=== PATIENT | male | born 1990 | race Caucasian/White ===

== ENCOUNTER 2018-03-20 09:20 | Inpatient (IN) | payer OTHER ==
[~2018-03-20] VITALS: Ht 182.9 cm; Wt 127.5 kg
[2018-03-20] VITALS (10 sets, daily range): BP systolic 82–183; BP diastolic 45–102; PULSE 78–130; RESP 12–50; TEMP 101.3–102.5; O2SAT 95–100
[2018-03-20] MEDS ORDERED: MIDAZOLAM HCL 5 MG/ML VIAL (1 ML) ONE (09:28)
--- NOTE | 2018-03-20 09:53 | RADRPT ---
EXAM DATE/TIME: 03/20/2018 09:33 [facility] COMPARISON: No previous studies available for comparison. INDICATIONS : Endotracheal tube placement. MEDICAL HISTORY : None. SURGICAL HISTORY : None. ENCOUNTER: Initial ACUITY: 1 day PAIN SCORE: Non-responsive. LOCATION: upper chest FINDINGS: Endotracheal tube is identified in the tip terminates at the inferior margin of the clavicles. There is streaky infiltrate in the left lower lobe. CONCLUSION: Patchy left basilar airspace disease. Endotracheal tube placement. Per Barakat MD on March 20, 2018 at 9:51 Board Certified Radiologist. This report was verified electronically.
[2018-03-20] MEDS ORDERED: MIDAZOLAM HCL 2 MG/2 ML VIAL ONE ×2 (09:59→10:17)
[2018-03-20] MEDS ORDERED: SODIUM CHLORID 0.9% 500 ML INJ 500 ML IV ONE (10:00)
[2018-03-20] MEDS ORDERED: MIDAZOLAM HCL 2 MG/2 ML VIAL IV ONE ×3 (10:01→10:46)
[2018-03-20] MEDS ORDERED: FUROSEMIDE 40 MG/4 ML VIAL ONE (10:05)
[2018-03-20] MEDS ORDERED: FUROSEMIDE 40 MG/4 ML VIAL IV PUSH ONE ×2 (10:08→15:00)
[2018-03-20] MEDS ORDERED: SODIUM CHLOR 0.9% 1000 ML INJ 1,000 ML IV SCH (10:21)
[2018-03-20] MEDS ORDERED: ADENOSINE IV SOLN 3 MG/ML 2 ML VIAL ONE ×5 (10:27→10:33)
[2018-03-20] MEDS ORDERED: MISC INFORMATION XX ONE (10:30)
[2018-03-20] MEDS ORDERED: ADENOSINE IV SOLN 3 MG/ML 2 ML VIAL IV PUSH ONE ×2 (10:30)
[2018-03-20] MEDS ORDERED: MIDAZOLAM HCL 5 MG/5 ML VIAL ONE (10:39)
--- NOTE | 2018-03-20 10:58 | CATHPROC ---
[facility] Report Study Information Study Number Admission Scheduled Start Study Start [id number] Mar 20 2018 9:20AM 03/20/2018 Mar 20 2018 9:45AM [place] Service Cardiac Catheterization Admit Source Facility Department Emergency department [facility] [employer] Physician and Clinical Staff Initial Orion Crawford Harpsichord Maker Jacquelyn Gomze,RN Harpsichord MakerEthel Beatty,KAREN Recorder Kaleigh Duarte ,RT(R) Scrub Abraham Gomez RCIS(BS) Procedures Performed Procedure Location (Site) Vessel Name Angiogram LV LV Ventricle Coronary Angiograms LCA Left Coronary Coronary Angiograms RCA Right Coronary L Heart Cath Equipment Time Electrical Appliance Repairer Description Size Mfg Part Number Used/Scraped TRANSDUCER, TRUWAVE [id number] 09:55 APARICIO MACDONALD * Used W/STOCKCOCK *[id number] [id number] *[id number] [id number] *[id number] 09:55 Smadex INDUSTRIES PACK, CCL CUSTOM * Used *[id number] 09:55 doo SUPPORT, ARTERIAL ADULT 74939 *[id number] Used [id number] 09:55 Smadex PACER PEN, SKIN DUAL W/ RULER * Used *[id number] 09:57 MEDTRONIC JR 5.0 DXTERITY CATHETER fr 5 [id number] Used BAND, RADIAL COMPRESSION TR [id number] 10:09 Beat.no MEDICAL 29CM Used LARGE 29 *[id number] SHEATH, FR6 RADIAL PRELUDE 09:55 Beat.no MEDICAL FR 6 [id number] Used EASE 11CM [id number] 09:55 Affinergy WIRE, EXCHANGE 260CM 3MMJ 260CM Used *[id number] 09:55 [employer]COMED OMNIPAQUE, 350 MG, 150ML 150ML [id number] Used [id number] 09:55 [facility] BLANKET,WARM AIR CCL * Used *[id number] History: Allergies Allergy Reaction No Known Allergies Labs Hgb (g/dl) Hct (%) 11.60-17.00 35.00-51.00 13.3 39 BUN (mg/dl) Creatinine (mg/dl) BUN:Creatinine (1:x) 7.00-18.00 0.50-1.30 10.00-20.00 16 1.9 8.4 Na (meq/l) K (meq/l) Cl (meq/l) 136.00-145.00 3.50-5.10 98.00-107.00 142 5.4 108 CPK-MB (ng/ML) 0.50-3.60 Not Drawn Medication Medication Total Dose (Bolus/Oral) Medication Total Dosage/Unit 1% XYLOCAINE 10 mL ADENOSINE 48 mcg FENTANYL 50 mcg LASIX 40 mg PROPOFOL 10 mcg/kg/min RADIAL COCKTAIL 5 mL (Bolus) VERSED 4 mg Medications (Bolus/Oral) Medication Time Given Dosage/Unit Administered By Reason PROPOFOL 03/20/2018 9:45:45 AM 10 mcg/kg/min Patient arrived on 10 mcg/kg/min PROPOFOL in Right Antecubital via Peripheral IV. Pump/Drip Flow = 0 ml/hr using D5W. 1% XYLOCAINE 03/20/2018 9:53:54 AM 10 mL Orion Pompa 10 mL 1% XYLOCAINE given in lab by Orion Pompa in Right Radial via Subcutaneous. Ordered by Orion Pompa. RADIAL COCKTAIL 03/20/2018 9:55:41 AM 5 mL (Bolus) Orion Pompa 5 mL (Bolus) RADIAL COCKTAIL given in lab by Orion Pompa via Radial. Using [Solution Name]. Ordere d by Orion Pompa. VERSED 03/20/2018 10:01:00 AM 2 mg Hesher, Ethel 2 mg VERSED given in lab by Ethel Jose RN in Left Antecubital via Peripheral IV. Ordered by Orion Salinas. FENTANYL 03/20/2018 10:02:00 AM 50 mcg Hesher, Ethel 50 mcg FENTANYL given in lab by Ethel Jose RN in Left Antecubital via Peripheral IV. Ordered by Orion Pompa. LASIX 03/20/2018 10:08:51 AM 40 mg Jacquelyn Gomez 40 mg LASIX given in lab by Jacquelyn Gomez RN via Peripheral IV. Ordered by Orion Pompa. VERSED 03/20/2018 10:12:00 AM 2 mg Hesher, Ethel 2 mg VERSED given in lab by Ethel Jose RN in Left Antecubital via Peripheral IV. Ordered by Orion Salinas. ADENOSINE 03/20/2018 10:28:52 AM 12 mcg Jacquelyn Gomez 12 mcg ADENOSINE given in lab by Jacquelyn Gomez, KAREN in Right Hand via Intra-coronary. Ordered by Orion Yarbrough. ADENOSINE 03/20/2018 10:31:50 AM 18 mcg Ethel Jose 18 mcg ADENOSINE given in lab by Ethel Jose RN in Right Hand via Intra-coronary. Ordered by Orion Salinas. ADENOSINE 03/20/2018 10:35:30 AM 18 mcg Ethel Jose 18 mcg ADENOSINE given in lab by Ethel Jose, KAREN in Right Hand via Intra-coronary. Ordered by Orion Salinas. Medication (Drip) Medication Time Given Dosage/Unit Concentration/Unit Diluent (ml) Solution IV Solutions 03/20/2018 9:45:45 AM 50 mL (IV) NaCl .9 Patient arrived on IV Solutions in Left Antecubital via Peripheral IV. Pump/Drip Flow using NaCl .9. IV Solutions 03/20/2018 9:45:46 AM 50 mL (IV) NaCl .9 Patient arrived on IV Solutions in Right Hand via Peripheral IV. Pump/Drip Flow using NaCl .9. Initial Case Assessment Cardiovascular HR Rhythm NIBP 147 stemi 151/72 Neurological State Unresponsive Respiration - General Respiration Rate SpO2 (%) (B/min) 27 94 Final Case Assessment Cardiovascular HR Rhythm NIBP 147 stemi 151/72 Neurological State Unresponsive Respiration - General Respiration Rate SpO2 (%) (B/min) 27 94 Chronological Log Time Study Chronological Log 9:43:52 Patient arrived via Bed. 9:43:53 Patient Name, D.O.B, / Armband Verified By R.N. Assessment: Initial Case, AA=247 BPM, Rhythm=stemi, JKAL=796/72 mmhg 9:44:00 Neurological: State=Unresponsive Respiration: Resp=27 B/min, SpO2=94 % Vitals capture started with the following parameters, Patient=Adult, Interval=5 min, Initial Pr pmpbyo=549 mmHg, 9:44:48 Deflation Rate=5 mmHg, Cuff placed on Left Arm 9:45:00 Consent signed by the physician and the patient and verified by the [facility] [employer] staff. 9:45:10 Patient has been NPO for Less than 6Hrs. 9:45:10 Disposable Defibrillator Pads Placed On Patient. 9:45:15 A # 20 IV was noted in the Antecubital (left). Grade = 0 9:45:15 A # 20 IV was noted in the Hand (right). Grade = 0 9:45:15 A # 20 IV was noted in the Antecubital (right). Grade = 0 Patient arrived on 10 mcg/kg/min PROPOFOL in Right Antecubital via Peripheral IV. Pump/Drip Harvey w = 0 ml/hr using :45:45 D5W. 9:45:45 Patient arrived on IV Solutions in Left Antecubital via Peripheral IV. Pump/Drip Flow using NaCl .9. 9:45:46 Patient arrived on IV Solutions in Right Hand via Peripheral IV. Pump/Drip Flow using NaCl .9. Vitals capture started with the following parameters, Patient=Adult, Interval=5 min, Initial Pr rsqdyu=862 mmHg, 9:48:04 Deflation Rate=5 mmHg, Cuff placed on Left Arm 9:48:42 HR=80 bpm, ZWEK=618/62 mmhg, SpO2=91.0 %, Resp=6 B/min 9:51:42 Reference ECG taken 9:53:47 Case Start 9:53:54 10 mL 1% XYLOCAINE given in lab by Orion Pompa in Right Radial via Subcutaneous. Ordered by Orion Pompa. 9:54:33 Pressure channel 1 zeroed. 9:54:59 Access site was Right Radial Artery. A SHEATH, FR6 RADIAL PRELUDE EASE 11CM FR 6 was advanced into the Radial (right) using the Perc utaneous 9:55:13 technique. 9:55:22 YJ=476 bpm, HHNB=599/72 mmhg, SpO2=94.0 %, Resp=30 B/min 5 mL (Bolus) RADIAL COCKTAIL given in lab by Orion Pompa via Radial. Using [Solution Name]. Ordered by Peña, :55: Orion. A JR 5.0 DXTERITY CATHETER fr 5 was advanced over a wire. OMNIPAQUE, 350 MG, 150ML 150ML was us ed for 9:56:29 injections. 9:57:33 The RCA was injected and visualized at various angles. OMNIPAQUE, 350 MG, 150ML 150ML used. After removing the current catheter a JL 3.5 INFINITI CATHETER FR 5 was advanced over a WIRE, E XCHANGE 260CM 9:58:25 3MMJ 260CM. 9:58:48 HR=56 bpm, CLIU=330/56 mmhg, SpO2=92.0 %, Resp=23 B/min 10:01:00 2 mg VERSED given in lab by Ethel Jose, KAREN in Left Antecubital via Peripheral IV. Order ed by Orion Pompa. 10:02:00 50 mcg FENTANYL given in lab by Ethel Jose RN in Left Antecubital via Peripheral IV. O rdered by Orion Pompa. 10:02:15 The LCA was injected and visualized at various angles. OMNIPAQUE, 350 MG, 150ML 150ML used . After removing the current catheter a PIGTAIL ANG. INFINITI CATHETER FR 5 was advanced over a W [place], EXCHANGE 10:04:06 260CM 3MMJ 260CM. 10:04:33 HV=037 bpm, BOAJ=133/45 mmhg, SpO2=94.0 %, Resp=47 B/min Recorded Pressure: LV, XE=560, Condition=Condition 1 10:05:19 (Left Ventricle) LV 48/47/48 Recorded Pressure: LV, WH=766, Condition=Condition 1 10:05:28 (Left Ventricle) LV 108/4/33 10:06:14 The LV was injected at 12 cc/sec for a total of 40. contrast used. 10:08:12 Catheter was removed 10:08:49 JC=454 bpm, MTYB=691/47 mmhg, SpO2=92.0 %, Resp=25 B/min 10:08:51 40 mg LASIX given in lab by Jacquelyn Gomez, KAREN via Peripheral IV. Ordered by Valentina Pompa 10:09:17 Case End Radial Compression Device Used. 15 mLs of air placed in BAND, RADIAL COMPRESSION TR LARGE 29 29 CM. Affected 10:10:58 hand ~O2 SATURATION~ % O2 saturation. 10:12:00 2 mg VERSED given in lab by Ethel Jose, KAREN in Left Antecubital via Peripheral IV. Order ed by Orion Pompa. 10:14:33 IS=851 bpm, HIMS=377/64 mmhg, SpO2=92.0 %, Resp=13 B/min 10:19:34 ET=668 bpm, EHDR=287/72 mmhg, SpO2=90.0 %, Resp=61 B/min Assessment: Final Case, VQ=481 BPM, Rhythm=stemi, VDFO=249/72 mmhg 10:21:28 Neurological: State=Unresponsive Respiration: Resp=27 B/min, SpO2=94 % 10:23:44 MS=522 bpm, SZQY=567/94 mmhg, SpO2=93.0 %, Resp=40 B/min 10:26:08 Catheter(s) removed without difficulty 10::20 Cine recording checked. 10:26:30 Bedside Report will be given. 10::43 A Left Heart Cath was performed. 10:28:47 Vitals capture stopped. 10:28:52 12 mcg ADENOSINE given in lab by Jacquelyn Gomez RN in Right Hand via Intra-coronary. Orde red by Orion Pompa. 10:31:50 18 mcg ADENOSINE given in lab by Ethel Jose RN in Right Hand via Intra-coronary. Order ed by Orion Pompa. Vitals capture started with the following parameters, Patient=Adult, Interval=5 min, Initial Pr igfcqw=815 mmHg, 10:32:31 Deflation Rate=5 mmHg, Cuff placed on Left Arm 10:33:25 TPSG=900/61 mmhg, SpO2=92.0 % 10:35:30 18 mcg ADENOSINE given in lab by Ethel Jose RN in Right Hand via Intra-coronary. Orde red by Orion Pompa. 10:39:36 WUII=694/67 mmhg 10:41:35 Patient moved to stretcher 10:41:[address] End Study - Contrast Media Used In Study Contrast Total Opened (mL) Total Used (mL) Total Wasted (mL) Omnipaque 140 140 0 End Study - Maximum Contrast Load Max Contrast Load (mL) 276.3 End Study - Radiation Exposure Fluoro Time (minutes) 4.9 End Study - Patient Disposition Complications Transferred To Interventional Outcome No Critical Care Bed No attempt made
[2018-03-20] MEDS ORDERED: BACITRACIN OINT 0.9 GM PKT TOP ONE (11:00)
[2018-03-20] MEDS ORDERED: PROPOFOL 500 MG/50 ML INJ 50 ML ONE (11:06)
[2018-03-20] MEDS ORDERED: IOHEXOL 350 MG/ML 10 ML VIAL (for RAD DIAG) IVCONTRAST ONE ×2 (11:18→11:47)
--- NOTE | 2018-03-20 11:20 | RADRPT ---
EXAM DATE/TIME: 03/20/2018 10:57 [facility] COMPARISON: No previous studies available for comparison. INDICATIONS : Syncopal episode today collapsed while running. RADIATION DOSE: 60.57 CTDIvol (mGy) MEDICAL HISTORY : Non-responsive. SURGICAL HISTORY : Non-responsive. ENCOUNTER: Initial ACUITY: 1 day PAIN SCALE: Non-responsive LOCATION: cranial TECHNIQUE: Multiple contiguous axial images were obtained of the head. Using automated exposure control and adj ustment of the mA and/or kV according to patient size, radiation dose was kept as low as reasonably a chievable to obtain optimal diagnostic quality images. DICOM format image data is available electro nically for review and comparison. FINDINGS: There is contrast seen within the intracranial arteries and veins which is somewhat limited for detec tion of acute hemorrhage. Ventricles and cisterns are of normal size and configuration. No fractures are seen. There are no hematoma is present. No mass or infarct. CONCLUSION: Normal examination. Per Barakat MD on March 20, 2018 at 11:17 Board Certified Radiologist. This report was verified electronically.
--- NOTE | 2018-03-20 11:25 | RADRPT ---
EXAM DATE/TIME: 03/20/2018 11:04 [facility] COMPARISON: CHEST SINGLE AP, March 20, 2018, 9:33. INDICATIONS : Syncopal episode, suddenly collapsed when running. IV CONTRAST: 72 cc Omnipaque 350 (iohexol) IV RADIATION DOSE: 23.38 CTDIvol (mGy) MEDICAL HISTORY : Non-responsive. SURGICAL HISTORY : Non-responsive. ENCOUNTER: Initial ACUITY: 1 day PAIN SCALE: Non-responsive LOCATION: chest TECHNIQUE: Volumetric scanning of the chest was performed using a pulmonary embolism protocol MIP images were re constructed. Using automated exposure control and adjustment of the mA and/or kV according to patien t size, radiation dose was kept as low as reasonably achievable to obtain optimal diagnostic quality images. DICOM format image data is available electronically for review and comparison. Follow-up recommendations for detected pulmonary nodules are based at a minimum on nodule size and pa tient risk factors according to Fleischner Society Guidelines. FINDINGS: PULMONARY ARTERIES: No filling defects are seen in the pulmonary arteries through the segmental level. LUNGS: Extensive, dependent areas of consolidation in both hemithoraces, left greater than right. In additio n, there are innumerable ground glass nodular densities in the aerated portions of the lung, most pro minent in the apices. PLEURAE: There is no pleural thickening or pleural effusion. MEDIASTINUM: There is good visualization of the great vessels of the middle mediastinum. No evidence of mediastin al or hilar adenopathy/mass. MUSCULOSKELETAL: Within normal limits for patient age. MISCELLANEOUS: The visualized upper abdominal organs demonstrate no acute abnormality. Diffuse hepatic fatty infiltr ation. CONCLUSION: 1. No pulmonary embolus. 2. Fairly extensive dependent areas of consolidation in both hemithoraces. 3. Innumerable ground glass nodular densities in the aerated portions of the lung most prominent in t he apices. Findings are nonspecific but could represent alveolar hemorrhage or septic emboli. Dexter Benitez MD on March 20, 2018 at 11:18 Board Certified Radiologist. This report was verified electronically.
--- NOTE | 2018-03-20 11:41 | MA ---
cc: Orion Pompa MD DATE: 03/20/2018 PROCEDURES PERFORMED: 1. Fluoroscopy with interpretation. 2. Coronary angiography. 3. Left heart catheterization. 4. Left ventriculography. 5. Ascending aortography. REASON FOR PROCEDURE: This is an emergent cardiac catheterization, ST-elevation AL protocol was initiated. No consents were able to be obtained. METHODS: The right wrist was prepped and draped in sterile fashion. The right wrist was anesthetized with 2% lidocaine. Right radial artery was cannulated and a 6-Japanese, 7-cm sheath was placed without difficulty. LEFT HEART CATHETERIZATION: Left ventricular pressures: 110/20 mmHg. LEFT VENTRICULOGRAPHY: Left ventriculography performed in right anterior oblique view using a 5-Japanese angled pigtail catheter and a 40 mL contrast injection. Left ventriculography revealed hyperdynamic left ventricular systolic function with ejection fraction of 75%. CORONARY ANGIOGRAPHY: 1. Left main coronary is angiographically normal. 2. Left anterior descending coronary artery is angiographically normal. 3. Left circumflex gives rise to ramus intermedius branch and obtuse marginal branch, both of which are angiographically normal. 4. Right coronary artery is a dominant vessel which gives rise to posterior descending coronary artery and is angiographically normal. ASCENDING AORTOGRAPHY: Ascending aortography is performed to rule out ascending dissection. A 5-Japanese angled pigtail catheter was placed in the ascending aorta. Ascending aortography revealed normal ascending aorta. No evidence of dissection or dilation. CONCLUSIONS: 1. Angiographically normal coronary arteries. 2. Hyperdynamic left ventricular systolic function. 3. Normal ascending aorta. PLAN: The patient is still quite tachycardic, appears to be sinus tachycardia, although cannot rule out atrial flutter 2:1. We will transfer the patient down emergently for a CT scan of the chest to rule out pulmonary embolism. I have discussed the case with the launch check out. We will obtain a STAT echocardiogram when he arrives in the intensive care unit. Orion Pompa MD JOSE/SB , 11:03 AM , 11:39 AM
[2018-03-20] MEDS ORDERED: RESP: ALBUTEROL 2.5 MG/IPRATROPIUM 0.5 MG NEB (PRN) INH (11:45)
[2018-03-20] MEDS ORDERED: SODIUM PHOSPHATE INJ 30 MMOL in SODIUM CHLOR 0.9% 250 ML INJ 240 ML IV PRN (11:45)
[2018-03-20] MEDS ORDERED: MAGNESIUM HYDROXIDE SUSP 30 ML CUP PO PRN (11:45)
[2018-03-20] MEDS ORDERED: NURSING INFORMATION XX SCH (11:45)
[2018-03-20] MEDS ORDERED: CHLORHEXIDINE GLUCONATE 2 % 1 PACK (2 CLOTHS) TOP PRN (11:45)
[2018-03-20] MEDS ORDERED: SODIUM CHLORIDE 0.9% FLUSH 10 ML FLUSH IV FLUSH PRN (11:45)
[2018-03-20] MEDS ORDERED: DEXMEDETOMIDINE INJ 200 MCG in SODIUM CHLORIDE 0.9% INJ 50 ML IV PRN (11:45)
[2018-03-20] MEDS ORDERED: POTASSIUM PHOSPHATE MONOBASIC 500 MG TAB PO PRN (11:45)
[2018-03-20] MEDS ORDERED: MAGNESIUM SULFATE INJ 4 GM in SODIUM CHLORIDE 0.9% INJ 92 ML IV PRN (11:45)
[2018-03-20] MEDS ORDERED: ONDANSETRON ODT 4 MG TAB PO PRN (11:45)
[2018-03-20] MEDS ORDERED: ACETAMINOPHEN 325 MG TAB PO PRN (11:45)
[2018-03-20] MEDS ORDERED: POTASSIUM PHOSPHATE INJ 30 MMOL in SODIUM CHLOR 0.9% 250 ML INJ 250 ML IV PRN (11:45)
[2018-03-20] MEDS ORDERED: LACTULOSE SYRUP 20 GM/30 ML CUP PO PRN (11:45)
[2018-03-20] MEDS ORDERED: SENNOSIDES 8.6 MG TAB PO PRN (11:45)
[2018-03-20] MEDS ORDERED: POTASSIUM CHLOR 40 MEQ PREMIX 100 ML IV PRN ×2 (11:45)
[2018-03-20] MEDS ORDERED: BISACODYL 10 MG SUPP RECTAL PRN (11:45)
[2018-03-20] MEDS ORDERED: MAGNESIUM SULFATE INJ 2 GM in SODIUM CHLORIDE 0.9% INJ 96 ML IV PRN (11:45)
[2018-03-20] MEDS ORDERED: POTASSIUM PHOSPHATE MONOBASIC 500 MG TAB PO/TUBE PRN (11:45)
[2018-03-20] MEDS ORDERED: POTASSIUM CHLORIDE 25 MEQ EFFERVESCENT TAB PO PRN (11:45)
[2018-03-20] MEDS ORDERED: POTASSIUM CHLOR 20 MEQ PREMIX 100 ML IV PRN ×2 (11:45)
[2018-03-20] MEDS ORDERED: MAGNESIUM OXIDE 400 MG TAB PO PRN (11:45)
--- NOTE | 2018-03-20 11:51 | MB ---
cc: Orion Pompa MD DATE: 03/20/2018 INDICATION: Cardiac arrest. HISTORY OF PRESENT ILLNESS: He is a 27-year-old gentleman who is otherwise healthy with cardiac arrest. The patient is in a [employer], was running with his group when he developed palpitations, lightheadedness and syncope. The details are not clear. No CPR was done. The patient was brought via EMS and en route developed confusion and possible respiratory distress. In the ER, there was wide complex tachycardia and amiodarone 300 mg IV given. The patient was intubated and sedated. History is not obtainable, but there is no known reported medical problems. In the Emergency Department, he had an electrocardiogram which showed right bundle branch block with associated ST changes and continued ventricular ectopy therefore we elected to bring him emergently to the cardiac catheterization lab. PAST MEDICAL HISTORY: Unknown. SOCIAL HISTORY: Unknown. FAMILY HISTORY: Unknown. ALLERGIES: Unknown. MEDICATIONS: Unknown. REVIEW OF SYSTEMS: Unobtainable. PHYSICAL EXAMINATION: GENERAL: The patient is intubated and sedated. Initial hypotension with systolic blood pressure in the 80s; he is tachycardic. Heart rate is 140-150 beats per minute. LUNGS: Bibasilar crackles. HEART: Tachycardic. No murmurs, rubs or gallops. ABDOMEN: Distended. EXTREMITIES: Good pulses. NEUROLOGIC: He has reactive pupils, but otherwise not moving extremities. LABORATORY DATA: Labs pending. ASSESSMENT: 1. Syncope/possible cardiac arrest. 2. Underlying arrhythmia not clear. 3. Abnormal electrocardiogram. PLAN: The patient will be taken emergently to the cardiac catheterization lab for coronary angiography to rule out obstructive coronary disease, spontaneous dissection, plaque rupture, or anomalous coronary artery. We will also plan for ascending aortogram to rule out dissection and possible left ventriculography to see if he has hyperdynamic left ventricular function suggestive of HOCM. He is currently intubated with ventricular ectopy. MD JOSE Castillo/SB , 11:29 AM , 11:50 AM [facility]
[2018-03-20] MEDS: INSULIN NovoLIN REGULAR SUPPLEMENTAL SCALE SQ SCH ×3 (12:00→21:00)
[2018-03-20] MEDS ORDERED: SODIUM CHLOR 0.9% 1000 ML INJ 1,000 ML IV ONE (12:00)
[2018-03-20] MEDS ORDERED: GLUCAGON 1 MG/ML VIAL OTHER PRN (12:00)
[2018-03-20] MEDS: SODIUM CHLOR 0.9% 1000 ML INJ 1,000 ML IV SCH ×2 (12:28→22:53)
[2018-03-20] MEDS ORDERED: IOHEXOL 350 MG/ML 100 ML BTL (for Cath Lab) OTHER ONE (12:47)
[2018-03-20] MEDS ORDERED: IOHEXOL 350 MG/ML 50 ML BTL (for Cath Lab) OTHER ONE (12:47)
--- NOTE | 2018-03-20 13:04 | HHI.HP ---
[facility] Service Critical Care Medicine Primary Care Physician Unknown Admission Diagnosis Syncopal Episode/ Cardiac Arrest Diagnosis: Chief Complaint: Syncopy Travel History International Travel<30 Days: No Contact w/Intl Traveler <30 Da: No Traveled to Known Affected Are: No History of Present Illness This is a 27-year-old male that was exercising [place] the [employer] and per reports and review of medical records, became lightheaded and had a syncopal episode. The patient was admitted to the ED, was noted to have significant respiratory distress and possibly V. tach in route to the hospital. In the ED EKG was obtained which showed a right bundle and some ST changes and a STEMI notification was activated in the ED. the patient was seen by Dr. Pompa, cardiac catheterization emergently was performed. Per telephonic report from Dr. Pompa no obstructive coronary artery disease was visualized. CT angiography was performed to rule out pulmonary embolus and ascending aortogram to rule out dissection. Critical care medicine was consulted. Echo currently being performed. Upon immediate evaluation the patient was noted to have pink frothy sputum in the ET tube, dyssynchronous with the ventilator, spontaneous eye opening was noted however patient was not following commands, patient was on a propofol infusion, sinus tach heart rate 135, normotensive with a blood pressure 134/85. Review of Systems ROS Limitations: Clinical Condition Past Family Social History Allergies: Coded Allergies: No Known Allergies (Verified Allergy, Unknown, 03/20/18) Past Medical History Unable to obtain from patient. Obtained from and patient's parents, no pertinent significant medical history. Past Surgical History Unable to obtain Reported Medications Unable to obtain 2/2 medical condition Active Ordered Medications see MAR Family History Unable to obtain Social History Patient is . Vocation [email or web address] Physical Exam Vital Signs Vital Signs Date Time Temp Pulse Resp B/P (MAP) Pulse Ox O2 Delivery O2 Flow Rate FiO2 03/20/18 11:33 97 100 03/20/18 10:30 95 100 03/20/18 09:31 100 03/20/18 09:30 99 100 03/20/18 09:30 84 12 144/51 (82) 100 Auto-Vent 03/20/18 09:27 81 12 100 Auto-Vent 03/20/18 09:22 78 12 82/54 (63) 99 Physical Exam GENERAL: This is a well-developed well-nourished male currently overbreathing the vent with spontaneous eye opening but not following commands SKIN: Warm and dry. HEAD: Atraumatic. Normocephalic. EYES: Pupils equal and round. Pupils brisk and reactive . No scleral icterus. No injection or drainage. ENT: No nasal bleeding or discharge. Mucous membranes pink and moist. NECK: Trachea midline. No JVD. CARDIOVASCULAR: Normal rate, regular rhythm. RESPIRATORY: No accessory muscle use. Clear to auscultation. Breath sounds equal bilaterally. GASTROINTESTINAL: Abdomen soft, non-tender, nondistended. No guarding. MUSCULOSKELETAL: Extremities without clubbing, cyanosis, or edema. No obvious deformities. NEUROLOGICAL:RASS -1. Spontaneous eye opening, some tracking noted. Not following commands Laboratory Laboratory Tests Test 03/20/18 11:42 Bedside Hemoglobin 13.3 Bedside Hematocrit 39.0 Bedside Sodium 142 Bedside Potassium 5.4 Bedside Chloride 108 Bedside Blood Urea Nitrogen 16 Bedside Creatinine 1.9 Bedside Glucose 163 Imaging Last Impressions Head CT 03/20/18 0000 Signed Impressions: Service Date/Time: Tuesday, March 20, 2018 10:57 - CONCLUSION: Normal examination. Per Barakat MD Chest X-Ray 03/20/18 0000 Signed Impressions: Service Date/Time: Tuesday, March 20, 2018 09:33 - CONCLUSION: Patchy left basilar airspace disease. Endotracheal tube placement. Per Barakat MD CT Angiography 03/20/18 0000 Signed Impressions: Service Date/Time: Tuesday, March 20, 2018 11:04 - CONCLUSION: 1. No pulmonary embolus. 2. Fairly extensive dependent areas of consolidation in both hemithoraces. 3. Innumerable ground glass nodular densities in the aerated portions of the lung most prominent in the apices. Findings are nonspecific but could represent alveolar hemorrhage or septic emboli. Dexter Benitez MD Septic Shock Reassessment Septic shock perfusion: reassessment completed Caprini VTE Risk Assessment Caprini VTE Risk Assessment: Mod/High Risk (score >= 2) Caprini Risk Assessment Model Point Value = 1 Point Value = 2 Point Value = 3 Point Value = 5 Age 41-60 Minor surgery BMI > 25 kg/m2 Swollen legs Varicose veins or History of unexplained or recurrent spontaneous Oral contraceptives or hormone replacement Sepsis (< 1 month) Serious lung disease, including pneumonia (< 1 month) Abnormal pulmonary function Acute myocardial infarction Congestive heart failure (< 1 month) History of inflammatory bowel disease Medical patient at bed rest Age 61-74 Arthroscopic surgery Major open surgery (> 45 min) Laparoscopic surgery (> 45 min) Malignancy Confined to bed (> 72 hours) Immobilizing plaster cast Central venous access Age >= 75 History of VTE Family history of VTE Factor V Leiden Prothrombin [id number] Lupus anticoagulant Anticardiolipin antibodies Elevated serum homocysteine Heparin-induced thrombocytopenia Other congenital or acquired thrombophilia Stroke (< 1 month) Elective arthroplasty Hip, pelvis, or leg fracture Acute spinal cord injury (< 1 month) Prophylaxis Regimen Total Risk Factor Score Risk Level Prophylaxis Regimen 0-1 Low Early ambulation 2 Moderate Order ONE of the following: *Sequential Compression Device (SCD) *Heparin 5000 units SQ BID 3-4 Higher Order ONE of the following medications: *Heparin 5000 units SQ TID *Enoxaparin/Lovenox 40 mg SQ daily (WT < 150 kg, CrCl > 30 mL/min) *Enoxaparin/Lovenox 30 mg SQ daily (WT < 150 kg, CrCl > 10-29 mL/min) *Enoxaparin/Lovenox 30 mg SQ BID (WT < 150 kg, CrCl > 30 mL/min) AND/OR *Sequential Compression Device (SCD) 5 or more Highest Order ONE of the following medications: *Heparin 5000 units SQ TID (Preferred with Epidurals) *Enoxaparin/Lovenox 40 mg SQ daily (WT < 150 kg, CrCl > 30 mL/min) *Enoxaparin/Lovenox 30 mg SQ daily (WT < 150 kg, CrCl > 10-29 mL/min) *Enoxaparin/Lovenox 30 mg SQ BID (WT < 150 kg, CrCl > 30 mL/min) AND *Sequential Compression Device (SCD) Assessment and Plan Problem List: (1) Aspiration of gastric contents ICD Code: T17.910A - Gastric contents in respiratory tract, part unspecified causing asphyxiation, initial encounter (2) Syncope ICD Code: R55 - Syncope and collapse (3) Cardiac arrest ICD Code: I46.9 - Cardiac arrest, cause unspecified Assessment and Plan This is a 27-year-old otherwise healthy male that during exercise and running at the [employer] had a syncopal and possible cardiac arrest. The patient most likely aspirated resulting in respiratory insufficiency and requirement for emergent intubation. Emergent cardiac catheterization revealed no occlusive coronary artery disease. Echo is pending regarding rule out cardiac structural abnormalities. Assessment of neurological status has not been obtained. The patient is critically ill admit to ICU Plan by systems: Neurologic: Encephalopathy Neuro checks per ICU protocol Plan weaning of propofol infusion transition to Precedex infusion to facilitate ventilator weaning Minimize sedative type medication 100 mics of fentanyl IV push to maintain ventilator synchrony Obtain urine drug screen Respiratory: Acute hypoxemic respiratory failure secondary to cardiac event and possible aspiration Maintain O2 sat greater than 92% Obtain ABG on FiO2 of 50 % Follow-up chest x-ray CT Angio chest- No pulmonary embolus. Fairly extensive dependent areas of consolidation in both hemithoraces. Innumerable ground glass nodular densities in the aerated portions of the lung most prominent in the apices. Findings are nonspecific but could represent alveolar hemorrhage or septic emboli. Duo nebs every 6 hours scheduled and every 2 hours as needed Ventilator bundle Cardiovascular: S/P cardiac arrest Cardiology following- Dr. Pompa 03/20 emergent cardiac catheterization-verbal report no occlusive coronary artery disease follow-up formal report. Bolused with 1 L normal saline, patient's heart rate was in the 150s in the cardiac label stamper adenosine 1 dose was given without resolution Telemetry sinus tach-we will consider Cardizem or metoprolol, after bolus of IV fluid will continue to monitor Obtain EKG follow-up QTc Obtain echo Renal: Maintain Reed -- Strict I/Os FEN/GI: Obtain stat BMP, magnesium and phosphorus Replete electrolytes per ICU protocol Insert OGT Maintain NPO status Bowel regimen Heme/ID: Monitor CBC No cultures indicated at this time, will obtain blood urine and sputum cultures if indicated Endocrine: Glucose monitoring per ICU protocol, low-dose regimen -- SSI Prophylaxis: GI Prophylaxis Famotidine IV DVT Prophylaxis -- SCDs Heparin 5000 subcu twice daily Lines: Peripheral IVs providing adequate access at this time. Central line if indicated Dispo: my billing statement This patient remains critically ill with one or more organ systems which are or may become a threat to life. I have spent in excess of 65 minutes discontinuously in the care and management of this patient. This time is exclusive of procedures, and includes, but is not limited to, evaluation of the patient, review of the medical record, discussions with family, consultants, nursing staff, or respiratory therapy, and documentation in the medical record. Code Status Full Discussed Condition With I discussed with medical status update. Plan to decrease sedatives utilize Precedex to facilitate ventilator weaning obtain neurological status obtain SBT trials in anticipation of possible extubation. Lucia Monaco MD March 20, 2018 13:04
[2018-03-20] MEDS ORDERED: PROPOFOL 1000 MG/100 ML INJ 100 ML IV PRN (13:15)
--- NOTE | 2018-03-20 13:18 | ECHRPT ---
Indication: CONCLUSIONS Technically difficult study. The left ventricular systolic function is normal with an estimated ejection fraction in the range of 65-70%. The left ventricle is not well visualized. Wall thickness is measured at the upper limits of normal. The right ventricle was not well visualized. The right atrium is not well visualized. The aortic root and proximal ascending aorta are not well visualized. Trace mitral valve regurgitation. No aortic valve regurgitation. No aortic valve stenosis. No tricuspid regurgitation. The pulmonary valve is not well visualized. The inferior vena cava was not well visualized. BP: / HR: Rhythm: Technical Quality:Technically difficult study FINDINGS LEFT VENTRICLE The left ventricular systolic function is normal with an estimated ejection fraction in the range of 65-70%. The left ventricle is not well visualized. Wall thickness is measured at the upper limits of normal. RIGHT VENTRICLE The right ventricle was not well visualized. LEFT ATRIUM The left atrial size is normal. RIGHT ATRIUM The right atrium is not well visualized. ATRIAL SEPTUM Normal atrial septal thickness without atrial level shunting by limited color doppler interrogation. AORTA The aortic root and proximal ascending aorta are not well visualized. MITRAL VALVE Trace mitral valve regurgitation. AORTIC VALVE No aortic valve regurgitation. No aortic valve stenosis. TRICUSPID VALVE No tricuspid regurgitation. PULMONARY VALVE The pulmonary valve is not well visualized. VESSELS The inferior vena cava was not well visualized. PERICARDIUM No pericardial effusion. Orion Pompa MD, FACC (Electronically Signed) Final Date:20 Mar 2018 13:17
[2018-03-20] MEDS: HEPARIN SODIUM - SQ 10,000 UNITS/ML VIAL SQ SCH (14:00)
[2018-03-20] MEDS: MIDAZOLAM 50 MG/50 ML INJ 50 ML IV PRN ×2 (14:00→22:53)
--- NOTE | 2018-03-20 14:26 | PD ---
HPI Chief Complaint: Respiratory Distress Time Seen by Provider: 10:41 Travel History International Travel<30 days: No Contact w/Intl Traveler<30days: No Traveled to known affect area: No History of Present Illness HPI Patient was brought in by EMS secondary to syncopal episode and altered mental status. 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 EMS arrived on the scene his GCS was 3, room air sat was between 60-70, bradycardic, hypotensive. He was intubated in the field with Versed and etomidate and transported to the ER. [facility] Social History Tobacco Use: No (unsure, patient intubated) Allergies-Medications (Allergen,Severity, Reaction): Coded Allergies: No Known Allergies (Verified Allergy, Unknown, 03/20/18) Reported Meds & Prescriptions Reported Meds & Active Scripts Active Active Prescriptions or Reported Medications Unobtainable Review of Systems ROS Limitations: Intubated Physical Exam Narrative GENERAL: Patient is intubated. SKIN: Diaphoretic. HEAD: Atraumatic. Normocephalic. EYES: Pupils equal and round. No scleral icterus. No injection or drainage. ENT: No nasal bleeding or discharge. Mucous membranes pink and moist. NECK: Trachea midline. No JVD. CARDIOVASCULAR: Regular rate,irreg rhythm. No murmur appreciated. RESPIRATORY: No accessory muscle use. Clear to auscultation. Breath sounds equal bilaterally. GASTROINTESTINAL: Abdomen soft, non-tender, obese. MUSCULOSKELETAL: No obvious deformities. No clubbing. No cyanosis. No edema. NEUROLOGICAL: Intubated PSYCHIATRIC: Intubated Data Data Last Documented VS Vital Signs Date Time Temp Pulse Resp B/P (MAP) Pulse Ox O2 Delivery O2 Flow Rate FiO2 03/20/18 10:30 95 100 03/20/18 09:30 84 12 144/51 (82) Auto-Vent Orders Orders Midazolam Inj (Versed Inj) (03/20/18 09:28) Chest, Single Ap (03/20/18 ) Cardiac Catheterization (03/20/18 ) Midazolam Inj (Versed Inj) (03/20/18 09:59) Fentanyl Inj (Fentanyl Inj) (03/20/18 09:59) Furosemide Inj (Lasix Inj) (03/20/18 10:05) Ct Pulmonary Angiogram (03/20/18 ) Midazolam Inj (Versed Inj) (03/20/18 10:17) Vital Signs (Adult) Q15MX4,Q30MX4,Q1HX4 (03/20/18 10:21) Activity Bed Rest (03/20/18 10:21) Activity Oob Ad Isatu (03/20/18 10:21) Instruction (03/20/18 10:21) Notify Dr: Other (03/20/18 10:21) Misc Information (03/20/18 10:30) Sodium Chlor 0.9% 1000 Ml Inj (Ns 1000 M (03/20/18 10:21) Bacitracin Oint Packet (Bacitracin Oint (03/20/18 11:00) Consult Director Employment (03/20/18 ) Veterinary Dentist / Telemetry SHARRI.[email or web address] (03/20/18 10:21) Adenosine Inj (Adenocard Inj) (03/20/18 10:27) Adenosine Inj (Adenocard Inj) (03/20/18 10:30) MDM Medical Decision Making Medical Screen Exam Complete: Yes Emergency Medical Condition: Yes Differential Diagnosis Aortic dissection, PE, ACS, CVA, intracranial hemorrhage Narrative Course Upon arrival placement of the ET tube was confirmed. Respiratory was at bedside. Another IV was placed and 2 L of IV fluid bolus. Was placed on a youth nutritional monitor and EKG was obtained. EKG showed diffuse ST depression. Dr. Pompa, materials planning analyst cellulose insulation helper, was immediately consulted. EKG was sent to Dr. Pompa. While awaiting Dr. Pmopa's call back, on the monitor patient started having V. tach with a pulse. He was given [address] Pompa called back and advised to call a STEMI alert. Patient was placed on the portable monitor and was transported to the [facility]. While in route his heart rate became weak and decreased to 30s and he was given 1 mg IV epi. His heart rate was in the 80s upon arrival to the lab analyst. Labs were sent from the emergency department but not resulted prior to the patient being transported to the [facility]. Diagnosis Primary Impression: Syncope Qualified Codes: R55 - Syncope and collapse Additional Impression: Respiratory distress Admitting Information Admitting Physician Requests: Admit Scripts Unable to Obtain Active Prescriptions or Reported Meds Condition: Critical Yarely Pinon MD March 20, 2018 14:25
[2018-03-20] MEDS ORDERED: MIDAZOLAM HCL 2 MG/2 ML VIAL IV PUSH ONE (15:15)
[2018-03-20] MEDS ORDERED: Vancomycin Consult Pharmacy 1 EA OTHER SCH (15:15)
[2018-03-20] MEDS ORDERED: MIDAZOLAM 100 MG/100 ML INJ 100 ML IV PRN (15:30)
[2018-03-20] MEDS: fentaNYL DRIP 250 ML IV PRN (16:06)
[2018-03-20] MEDS: PIPERACIL-TAZO 3.375 GM PREMIX 50 ML IV SCH (16:32)
[2018-03-20] MEDS: AZITHROMYCIN INJ 500 MG in SODIUM CHLOR 0.9% 250 ML INJ 250 ML IV SCH (16:33)
[2018-03-20] MEDS: RESP: ALBUTEROL 2.5 MG/IPRATROPIUM 0.5 MG NEB (SCH) INH ×2 (16:59→22:02)
[2018-03-20] MEDS ORDERED: VANCOMYCIN INJ 2,000 MG in SODIUM CHLORID 0.9% 500 ML INJ 500 ML IV ONE (17:00)
[2018-03-20] MEDS ORDERED: PHENYLEPHRINE HCL 10 MG/ML VIAL ONE ×2 (17:57→20:00)
[2018-03-20] MEDS: ARTIFICIAL TEARS OPTH SOLN 15 ML BTL EACH EYE SCH (18:00)
[2018-03-20 18:39] LABS: BICARBONATE 18.8 MEQ/L (21.0-32.0); BLOOD UREA NITROGEN 24 MG/DL (7-18); CALCIUM 7.6 MG/DL (8.5-10.1); CHLORIDE 110 MEQ/L (98-107); CREATININE 3.09 MG/DL (0.60-1.30); GLOMERULAR FILTRATION RATE 25 ML/MIN (>89); GLUCOSE,RANDOM 150 MG/DL (74-106); MAGNESIUM 2.6 MG/DL (1.5-2.5); SODIUM (NA) 143 MEQ/L (136-145)
[2018-03-20] MEDS ORDERED: TERBUTALINE INJ 1 MG/ML AMP SQ PRN (18:45)
[2018-03-20 19:13] LABS: TROPONIN I GREATER THAN 40.00 NG/ML (0.02-0.05)
--- NOTE | 2018-03-20 20:18 | PD.PROCEDR ---
Procedure Note Procedure Procedure- left radial arterial line placement Indication- invasive hemodynamic monitoring Description of procedure: The patient was placed in supine, position. The area was exposed and cleansed with ChloraPrep, times two. Large sterile drape was used to cover the patient, with the site exposed, under sterile conditions including cap, face mask, and sterile gloves. On single attempt, the introducer needle was inserted and arterial flash was obtained. The guide wire was then advanced without any restriction and the needle was removed. Using Seldinger technique the 16 cm arterial catheter was advanced over the guide wire. The guide wire was removed. Good arterial waveform obtained. Antibiotic disc was placed around arterial line at puncture site. The arterial line was secured to the skin with one interrupted silk sutures. The area was bandaged with sterile see-through central line bandage. Deirdre Martell MD March 20, 2018 20:18
--- NOTE | 2018-03-20 20:21 | PD.PROCEDR ---
Central Line Procedure REASON FOR PROCEDURE Central venous access PROCEDURE PERFORMED Central line placement: LIJ central line CONSENT Informed consent for procedure was obtained and time out performed. The risks and benefits of the procedure were discussed to include but limited to bleeding , clot formation, infection, and even . ANESTHESIA Local injection of 1% Lidocaine DESCRIPTION OF THE PROCEDURE The patient was placed in supine, mild Trendelenburg position. The area was exposed and cleansed with ChloraPrep, times two. Large sterile drape was used to cover the patient, with the site exposed, under sterile conditions including cap, face mask, sterile gown, and sterile gloves. On single attempt, the introducer needle was inserted with negative pressure in syringe and venous flash was obtained. The guide wire was then advanced without any restriction and the needle was removed. The dilator was used without any complications. Using Seldinger technique the 20 cm 7F triple lumen catheter was advanced over the guide wire to a depth of 18 centimeters. The guide wire was removed. All ports were aspirated with dark venous blood return and flushed easily with sterile saline. All ports were capped. Antibiotic disc was placed around central line at puncture site. The central line was secured to the skin with two interrupted 2.0 silk sutures. The area was bandaged with sterile see- through central line bandage. RADIOLOGICAL DATA Ultrasound guidance was used to locate LIJ. Doppler/color flow was used to confirm venous flow. COMPLICATIONS: No apparent complications ESTIMATED BLOOD LOSS: Less than 1 cc. Deirdre Martell MD March 20, 2018 20:21
[2018-03-20] MEDS ORDERED: HEPARIN-D5W 25,000 U/250 ML 250 ML IV PRN (20:45)
[2018-03-20] MEDS ORDERED: ASPIRIN 81 MG CHEW TAB CHEW SCH (20:45)
[2018-03-20 21:09] LABS: HEMATOCRIT 44.3 % (39.0-51.0); HEMOGLOBIN 14.9 GM/DL (13.0-17.0); MEAN CELL VOLUME 89.7 FL (80.0-100.0); MEAN CORPUSCULAR HEMOGLOBIN 30.2 PG (27.0-34.0); MEAN CORPUSCULAR HGB CONC 33.7 % (32.0-36.0); MEAN PLATELET VOLUME 7.9 FL (7.0-11.0); PLATELET COUNT 112 TH/MM3 (150-450); RED BLOOD COUNT 4.94 MIL/MM3 (4.50-5.90); RED CELL DISTRIBUTION WIDTH 13.9 % (11.6-17.2); WHITE BLOOD COUNT 26.9 TH/MM3 (4.0-11.0)
--- NOTE | 2018-03-20 21:28 | HHI.PR ---
Subjective Remarks Patient was evaluated again multiple times between 6:45 PM and 8.45 PM today. I was informed that patient is hypotensive with systolic blood pressure 80-90, map 50-55. Currently on Martell-Synephrine at 20 mcg/kg/min. I asked the nurse to titrate Martell-Synephrine to keep map above 65. Additional 1 L fluid bolus given. I emergently placed a left radial arterial line for invasive hemodynamic monitoring and also Flowtrack monitoring. Labs were reviewed creatinine is increased to 3 now troponin more than 40. I discussed with Dr. Pompa again. We will start the patient on aspirin 81 mg daily, IV heparin per [place] protocol without bolus. I placed a central line in the left IJ prior to starting IV heparin. I did a bedside echo which showed EF approximately 50-55%, right ventricle difficult to visualize but size appeared normal. I updated patient's several times. Dr. Pompa is planning for a repeat echo transthoracic versus WANDA tomorrow Additional critical care time discontinuously and excluding procedures is 45 minute. Patient remains very critical Objective Vital Signs Date Time Temp Pulse Resp B/P (MAP) Pulse Ox O2 Delivery O2 Flow Rate FiO2 03/20/18 18:58 95 90/56 03/20/18 16:53 97 100 03/20/18 11:33 97 100 03/20/18 10:30 95 100 03/20/18 09:31 100 03/20/18 09:30 99 100 03/20/18 09:30 84 12 144/51 (82) 100 Auto-Vent 03/20/18 09:27 81 12 100 Auto-Vent 03/20/18 09:22 78 12 82/54 (63) 99 I/O 03/19/18 03/19/18 03/19/18 03/20/18 03/20/18 03/20/18 07:00 15:00 23:00 07:00 15:00 23:00 Intake Total 1050 ml Balance 1050 ml Intake IV Total 1050 ml Result Diagram: 03/20/18205303/20/18 1738 Deirdre Martell MD March 20, 2018 21:28
[2018-03-20 21:30] LABS: ALBUMIN 3.2 GM/DL (3.4-5.0); CALCIUM 7.1 MG/DL (8.5-10.1); CREATININE 3.5 MG/DL (0.60-1.30)
[2018-03-20 21:37] LABS: INTERNATIONAL NORMALIZED RATIO 2.3 RATIO; PROTHROMBIN TIME - PATIENT 23.7 SEC (9.8-11.6)
[2018-03-20 21:44] LABS: CALCIUM-PROTEIN CORRECTED 7.7 MG/DL (8.5-10.1); TOTAL BILIRUBIN ADULT 0.9 MG/DL (0.2-1.0)
--- NOTE | 2018-03-20 21:50 | RADRPT ---
EXAM DATE/TIME: 03/20/2018 20:20 [facility] COMPARISON: CHEST SINGLE AP, March 20, 2018, 9:33. INDICATIONS : Evaluate for central line placement. MEDICAL HISTORY : None. SURGICAL HISTORY : None. ENCOUNTER: Subsequent ACUITY: 1 day PAIN SCORE: Non-responsive. LOCATION: chest FINDINGS: ET tube, NG tube, and left internal jugular central line are well placed. The tip of the central line is in the SVC region. A pneumothorax is not seen. The heart size is normal. The lungs are clear. CONCLUSION: Good placement of a left internal jugular central line. Jasbir Meza MD on March 20, 2018 at 21:46 Board Certified Radiologist. This report was verified electronically.
[2018-03-20] MEDS: FAMOTIDINE 20 MG/2 ML VIAL IV PUSH SCH (22:52)
[2018-03-20] MEDS: DOCUSATE SODIUM 50 MG/SENNA 8.6 MG TAB PO SCH (22:52)
[2018-03-20] MEDS: SODIUM CHLORIDE 0.9% FLUSH 10 ML FLUSH IV FLUSH SCH (22:52)
[2018-03-21] VITALS (19 sets, daily range): BP systolic 85–146; BP diastolic 38–64; PULSE 96–108; RESP 20–23; TEMP 98.6–100.2; O2SAT 90–98
[2018-03-21] MEDS ORDERED: SODIUM BICARBONATE 8.4% SOLN 50 MEQ/50 ML VIAL IV PUSH ONE ×2 (00:09→06:45)
[2018-03-21] MEDS: PHENYLEPHRINE 40 MG in D5W 500 ML IV PRN ×3 (00:11→21:00)
[2018-03-21] MEDS: PIPERACIL-TAZO 3.375 GM PREMIX 50 ML IV SCH ×4 (00:26→18:17)
[2018-03-21] MEDS: HEPARIN SODIUM - SQ 10,000 UNITS/ML VIAL SQ SCH (00:27)
[2018-03-21] MEDS: CHLORHEXIDINE 0.12% (ORAL KIT) 15 ML CUP MT SCH ×3 (00:27→20:00)
[2018-03-21] MEDS: fentaNYL DRIP 250 ML IV PRN ×2 (02:23→12:37)
[2018-03-21] MEDS: DEXTROSE 50% IN WATER 50 ML VIAL(D50) IV PUSH PRN ×3 (03:30→23:07)
[2018-03-21] MEDS: CHLORHEXIDINE GLUCONATE 2 % 1 PACK (2 CLOTHS) TOP SCH (04:00)
[2018-03-21] MEDS: RESP: ALBUTEROL 2.5 MG/IPRATROPIUM 0.5 MG NEB (SCH) INH ×5 (04:03→21:52)
[2018-03-21 05:00] LABS: HEMATOCRIT 42.8 % (39.0-51.0); HEMOGLOBIN 14.5 GM/DL (13.0-17.0); LYMPH % 6.6 % (9.0-44.0); MEAN CELL VOLUME 89.8 FL (80.0-100.0); MEAN CORPUSCULAR HEMOGLOBIN 30.3 PG (27.0-34.0); MEAN CORPUSCULAR HGB CONC 33.8 % (32.0-36.0); MEAN PLATELET VOLUME 8.4 FL (7.0-11.0); MONO % 2.8 % (0.0-8.0); NEUT % 90.3 % (16.0-70.0); PLATELET COUNT 50 TH/MM3 (150-450); RED BLOOD COUNT 4.77 MIL/MM3 (4.50-5.90); RED CELL DISTRIBUTION WIDTH 14.2 % (11.6-17.2)
[2018-03-21 05:01] LABS: AUTOMATED NEUTROPHIL # 19.9 TH/MM3 (1.8-7.7); BASOPHIL # 0.1 TH/MM3 (0-0.2); BASOPHIL % 0.3 % (0.0-2.0); LYMPHOCYTE # 1.5 TH/MM3 (1.0-4.8); MONOCYTE # 0.6 TH/MM3 (0-0.9)
[2018-03-21 05:03] LABS: INTERNATIONAL NORMALIZED RATIO 3.1 RATIO
--- NOTE | 2018-03-21 05:04 | RADRPT ---
EXAM DATE/TIME: 03/21/2018 03:58 [facility] COMPARISON: CHEST SINGLE AP, March 20, 2018, 20:20. INDICATIONS : Shortness of breath, possible pulmonary disease. MEDICAL HISTORY : None. SURGICAL HISTORY : None. ENCOUNTER: Subsequent ACUITY: 2 days PAIN SCORE: Non-responsive. LOCATION: Bilateral chest FINDINGS: A single view of the chest demonstrates endotracheal tube in good position. NG enters stomach. Left c entral line in superior vena cava. Bilateral mostly basilar airspace disease. No effusion or pneumoth orax. CONCLUSION: 1. Cardiomegaly. Bilateral mostly basilar airspace disease similar to March 20. Support apparatus in go od position. Da Kay MD on March 21, 2018 at 5:01 Board Certified Radiologist. This report was verified electronically.
[2018-03-21 06:11] LABS: BANDS 8 % (0-6); CORRECTED NUCLEATED RBC 1 /100 WBC (0-0); LYMPHOCYTES 6 % (9-44); MONOCYTES 1 % (0-8); NEUTROPHIL # MANUAL DIFF 20.5 TH/MM3 (1.8-7.7); NUCLEATED RED BLOOD CELL 1 (0-0); POLYS (SEG NEUTROPHILS) 85 % (16-70)
[2018-03-21] MEDS: DEXT 5%-NACL 0.9% 1000 ML INJ 1,000 ML IV SCH ×2 (06:13→17:40)
[2018-03-21] MEDS: MIDAZOLAM 50 MG/50 ML INJ 50 ML IV PRN ×3 (06:13→23:10)
[2018-03-21] MEDS ORDERED: CALCIUM GLUCONATE INJ 1 GM in DEXTROSE 5% IN WATER 100ML INJ 100 ML IV ONE ×2 (07:00)
[2018-03-21 07:16] LABS: ALBUMIN 2.9 GM/DL (3.4-5.0); BICARBONATE 17.8 MEQ/L (21.0-32.0); CALCIUM 6.7 MG/DL (8.5-10.1); CALCIUM-PROTEIN CORRECTED 7.5 MG/DL (8.5-10.1); CREATININE 4.58 MG/DL (0.60-1.30); MAGNESIUM 2.1 MG/DL (1.5-2.5); RANDOM VANCOMYCIN 35.7 COMMENT; TOTAL BILIRUBIN ADULT 1.3 MG/DL (0.2-1.0); TOTAL PROTEIN 5.5 GM/DL (6.4-8.2)
[2018-03-21] MEDS: INSULIN NovoLIN REGULAR SUPPLEMENTAL SCALE SQ SCH ×4 (08:00→21:00)
--- NOTE | 2018-03-21 08:13 | HHI.CCPN ---
Subjective Remarks/Hospital Course This is a 27-year-old male that was exercising at the [employer] and per reports and review of medical records, became lightheaded and had a syncopal episode. The patient was admitted to the ED, was noted to have significant respiratory distress and possibly V. tach in route to the hospital. In the ED EKG was obtained which showed a right bundle and some ST changes and a STEMI notification was activated in the ED. the patient was seen by Dr. Pompa, cardiac catheterization emergently was performed. Per telephonic report from Dr. Pompa no obstructive coronary artery disease was visualized. CT angiography was performed to rule out pulmonary embolus and ascending aortogram to rule out dissection. Critical care medicine was consulted. Echo currently being performed. Upon immediate evaluation the patient was noted to have pink frothy sputum in the ET tube, dyssynchronous with the ventilator, spontaneous eye opening was noted however patient was not following commands, patient was on a propofol infusion, sinus tach heart rate 135, normotensive with a blood pressure 134/85. Subjective: 03/21: Last evening, patient's second troponin level greater than 40, central line and arterial line placed patient was placed initially on heparin and Phenylephrine infusion. Dr. Pompa discussed case with Dr. Martell possible repeat of echo today as RV was not well visualized on initial echo yesterday. Weaning of sedation yesterday afternoon patient awake responding to commands, then placed on sedation for ventilator synchrony. During the night the patient became hypoglycemic and received an amp of D50, D5W was started. Noted liver enzymes elevated possibly secondary to shock liver, am labs pending. Dietary consult initiated for initiation of tube feeds today. The patient was pancultured yesterday and empiric antibiotics was initiated. He continues to have elevations in temperature WBC count slightly trending down, ID has been consulted. This a.m. the patient was noted to have moderate thrombocytopenia with platelet count diminished HIT panel, fibrinogen and d-dimer pending. Heparin infusion was discontinued. Early this a.m. the patient was noted to have a metabolic acidosis patient receiving 2 A of bicarb repeat ABG pending. Lactate level downtrending. Repeat troponin pending. Objective Vital Signs Date Time Temp Pulse Resp B/P (MAP) Pulse Ox O2 Delivery O2 Flow Rate FiO2 03/21/18 04:03 97 50 03/21/18 03:00 98 03/21/18 03:00 100.2 22 120/52 (74) 03/20/18 09:30 Auto-Vent Intake and Output 03/21/18 03/21/18 03/22/18 08:00 16:00 00:00 Output Total 1450 ml Balance -1450 ml Result Diagram: 03/21/180 03/20/182053 Other Results Microbiology Date/Time Source Procedure Growth Status 03/20/18 15:15 Urine Catheterized Urine Legionella Antigen - Final PRESUMPTIVE NEGATIVE FOR LEGIONELLA P... Complete 03/20/18 15:15 Urine Catheterized Urine Streptococcus pneumoniae Antigen (M - Final PRESUMPTIVE NEGATIVE FOR STREPTOCOCCU... Complete Laboratory Tests Test 03/20/18 12:50 03/21/18 05:57 Blood Gas Puncture Site LT RADIAL ART LINE Blood Gas Patient Temperature 98.6 98.6 Blood Gas HCO3 18 mmol/L (22-26) 17 mmol/L (22-26) Blood Gas Base Excess -7.1 mmol/L (-2-2) -9.1 mmol/L (-2-2) Blood Gas Oxygen Saturation 95 % (90-100) 96 % (90-100) Arterial Blood pH 7.31 (7.380-7.420) 7.27 (7.380-7.420) Arterial Blood Partial Pressure CO2 37 mmHg (38-42) 37 mmHg (38-42) Arterial Blood Partial Pressure O2 110 mmHg (61-120) 127 mmHg (61-120) Arterial Blood Oxygen Content 22.5 Vol % (12.0-20.0) 19.9 Vol % (12.0-20.0) Arterial Blood Carboxyhemoglobin 0.2 % (0-4) 0.3 % (0-4) Arterial Blood Methemoglobin 1.6 % (0-2) 1.6 % (0-2) Blood Gas Hemoglobin 16.7 G/DL (12.0-16.0) 14.6 G/DL (12.0-16.0) Oxygen Delivery Device VENTILATOR VENTILATOR Blood Gas Ventilator Setting PRVC/AC500/20 PRVC/AC Blood Gas Inspired Oxygen 100 % 50 % Imaging Last Impressions Chest X-Ray 03/21/18 0600 Signed Impressions: Service Date/Time: Wednesday, March 21, 2018 03:58 - CONCLUSION: 1. Cardiomegaly. Bilateral mostly basilar airspace disease similar to March 20. Support apparatus in good position. Da Kay MD Head CT 03/20/18 Signed Impressions: Service Date/Time: Tuesday, March 20, 2018 10:57 - CONCLUSION: Normal examination. Per Barakat MD CT Angiography 03/20/18 Signed Impressions: Service Date/Time: Tuesday, March 20, 2018 11:04 - CONCLUSION: 1. No pulmonary embolus. 2. Fairly extensive dependent areas of consolidation in both hemithoraces. 3. Innumerable ground glass nodular densities in the aerated portions of the lung most prominent in the apices. Findings are nonspecific but could represent alveolar hemorrhage or septic emboli. Dexter Benitez MD Last Impressions Head CT 03/20/18 Signed Impressions: Service Date/Time: Tuesday, March 20, 2018 10:57 - CONCLUSION: Normal examination. Per Barakat MD Chest X-Ray 03/20/18 Signed Impressions: Service Date/Time: Tuesday, March 20, 2018 09:33 - CONCLUSION: Patchy left basilar airspace disease. Endotracheal tube placement. Per Barakat MD CT Angiography 03/20/18 Signed Impressions: Service Date/Time: Tuesday, March 20, 2018 11:04 - CONCLUSION: 1. No pulmonary embolus. 2. Fairly extensive dependent areas of consolidation in both hemithoraces. 3. Innumerable ground glass nodular densities in the aerated portions of the lung most prominent in the apices. Findings are nonspecific but could represent alveolar hemorrhage or septic emboli. Dexter Benitez MD Objective Remarks GENERAL: This is a well-developed well-nourished male sedated and intubated SKIN: Warm and dry. HEAD: Atraumatic. Normocephalic. EYES: Pupils equal and round. Pupils brisk and reactive . No scleral icterus. No injection or drainage. Scleral edema left eye ENT: No nasal bleeding or discharge. Mucous membranes pink and moist. NECK: Trachea midline. No JVD. CARDIOVASCULAR: Normal rate, regular rhythm. RESPIRATORY: No accessory muscle use. Clear to auscultation. Breath sounds equal bilaterally. GASTROINTESTINAL: Abdomen soft, non-tender, nondistended. No guarding. Bowel sounds active MUSCULOSKELETAL: Extremities without clubbing, cyanosis, or edema. No obvious deformities. NEUROLOGICAL:RASS -2. Patient initially postarrest - awake tracking responding to commands squeezing hands bilaterally and moving extremities x 4. A/P Problem List: (1) Aspiration of gastric contents ICD Code: T17.910A - Gastric contents in respiratory tract, part unspecified causing asphyxiation, initial encounter Status: Acute (2) Syncope ICD Code: R55 - Syncope and collapse Status: Acute (3) Cardiac arrest ICD Code: I46.9 - Cardiac arrest, cause unspecified (4) TK (acute kidney injury) ICD Code: N17.9 - Acute kidney failure, unspecified Status: Acute (5) Metabolic acidemia ICD Code: E87.2 - Acidosis Status: Acute (6) Elevated lactic acid level ICD Code: R79.89 - Other specified abnormal findings of blood chemistry Status: Acute (7) Thrombocytopenia ICD Code: D69.6 - Thrombocytopenia, unspecified Status: Acute (8) Hypocalcemia ICD Code: E83.51 - Hypocalcemia Status: Acute (9) Bandemia without diagnosis of specific infection ICD Code: D72.825 - Bandemia Status: Acute (10) Leukocytosis ICD Code: D72.829 - Elevated white blood cell count, unspecified Status: Acute Assessment and Plan Plan by systems: Neurologic: Encephalopathy-resolved Neuro checks per ICU protocol Propofol and Precedex discontinued 03/20, midazolam and fentanyl infusion to maintain ventilator synchrony 03/20 urine drug screen- negative Daily sedation vacation Respiratory: Acute hypoxemic respiratory failure Multilobar pneumonia Maintain O2 sat greater than 92% ABG -7.2 7/127/17/-9.1-2 A of sodium bicarbonate IV follow-up repeat ABG in 1 hour 03/21 chest [id number] airspace disease CT Angio chest- No pulmonary embolus. Fairly extensive dependent areas of consolidation in both hemithoraces. Innumerable ground glass nodular densities in the aerated portions of the lung most prominent in the apices. Findings are nonspecific but could represent alveolar hemorrhage or septic emboli. Duo nebs every 6 hours scheduled and every 2 hours as needed Ventilator bundle Cardiovascular: S/P cardiac arrest Cardiology following- Dr. Pompa 03/20 emergent cardiac catheterization-verbal report no occlusive coronary artery disease follow-up formal report. Bolused with 1 L normal saline, patient's heart rate was in the 150s in the cardiac laborer tin can adenosine 1 dose was given without resolution Telemetry sinus tach-we will consider Cardizem or metoprolol, after bolus of IV fluid will continue to monitor Obtain EKG follow-up QTc 03/20 Echo-technically difficult study. The left ventricular systolic function is normal with an estimated ejection fraction in the range of 65-70%. Right atrium and right ventricle not well visualized, possible repeat of echo today . Defer to cardiology Currently on phenylephrine 75 mics-continue to wean for MAP greater than 65 Continue Flowtrack monitoring 03/21 Troponin > 40 Renal: TK Maintain Reed-urine output last 12 hours -1040cc -- Strict I/Os FEN/GI: Shock liver AK I Lactic acidemia Metabolic acidosis Hypocalcemia Rhabdomyolysis Monitor CMP Replete electrolytes per ICU protocol Creatinine continued elevation 3.5->4.5 , nonoliguric. potassium 3.7 nephrology consulted- Dr Diane 1 g calcium gluconate IV AST 2236->3194, ALT 640->1105 continue to monitor trend Creatinine Kinase level [id number] to trend Begin 1/2 NSS with 75 mEq sodium bicarb at 150 cc/hr OGT-initiate tube feeds Bowel regimen Heme/ID: Persistent leukocytosis Moderate thrombocytopenia Febrile illness Monitor CBC Follow-up blood ,urine, sputum culture Legionella, strep pneumococcal-negative Obtain Influenza Antigen Obtain HIT Panel, heparin infusion placed on hold. No active signs of bleeding Obtain fibrinogen and d-dimer level ID Consulted-Dr. Pierce Endocrine: Hypoglycemia Glucose monitoring per ICU protocol, low-dose regimen Received 1 amp of D50, continue to monitor -- SSI Msk: No evidence of compartment syndrome-continue to monitor in the setting of rhabdomyolysis PT evaluation and treat -functional maintenance Prophylaxis: GI Prophylaxis Famotidine IV DVT Prophylaxis -- SCDs Heparin on hold 2/2 coagulopathy /thrombocytopenia Lines: Peripheral IVs providing adequate access at this time. Central line 03/20, Lashawn 03/20 Dispo: my billing statement This patient remains critically ill with one or more organ systems which are or may become a threat to life. I have spent in excess of 49 minutes discontinuously in the care and management of this patient. This time is exclusive of procedures, and includes, but is not limited to, evaluation of the patient, review of the medical record, discussions with family, consultants, nursing staff, or respiratory therapy, and documentation in the medical record. 5/19: Evaluated and discussed with Dr. Pompa at bedside, with in attendance. WANDA planned however patient coagulopathic INR 3.1 plans to tentatively perform in the next 1-2 days, with improvement of coagulopathy. 1338 - Discussed with , urine output starting to decline possibly will require hemodialysis in the next 1-2 days. Continued aggressive hydration with normal saline /sodium bicarbonate infusion, and close monitoring. Physician Lucia Monaco Problem Qualifiers (1) Syncope: Qualified Codes: R55 - Syncope and collapse (2) Leukocytosis: Qualified Codes: D72.825 - Bandemia Lucia Monaco MD March 21, 2018 08:13
[2018-03-21] MEDS ORDERED: POTASSIUM CHLOR 40 MEQ PREMIX 100 ML IV ONE (08:15)
[2018-03-21] MEDS: ARTIFICIAL TEARS OPTH SOLN 15 ML BTL EACH EYE SCH ×3 (09:00→18:16)
[2018-03-21] MEDS: SODIUM CHLORIDE 0.9% FLUSH 10 ML FLUSH IV FLUSH SCH ×2 (09:00→21:00)
[2018-03-21] MEDS: DOCUSATE SODIUM 50 MG/SENNA 8.6 MG TAB PO SCH ×2 (09:58→21:00)
--- NOTE | 2018-03-21 09:58 | PD.CARD.PN ---
Subjective Subjective Remarks intubated sedated interacted with family and physician yesterday on pressor support Objective Medications Current Medications Medications (Trade) Dose Ordered Sig/Sarah Route Start Time Stop Time Status Last Admin (NS Flush) 2 ml UNSCH PRN IV FLUSH 03/20/18 11:45 (NS Flush) 2 ml BID IV FLUSH 03/20/18 21:00 03/20/18 22:52 (Tylenol) 650 mg Q6H PRN PO 03/20/18 11:45 03/21/18 00:26 (Pepcid Inj) 20 mg Q12HR IV PUSH 03/20/18 21:00 03/20/18 22:52 (Tears Naturale Opth Soln) 1 drop TID EACH EYE 03/20/18 13:00 (Zofran Odt) 4 mg Q6H PRN PO 03/20/18 11:45 (Duoneb Neb) 1 ampule Q6HR NEB INH 03/20/18 16:00 03/21/18 09:13 (Duoneb Neb) 1 ampule Q2HR NEB PRN INH 03/20/18 11:45 ([facility] [place] Nursing Information) 1 Q361D XX 03/20/18 11:45 (Chlorhexidine 2% Cloth) 3 pack Taper DAILY@04 TOP 03/21/18 04:00 03/17/19 03:59 03/21/18 04:00 (Chlorhexidine 2% Cloth) 3 pack UNSCH PRN TOP 03/20/18 11:45 (Ludy-Colace) 1 tab BID PO 03/20/18 21:00 03/20/18 22:52 (Milk Of Magnesia Liq) 30 ml Q12H PRN PO 03/20/18 11:45 (Senokot) 17.2 mg Q12H PRN PO 03/20/18 11:45 (Dulcolax Supp) 10 mg DAILY PRN RECTAL 03/20/18 11:45 (Lactulose Liq) 30 ml DAILY PRN PO 03/20/18 11:45 (Peridex 0.12% Liq) 15 ml BID@08,20 MT 03/20/18 20:00 03/21/18 08:31 Potassium Chloride 100 ml @ 50 mls/hr Q2H PRN IV 03/20/18 11:45 Potassium Chloride 100 ml @ 50 mls/hr Q2H PRN IV 03/20/18 11:45 (K-Lyte Cl Eff) 50 meq UNSCH PRN PO 03/20/18 11:45 Potassium Chloride 100 ml @ 25 mls/hr UNSCH PRN IV 03/20/18 11:45 Potassium Chloride 100 ml @ 50 mls/hr Q2H PRN IV 03/20/18 11:45 Magnesium Sulfate 4 gm/Sodium Chloride 100 ml @ 50 mls/hr UNSCH PRN IV 03/20/18 11:45 (Mag-Ox) 800 mg UNSCH PRN PO 03/20/18 11:45 Magnesium Sulfate 2 gm/Sodium Chloride 100 ml @ 50 mls/hr UNSCH PRN IV 03/20/18 11:45 (K-Phos) 2,000 mg Q4H PRN PO 03/20/18 11:45 Sodium Phosphate 30 mmol/Sodium Chloride 250 ml @ 42 mls/hr UNSCH PRN IV 03/20/18 11:45 (K-Phos) 2,000 mg UNSCH PRN PO/TUBE 03/20/18 11:45 Potassium Phosphate 30 mmol/ Sodium Chloride 260 ml @ 42 mls/hr UNSCH PRN IV 03/20/18 11:45 (D50w (Vial) Inj) 50 ml UNSCH PRN IV PUSH 03/20/18 12:00 03/21/18 03:30 (Glucagon Inj) 1 mg UNSCH PRN OTHER 03/20/18 12:00 (NovoLIN R SUPPLEMENTAL SCALE) 1 ACHS SLIDING SCALE SQ 03/20/18 12:00 Fentanyl Citrate 250 ml @ 5 mls/hr TITRATE PRN IV 03/20/18 15:00 03/21/18 02:23 Azithromycin 500 mg/Sodium Chloride 250 ml @ 250 mls/hr Q24H IV 03/20/18 16:00 03/20/18 16:33 Piperacillin Sod/ Tazobactam Sod 50 ml @ 100 mls/hr Q6H IV 03/20/18 18:00 03/21/18 06:13 Pharmacy Profile Note 0 ml @ 0 mls/hr UNSCH OTHER 03/20/18 15:15 Midazolam HCl 50 ml @ 2 mls/hr TITRATE PRN IV 03/20/18 15:45 03/21/18 06:13 Phenylephrine HCl 40 mg/Dextrose 500 ml @ 30 mls/hr TITRATE PRN IV 03/20/18 20:00 03/21/18 00:11 (Brethine Inj) 1 mg UNSCH PRN SQ 03/20/18 18:45 (Aspirin Chew) 81 mg DAILY CHEW 03/20/18 20:45 Future Hold 03/20/18 22:52 Heparin Sodium/ Dextrose 250 ml @ 10 mls/hr TITRATE PRN IV 03/20/18 20:45 Future Hold 03/20/18 22:56 Dextrose/Sodium Chloride 1,000 ml @ 84 mls/hr Q78T00A IV 03/21/18 05:45 03/21/18 06:13 Sodium Bicarbonate 75 meq/Sodium Chloride 1,075 ml @ 150 mls/hr Q7H10M IV 03/21/18 08:00 Potassium Chloride 100 ml @ 25 mls/hr BOLUS ONCE IV 03/21/18 08:15 03/21/18 12:14 03/21/18 08:15 Vital Signs / I&O Vital Signs Date Time Temp Pulse Resp B/P (MAP) Pulse Ox O2 Delivery O2 Flow Rate FiO2 03/21/18 08:06 50 03/21/18 07:46 97 50 03/21/18 07:38 99.0 108 22 146/59 (88) 98 03/21/18 07:36 108 03/21/18 04:03 97 50 03/21/18 04:00 60 03/21/18 03:00 98 03/21/18 03:00 100.2 103 22 120/52 (74) 98 03/21/18 01:55 98 60 03/21/18 00:11 95 143/57 03/21/18 00:00 60 03/20/18 23:00 98 03/20/18 23:00 102.5 93 24 141/62 (88) 98 03/20/18 21:55 98 70 03/20/18 20:00 70 03/20/18 19:00 102.3 96 30 90/56 (67) 98 03/20/18 19:00 100 03/20/18 19:00 96 90/56 03/20/18 18:58 95 90/56 03/20/18 16:53 97 100 03/20/18 16:00 100 5/18/18 15:00 101 03/20/18 15:00 102.0 130 45 82/45 (57) 99 03/20/18 14:00 100 03/20/18 11:33 97 100 03/20/18 11:18 100 03/20/18 11:18 130 03/20/18 11:18 101.3 130 50 183/102 (129) 95 03/20/18 10:30 95 100 I/O 03/20/18 03/20/18 03/20/18 03/21/18 03/21/18 03/21/18 07:00 15:00 23:00 07:00 15:00 23:00 Intake Total 1050 ml 2449 ml 1219.3 ml 50 ml Output Total 3700 ml 1450 ml Balance 1050 ml -1251 ml -230.7 ml 50 ml Intake IV Total 1050 ml 949 ml 1219.3 ml 50 ml Other 1500 ml Output Urine Total 3500 ml 1400 ml Gastric Drainage Total 200 ml 50 ml # Bowel Movements 0 Physical Exam NECK:No JVD or lymphadenopathy. CARDIOVASCULAR: Regular rate and rhythm without murmurs, gallops, or rubs. RESPIRATORY: Breath sounds equal bilaterally. No accessory muscle use. GASTROINTESTINAL: Abdomen soft, non-tender, nondistended. Laboratory Laboratory Tests Test 03/20/18 11:42 03/20/18 12:50 03/20/18 14:30 03/20/18 15:15 Bedside Hemoglobin 13.3 G/DL Bedside Hematocrit 39.0 % Bedside Sodium 142 MMOL/L Bedside Potassium 5.4 MMOL/L Bedside Chloride 108 MMOL/L Bedside Blood Urea Nitrogen 16 MG/DL Bedside Creatinine 1.9 MG/DL Bedside Glucose 163 MG/DL Phosphorus Level 7.6 MG/DL Troponin I 1.18 NG/ML Blood Gas Puncture Site LT RADIAL Blood Gas Patient Temperature 98.6 Blood Gas HCO3 18 mmol/L Blood Gas Base Excess -7.1 mmol/L Blood Gas Oxygen Saturation 95 % Arterial Blood pH 7.31 Arterial Blood Partial Pressure CO2 37 mmHg Arterial Blood Partial Pressure O2 110 mmHg Arterial Blood Oxygen Content 22.5 Vol % Arterial Blood Carboxyhemoglobin 0.2 % Arterial Blood Methemoglobin 1.6 % Blood Gas Hemoglobin 16.7 G/DL Oxygen Delivery Device VENTILATOR Blood Gas Ventilator Setting PRVC/AC500/20 Blood Gas Inspired Oxygen 100 % Lactic Acid Level 5.7 mmol/L Urine Opiates Screen NEG Urine Barbiturates Screen NEG Urine Amphetamines Screen NEG Urine Benzodiazepines Screen POS Urine Cocaine Screen NEG Urine Cannabinoids Screen NEG Test 03/20/18 16:01 03/20/18 17:38 03/20/18 20:54 03/21/18 04:40 Lactic Acid Level 5.7 mmol/L 4.4 mmol/L Blood Urea Nitrogen 24 MG/DL 26 MG/DL 34 MG/DL Creatinine 3.09 MG/DL 3.50 MG/DL 4.58 MG/DL Random Glucose 150 MG/DL 90 MG/DL 112 MG/DL Calcium Level 7.6 MG/DL 7.1 MG/DL 6.7 MG/DL Phosphorus Level 2.0 MG/DL 5.0 MG/DL Magnesium Level 2.6 MG/DL 2.1 MG/DL Sodium Level 143 MEQ/L 145 MEQ/L 143 MEQ/L Potassium Level 4.1 MEQ/L 3.9 MEQ/L 3.7 MEQ/L Chloride Level 110 MEQ/L 114 MEQ/L 110 MEQ/L Carbon Dioxide Level 18.8 MEQ/L 17.0 MEQ/L 17.8 MEQ/L Anion Gap 14 MEQ/L 14 MEQ/L 15 MEQ/L Estimat Glomerular Filtration Rate 25 ML/MIN 21 ML/MIN 16 ML/MIN Troponin I GREATER THAN 40.00 NG/ML GREATER THAN 40.00 NG/ML White Blood Count 26.9 TH/MM3 22.0 TH/MM3 Red Blood Count 4.94 MIL/MM3 4.77 MIL/MM3 Hemoglobin 14.9 GM/DL 14.5 GM/DL Hematocrit 44.3 % 42.8 % Mean Corpuscular Volume 89.7 FL 89.8 FL Mean Corpuscular Hemoglobin 30.2 PG 30.3 PG Mean Corpuscular Hemoglobin Concent 33.7 % 33.8 % Red Cell Distribution Width 13.9 % 14.2 % Platelet Count 112 TH/MM3 50 TH/MM3 Mean Platelet Volume 7.9 FL 8.4 FL Prothrombin Time 23.7 SEC 31.0 SEC Prothromb Time International Ratio 2.3 RATIO 3.1 RATIO Activated Partial Thromboplast Time 34.6 SEC 74.5 SEC Total Protein 6.0 GM/DL 5.5 GM/DL Albumin 3.2 GM/DL 2.9 GM/DL Alkaline Phosphatase 92 U/L 103 U/L Aspartate Amino Transf (AST/SGOT) 2236 U/L 3194 U/L Alanine Aminotransferase (ALT/SGPT) 640 U/L 1105 U/L Total Bilirubin 0.9 MG/DL 1.3 MG/DL Protein Corrected Calcium 7.7 MG/DL 7.5 MG/DL Neutrophils (%) (Auto) 90.3 % Lymphocytes (%) (Auto) 6.6 % Monocytes (%) (Auto) 2.8 % Eosinophils (%) (Auto) 0.0 % Basophils (%) (Auto) 0.3 % Neutrophils # (Auto) 19.9 TH/MM3 Lymphocytes # (Auto) 1.5 TH/MM3 Monocytes # (Auto) 0.6 TH/MM3 Eosinophils # (Auto) 0.0 TH/MM3 Basophils # (Auto) 0.1 TH/MM3 CBC Comment AUTO DIFF Differential Total Cells Counted 100 Neutrophils % (Manual) 85 % Band Neutrophils % 8 % Lymphocytes % 6 % Monocytes % 1 % Neutrophils # (Manual) 20.5 TH/MM3 Nucleated Red Blood Cells 1 /100 WBC Differential Comment FINAL DIFF MANUAL Platelet Estimate LOW Platelet Morphology Comment NORMAL Fibrinogen 119 mg/dL Total Creatine Kinase 16981 U/L Creatine Kinase MB 843.8 NG/ML Creatine Kinase MB % 1.0 % Random Vancomycin Level 35.7 COMMENT Test 03/21/18 05:57 03/21/18 08:36 Blood Gas Puncture Site ART LINE ART LINE Blood Gas Patient Temperature 98.6 98.6 Blood Gas HCO3 17 mmol/L 20 mmol/L Blood Gas Base Excess -9.1 mmol/L -5.9 mmol/L Blood Gas Oxygen Saturation 96 % 97 % Arterial Blood pH 7.27 7.30 Arterial Blood Partial Pressure CO2 37 mmHg 41 mmHg Arterial Blood Partial Pressure O2 127 mmHg 135 mmHg Arterial Blood Oxygen Content 19.9 Vol % 20.3 Vol % Arterial Blood Carboxyhemoglobin 0.3 % 0.2 % Arterial Blood Methemoglobin 1.6 % 1.6 % Blood Gas Hemoglobin 14.6 G/DL 14.8 G/DL Oxygen Delivery Device VENTILATOR VENTILATOR Blood Gas Ventilator Setting PRVC/AC 20/500/PEEP8 Blood Gas Inspired Oxygen 50 % 50 % Imaging Last 24 hours Impressions Chest X-Ray 03/21/18 0600 Signed Impressions: Service Date/Time: Wednesday, March 21, 2018 03:58 - CONCLUSION: 1. Cardiomegaly. Bilateral mostly basilar airspace disease similar to March 20. Support apparatus in good position. Da Kay MD Assessment and Plan Assessment and Plan cardiac arrest - unclear exactly what happened at the time of his event. Suspect arrhythmia induced. Will need electrophysiologic study and probable ICD. will get EP involved once he recovers clinically. Will need to rule out channelopathies, hypertrophic cardiomyopathy, ARVD, ect. rhabdomyolysis - CK 85,000. trop > 40. no obstructive CAD. Aorta no dissection. CTA - no PE. acute liver and kidney injury - suspect shock liver and kidney. possible anoxic encephalopathy all due to hypoperfusion and cardiac arrest. TTE - limited but no regional wall motion abnormalities and EF appears preserved. Ideally, would like to proceed with WANDA for better visualization, but INR 3.0 and platelets 50. noninvasive cardiac index 5. SVR 500 on phenylephrine. good urine output. FiO2 50%. continue hydration IVF given CK and TK DC heparin. not thrombotic mediated event. continue supportive care optimistic for recovery, but will take time. We have not seen his levels peak yet. Orion Pompa MD March 21, 2018 09:58
[2018-03-21] MEDS: FAMOTIDINE 20 MG/2 ML VIAL IV PUSH SCH ×2 (09:59→21:00)
[2018-03-21] MEDS: SODIUM BICARBONATE 8.4% INJ 75 MEQ in SODIUM CHLOR 0.45% 1000 ML INJ 1,000 ML IV SCH ×3 (10:53→16:20)
[2018-03-21 13:55] LABS: URINE COLOR AMBER (YELLW/STRAW)
[2018-03-21 13:56] LABS: BILIRUBIN, URINE NEGATIVE (NEG); BLOOD, URINE LARGE (NEG); GLUCOSE,URINE 70 mg/dL (NEG); KETONE, URINE NEG (NEG); NITRITE,URINE NEG (NEG); URINE LEUKOCYTE ESTERASE NEGATIVE (NEG)
[2018-03-21 13:57] LABS: BACTERIA, URINE RARE /hpf
[2018-03-21] MEDS: DOXYCYCLINE INJ 100 MG in SODIUM CHLORIDE 0.9% INJ 100 ML IV SCH (14:09)
--- NOTE | 2018-03-21 14:14 | PD.ID.CON ---
History of Present Illness Service ID Consult Requested By Dr Monaco Reason for Consult leukocytosis Primary Care Physician Unknown Diagnoses: History of Present Illness [facility] Unable to give history hx obrtained from pt's mother in law 27 yo male just admitted to [employer] [facility] started on intense exersaise programme since Fri. Prior to it pt was overweight and not athletic (per mother inlaw pt jogged for 1-2 mos prior ) He was c/o of muscle soreness and fatigue, but no other c/o Specifically no cough, SOB, GI problems or fever 2 weeks prior pt and multile family members one by one had a flu likel illness with high fevers On Friday around 9 am pt collapsed while running and was intubated in filed On presentation in ARF, shock liver , severe rhabdomyolisis and troponin > 40 His 2 D echo cristine not show RV, but LVSF was in 65-70 range On presentation fever up to 102/.5, WBC of 26 K and lactic acidosis of 4.4 Blood clx negative so far Admission CXR neg, withing 12 hrs infiltrates CTA done on admission showed b/b dependent consolidations with airbronchogramss Pt is remaining on vent, PEEP 8 FiO2 50, no ETT secretions or signs of bleeding , oliguric, on pressors (weaned down to 60 of neosyneprine), no GI bleed He was started on BSA He is appropriette and following during sedation window Review of Systems ROS Limitations: Clinical Condition, Intubated Past Family Social History Allergies: Coded Allergies: No Known Allergies (Verified Allergy, Unknown, 03/20/18) Past Medical History none URI/ flu likel illness 2 weks ago Past Surgical History none Active Ordered Medications Medications where reviewed in EMR Antibiotics Include: azithro zosyn vanco Family History DM, obesity, ETOHism No h/o cardiac sudden deaths in family Social History no tobacco rare social ETOH no travel outside [place] - ever NO travel outside [place] inyears pets: dogs no unsual insets/animal exposure Physical Exam Vital Signs Vital Signs Date Time Temp Pulse Resp B/P (MAP) Pulse Ox O2 Delivery O2 Flow Rate FiO2 03/21/18 13:04 98 50 03/21/18 12:03 50 03/21/18 11:18 98.6 96 20 126/58 (80) 98 03/21/18 11:16 96 03/21/18 08:06 50 03/21/18 07:46 97 50 03/21/18 07:38 99.0 108 22 146/59 (88) 98 03/21/18 07:36 108 03/21/18 04:03 97 50 03/21/18 04:00 60 03/21/18 03:00 98 03/21/18 03:00 100.2 103 22 120/52 (74) 98 03/21/18 01:55 98 60 03/21/18 00:11 95 143/57 03/21/18 00:00 60 03/20/18 23:00 98 03/20/18 23:00 102.5 93 24 141/62 (88) 98 03/20/18 21:55 98 70 03/20/18 20:00 70 03/20/18 19:00 102.3 96 30 90/56 (67) 98 03/20/18 19:00 100 03/20/18 19:00 96 90/56 03/20/18 18:58 95 90/56 03/20/18 16:53 97 100 03/20/18 16:00 100 03/20/18 15:00 101 03/20/18 15:00 102.0 130 45 82/45 (57) 99 03/20/18 14:00 100 Physical Exam CONSTITUTIONAL/GENERAL: This is a moderately ovverweigth young male patient, in no apparent distress. TUBES/LINES/DRAINS: SKIN: No jaundice, rashes, or lesions.B/l knee abrasions, no s/o infx . Skin temperature appropriate. Not diaphoretic. HEAD: Atraumatic. Normocephalic. EYES: Pupils equal and round and reactive. Extraocular motions intact. No scleral icterus. No injection or drainage. Fundi not examined. ENT: Hearing not tested . Nose without bleeding or purulent drainage. Throat without visible erythema, exudates, masses, or lesions. NECK: Trachea midline. Supple, nontender. No palpable thyroid enlargement or nodularity. CARDIOVASCULAR: Regular rate and rhythm without gallops, or rubs + 2/6 systolic murmur on LUSB No JVD. Peripheral pulses symmetric. RESPIRATORY/CHEST: Symmetric, unlabored respirations. Clear to auscultation. Breath sounds equal bilaterally. No wheezes, rales, or rhonchi. GASTROINTESTINAL: Abdomen soft, non-tender, milfdly distended. No hepato- splenomegaly, or palpable masses. No guarding. Bowel sounds hypoactiv GENITOURINARY: Without palpable bladder distension. Reed catheter in place with small amount of dark pilar urine MUSCULOSKELETAL: Extremities without clubbing, cyanosis, or edema. No joint tenderness or effusion noted. No calf tenderness. No mottling or clubbing. LYMPHATICS: No palpable cervical or supraclavicular adenopathy. NEUROLOGICAL: sedated; during sedation window moved all 4 extrememties t command PSYCHIATRIC: unable to assess Laboratory Laboratory Tests Test 03/20/18 14:30 03/20/18 15:15 03/20/18 16:01 03/20/18 17:38 Lactic Acid Level 5.7 5.7 Urine Opiates Screen NEG Urine Barbiturates Screen NEG Urine Amphetamines Screen NEG Urine Benzodiazepines Screen POS Urine Cocaine Screen NEG Urine Cannabinoids Screen NEG Blood Urea Nitrogen 24 Creatinine 3.09 Random Glucose 150 Calcium Level 7.6 Phosphorus Level 2.0 Magnesium Level 2.6 Sodium Level 143 Potassium Level 4.1 Chloride Level 110 Carbon Dioxide Level 18.8 Anion Gap 14 Estimat Glomerular Filtration Rate 25 Troponin I GREATER THAN 40.00 Test 03/20/18 20:54 03/21/18 04:40 03/21/18 05:57 03/21/18 08:36 White Blood Count 26.9 22.0 Red Blood Count 4.94 4.77 Hemoglobin 14.9 14.5 Hematocrit 44.3 42.8 Mean Corpuscular Volume 89.7 89.8 Mean Corpuscular Hemoglobin 30.2 30.3 Mean Corpuscular Hemoglobin Concent 33.7 33.8 Red Cell Distribution Width 13.9 14.2 Platelet Count 112 50 Mean Platelet Volume 7.9 8.4 Prothrombin Time 23.7 31.0 Prothromb Time International Ratio 2.3 3.1 Activated Partial Thromboplast Time 34.6 74.5 Blood Urea Nitrogen 26 34 Creatinine 3.50 4.58 Random Glucose 90 112 Total Protein 6.0 5.5 Albumin 3.2 2.9 Calcium Level 7.1 6.7 Alkaline Phosphatase 92 103 Aspartate Amino Transf (AST/SGOT) 2236 3194 Alanine Aminotransferase (ALT/SGPT) 640 1105 Total Bilirubin 0.9 1.3 Sodium Level 145 143 Potassium Level 3.9 3.7 Chloride Level 114 110 Carbon Dioxide Level 17.0 17.8 Anion Gap 14 15 Estimat Glomerular Filtration Rate 21 16 Protein Corrected Calcium 7.7 7.5 Neutrophils (%) (Auto) 90.3 Lymphocytes (%) (Auto) 6.6 Monocytes (%) (Auto) 2.8 Eosinophils (%) (Auto) 0.0 Basophils (%) (Auto) 0.3 Neutrophils # (Auto) 19.9 Lymphocytes # (Auto) 1.5 Monocytes # (Auto) 0.6 Eosinophils # (Auto) 0.0 Basophils # (Auto) 0.1 CBC Comment AUTO DIFF Differential Total Cells Counted 100 Neutrophils % (Manual) 85 Band Neutrophils % 8 Lymphocytes % 6 Monocytes % 1 Neutrophils # (Manual) 20.5 Nucleated Red Blood Cells 1 Differential Comment FINAL DIFF MANUAL Platelet Estimate LOW Platelet Morphology Comment NORMAL Blood Smear Pathologist Review Erythrocyte Sedimentation Rate 1 Fibrinogen 119 Phosphorus Level 5.0 Magnesium Level 2.1 Lactic Acid Level 4.4 Total Creatine Kinase 86607 Creatine Kinase MB 843.8 Creatine Kinase MB % 1.0 Troponin I GREATER THAN 40.00 Random Vancomycin Level 35.7 Blood Gas Puncture Site ART LINE ART LINE Blood Gas Patient Temperature 98.6 98.6 Blood Gas HCO3 17 20 Blood Gas Base Excess -9.1 -5.9 Blood Gas Oxygen Saturation 96 97 Arterial Blood pH 7.27 7.30 Arterial Blood Partial Pressure CO2 37 41 Arterial Blood Partial Pressure O2 127 135 Arterial Blood Oxygen Content 19.9 20.3 Arterial Blood Carboxyhemoglobin 0.3 0.2 Arterial Blood Methemoglobin 1.6 1.6 Blood Gas Hemoglobin 14.6 14.8 Oxygen Delivery Device VENTILATOR VENTILATOR Blood Gas Ventilator Setting PRVC/AC 20/500/PEEP8 Blood Gas Inspired Oxygen 50 50 Test 03/21/18 09:40 03/21/18 12:00 D-Dimer Quantitative (PE/DVT) GREATER THAN 35.20 Date/Time Source Procedure Growth Status 03/20/18 16:01 Blood Peripheral Aerobic Blood Culture - Preliminary NO GROWTH IN 1 DAY Resulted 03/20/18 16:01 Blood Peripheral Anaerobic Blood Culture - Preliminary NO GROWTH IN 1 DAY Resulted 03/21/18 08:50 Nasal Washing Influenza Types A,B Antigen (JIHAN) - Final NEGATIVE FOR FLU A AND B ANTIGEN.... Complete 03/20/18 15:15 Urine Catheterized Urine Legionella Antigen - Final PRESUMPTIVE NEGATIVE FOR LEGIONELLA P... Complete 03/20/18 15:15 Urine Catheterized Urine Streptococcus pneumoniae Antigen (M - Final PRESUMPTIVE NEGATIVE FOR STREPTOCOCCU... Complete Result Diagram: 03/21/18 0440 03/21/18 0440 Imaging Last Impressions Chest X-Ray 03/21/18 0600 Signed Impressions: Service Date/Time: Wednesday, March 21, 2018 03:58 - CONCLUSION: 1. Cardiomegaly. Bilateral mostly basilar airspace disease similar to March 20. Support apparatus in good position. Da Kay MD Head CT 03/20/18 0000 Signed Impressions: Service Date/Time: Tuesday, March 20, 2018 10:57 - CONCLUSION: Normal examination. Per Barakat MD CT Angiography 03/20/18 0000 Signed Impressions: Service Date/Time: Tuesday, March 20, 2018 11:04 - CONCLUSION: 1. No pulmonary embolus. 2. Fairly extensive dependent areas of consolidation in both hemithoraces. 3. Innumerable ground glass nodular densities in the aerated portions of the lung most prominent in the apices. Findings are nonspecific but could represent alveolar hemorrhage or septic emboli. Dexter Benitez MD Assessment and Plan Assessment and Plan Systemic illness Multi- organ failure: ARF, acute VDRF, shocjk liver, hypotenstion Rhabdomyolisis Sepsis (WBC 26 K, fever 102, lactic acidosis) Pulmonary infiltrates favouring atypocal PNA vs ARDS DIC Prognosis is guarded to poor depending on next 24-48 hrs progress Pt is critically ill and unstable cont azithro zosyn, vanco, add doxycyline fu clx fu lactic acid WANDA CT A/P Discussed Condition With dw RN mother in law Alba Gonsalez (radiology), Chelle Huang(nephrology) Naty Pierce MD March 21, 2018 14:14
--- NOTE | 2018-03-21 14:20 | EKG ---
Date Performed: 03/20/2018 Time Performed: 09:23:46 PTAGE: 27 years EKG: Sinus rhythm RIGHT BUNDLE BRANCH BLOCK LEFT VENTRICULAR HYPERTROPHY AND ST-T CHANGE INTERPRETATION BASED ON A DEF KRIS AGE OF 42 YEARS NO PREVIOUS TRACING DOCTOR: Enrrique Jewell Interpretating Date/Time 03/21/2018 14:18:19
[2018-03-21] MEDS ORDERED: DIATRIZOATE MEGLUM/DIATRIZOATE SOD 9 ML CUP PO ONE (15:00)
--- NOTE | 2018-03-21 15:27 | MB ---
cc: Parish Diane MD DATE: 03/21/2018 REASON FOR CONSULTATION: Acute renal failure management. HISTORY OF PRESENT ILLNESS: This is a 27-year-old male who was training and exercising at the [employer], had no significant previous medical history. The patient apparently had an episode of lightheadedness and syncope while training. The patient was brought to the emergency room and was found to have respiratory distress. There was a questionable possible V-tach en route to the hospital. Here, the patient was intubated. He had a right bundle branch block with ST changes and had a cardiac catheterization, which showed no significant coronary disease. The patient also had a CT angiogram of the chest to rule out any pulmonary embolism and this was negative, as well as an ascending aortogram to rule out dissection and this was also negative. The patient was brought to the ICU and has been maintained with pressor support. Of note, he had findings of a significantly elevated CPK level of 84,000 consistent with rhabdomyolysis. The patient at this time is in the ICU, is intubated and is on pressors, which are weaning off, and he is on aggressive IV fluids for treatment of rhabdomyolysis. Of note, it is unknown what his previous creatinine level was. However, his creatinine on presentation was 1.9 here. This has risen to a level of 4.58 now. He had initially 4.9 liters of urine output over his initial hospitalization stay over the last 24 hours with 1.4 liters of urine output overnight; however, over the last 4-6 hours, his urine output has significantly decreased to approximately 10 mL per hour right now. The patient was seen with cardiology and it was thought that his cardiac arrest may be of possible electrophysiological pathology. His coronaries are otherwise clean. He is resting in bed at this time, is intubated and sedated, and nephrology is consulted for further evaluation. REVIEW OF SYSTEMS: Unobtainable. The patient is intubated at this time. ALLERGIES: NO KNOWN DRUG ALLERGIES. PAST MEDICAL HISTORY: Unknown. No significant medical history reported in the charts from discussion with the patient's . PAST SURGICAL HISTORY: Unknown. MEDICATION: Unknown if patient was taking any medications at home. FAMILY HISTORY: Unknown. SOCIAL HISTORY: The patient is and is at the [employer]. PHYSICAL EXAMINATION: VITAL SIGNS: At time of evaluation, temperature 98.6, pulse 96, respiratory rate 20, blood pressure 126/58, pulse oximetry 98% on 50% FIO2. GENERAL: Intubated, sedated. CARDIAC: Regular rate and rhythm. PULMONARY: Lungs decreased breath sounds at the bases, coarse rhonchi. ABDOMEN: Soft, nontender and nondistended. EXTREMITIES: No edema. Soft extremities. LABORATORY FINDINGS: White count 22, hemoglobin 14.5, hematocrit 42.8 with platelet count of 50. Sodium 143, potassium 3.7, chloride 110, bicarbonate 17.8, BUN 34, creatinine 4.58, glucose of 112. Lactic acid 4.4, calcium 6.7, corrected calcium 7.5, phosphorus 5.0, magnesium 2.1, AST 3194, ALT 1105. CK level of 84,633, CK-MB of 843. Troponin level greater than 40. Albumin level 2.9. Tox screen positive for benzodiazepines. Urinalysis is pending. HIT panel is pending. ASSESSMENT AND PLAN: 1. Acute kidney injury. The patient presents with rhabdomyolysis with a CK level of 84,000. This is likely due to exercise-induced rhabdomyolysis. It is unclear if the patient has been taking any pre-workout supplements or other medications. His tox screen was only positive for benzodiazepines. At this time, agree with aggressive IV fluids. He is currently on half normal saline with 75 mEq of sodium bicarbonate at 200 mL per hour. I agree with aggressive fluid resuscitation. The patient has findings of shock liver, as well, and this is all likely secondary to rhabdomyolysis with additional cardiac arrest upon presentation here. The patient also had contrast exposure with the cardiac catheterization and a CT angiogram. This was done on the . Probably will see some contrast effects in the next 24-48 hours. Urinalysis is pending otherwise at this time. We will go ahead and order a renal ultrasound to assess any findings of chronic kidney disease. At this point, agree with aggressive fluid resuscitation. Of concern, he has had some decrease in urine output. His creatinine has increased to a level of 4.58. Continue to closely monitor at this time. His electrolytes are otherwise stable with the potassium 3.7. Should there be little improvement in the renal function or minimal urine output over the next 24-48 hours, may consider for dialysis initiation; however, continue with aggressive fluid resuscitation at this time. 2. Cardiac arrest. The patient had a negative cardiac catheterization with apparent 65-75% ejection fraction. The patient is seen with cardiology. It is unclear if there is an electrophysiological etiology for his cardiac arrest. I am unclear if this is secondary to rhabdomyolysis as well. Continue to closely monitor him with cardiology. 3. Respiratory failure. The patient is intubated at this time. Of note, a CT angiogram of the chest revealed findings of possible alveolar hemorrhage versus septic emboli. Continue to closely monitor. 4. Acidosis. The patient with bicarbonate level of 17. The patient is on IV fluids with bicarbonate. Continue with half normal saline with 75 mEq of sodium bicarbonate at 200 mL per hour. MD MANPREET HallP/TRESSA , 01:39 PM , 03:25 PM MTDD
[2018-03-21] MEDS: AZITHROMYCIN INJ 500 MG in SODIUM CHLOR 0.9% 250 ML INJ 250 ML IV SCH (16:39)
[2018-03-21] MEDS ORDERED: NOREPINEPHRINE-DEXTROSE DRIP 250 ML IV ONE (18:11)
[2018-03-21] MEDS ORDERED: TERBUTALINE INJ 1 MG/ML AMP SQ PRN (18:15)
[2018-03-21] MEDS: NOREPINEPHRINE-DEXTROSE DRIP 250 ML IV PRN (18:17)
--- NOTE | 2018-03-21 19:20 | HHI.PR ---
Addendum to Inpatient Note Additional Information pt is deteriorating BP 80s/40s, pressors are up again no UOP Lactic acid went up STAT CT ordered and is P Naty Pierce MD March 21, 2018 19:20
[2018-03-21] MEDS: LACTATED RINGER'S 1000 ML INJ 1,000 ML IV SCH ×3 (19:30→22:00)
--- NOTE | 2018-03-21 19:50 | RADRPT ---
EXAM DATE/TIME: 03/21/2018 19:33 [facility] COMPARISON: No previous studies available for comparison. INDICATIONS : Distention. MEDICAL HISTORY : None. SURGICAL HISTORY : None. ENCOUNTER: Subsequent ACUITY: 2 days PAIN SCORE: Non-responsive. LOCATION: Abdomen. FINDINGS: Supine view of the abdomen was performed. The abdominal bowel gas pattern is normal. No abnormal ma sses, calcifications, or organomegaly is seen. The osseous structures are unremarkable. CONCLUSION: Unremarkable abdomen. Piero Garzon MD on March 21, 2018 at 19:48 Board Certified Radiologist. This report was verified electronically.
[2018-03-21 20:34] LABS: AUTOMATED NEUTROPHIL # 21.1 TH/MM3 (1.8-7.7); BASOPHIL % 0.2 % (0.0-2.0); EOSINOPHIL % 0.1 % (0.0-4.0); HEMATOCRIT 37.5 % (39.0-51.0); HEMOGLOBIN 12.6 GM/DL (13.0-17.0); LYMPH % 1.9 % (9.0-44.0); LYMPHOCYTE # 0.4 TH/MM3 (1.0-4.8); MEAN CELL VOLUME 90.5 FL (80.0-100.0); MEAN CORPUSCULAR HEMOGLOBIN 30.5 PG (27.0-34.0); MEAN CORPUSCULAR HGB CONC 33.7 % (32.0-36.0); MEAN PLATELET VOLUME 9.3 FL (7.0-11.0); MONO % 1.4 % (0.0-8.0); MONOCYTE # 0.3 TH/MM3 (0-0.9); NEUT % 96.4 % (16.0-70.0); PLATELET COUNT 28 TH/MM3 (150-450); RED BLOOD COUNT 4.15 MIL/MM3 (4.50-5.90); RED CELL DISTRIBUTION WIDTH 14.3 % (11.6-17.2); WHITE BLOOD COUNT 21.8 TH/MM3 (4.0-11.0)
[2018-03-21 20:44] LABS: INTERNATIONAL NORMALIZED RATIO 3.3 RATIO; PROTHROMBIN TIME - PATIENT 33.7 SEC (9.8-11.6)
[2018-03-21 21:06] LABS: BANDS 16 % (0-6); BASOPHILS 1 % (0-2); CORRECTED NUCLEATED RBC 1 /100 WBC (0-0); LYMPHOCYTES 2 % (9-44); MONOCYTES 2 % (0-8); NEUTROPHIL # MANUAL DIFF 20.7 TH/MM3 (1.8-7.7); NUCLEATED RED BLOOD CELL 1 (0-0); POLYS (SEG NEUTROPHILS) 79 % (16-70)
[2018-03-21 21:07] LABS: OVALOCYTES 1+ (NORMAL)
[2018-03-21 21:12] LABS: ALBUMIN 2.6 GM/DL (3.4-5.0); BICARBONATE 17.8 MEQ/L (21.0-32.0); CALCIUM 6.1 MG/DL (8.5-10.1); CREATININE 6.37 MG/DL (0.60-1.30)
[2018-03-21 21:22] LABS: TOTAL BILIRUBIN ADULT 2.5 MG/DL (0.2-1.0); TOTAL PROTEIN 5.2 GM/DL (6.4-8.2)
--- NOTE | 2018-03-21 21:37 | HHI.PR ---
Addendum to Inpatient Note Addendum Reason: Additional Documentation Additional Information Pt cont to deterioatae AST in 8K Lactic acid is 8,1 per my conversation with [id number] pt has no abx allergies anaphylaxis is mention in past medf history He remains critical and too unstable for CT , sats 88% on 100% FiO2 Abx were adjusted : azactam, flagyl, will cont vanco per levels will add micofaungin Bowel ischemia is primary concern Naty Pierce MD March 21, 2018 21:37
--- NOTE | 2018-03-21 21:43 | HHI.PR ---
Addendum to Inpatient Note Additional Information dw family again: pt gets rash to PCN, not anaphylaxis Naty Pierce MD March 21, 2018 21:43
--- NOTE | 2018-03-21 21:58 | RADRPT ---
EXAM DATE/TIME: 03/21/2018 20:41 [facility] COMPARISON: No previous studies available for comparison. INDICATIONS : Increased BUN/Creatinine. MEDICAL HISTORY : Syncope. Cardiac issues. Acute kidney injury. Thrombocytopenia. SURGICAL HISTORY : Cardiac catheterization. ENCOUNTER: Initial ACUITY: 1 day PAIN SCORE: Nonresponsive. LOCATION: Bilateral flank MEASUREMENTS: RIGHT KIDNEY: 10.2 x 5.9 x 4.8 cm LEFT KIDNEY: 11.6 x 6.1 x 6.2 cm FINDINGS: RIGHT KIDNEY: Renal cortex is normal in thickness and borderline increased echotexture. No hydronephrosis, stone, or mass. LEFT KIDNEY: Renal cortex is normal in thickness and borderline increased echotexture. No hydronephrosis, stone, or mass. BLADDER: Decompressed by Reed catheter. CONCLUSION: 1. Kidneys are borderline echogenic which can be seen with medical renal disease. 2. No hydronephrosis. Piero Garzon MD on March 21, 2018 at 21:55 Board Certified Radiologist. This report was verified electronically.
[2018-03-21] MEDS ORDERED: MICAFUNGIN INJ 150 MG in SODIUM CHLORIDE 0.9% INJ 100 ML IV SCH (22:00)
[2018-03-21] MEDS: metroNIDAZOLE 500 MG INJ 100 ML IV SCH (23:03)
[2018-03-21] MEDS: AZTREONAM INJ 500 MG in SODIUM CHLORIDE 0.9% INJ 100 ML IV SCH (23:16)
[2018-03-21] MEDS ORDERED: SODIUM CHLOR 0.9% 1000 ML INJ 1,000 ML IV ONE ×3 (23:30)
[2018-03-21] MEDS ORDERED: SODIUM BICARBONATE 8.4% INJ 50 MEQ/50 ML SYR IV PUSH ONE ×2 (23:30)
[2018-03-21] MEDS: MICAFUNGIN INJ 150 MG in SODIUM CHLORIDE 0.9% INJ 100 ML IV SCH (23:49)
[2018-03-22] VITALS (20 sets, daily range): BP systolic 96–139; BP diastolic 26–54; PULSE 92–116; RESP 25–38; TEMP 96.7–99.1; O2SAT 88–100
[2018-03-22] MEDS: LACTATED RINGER'S 1000 ML INJ 1,000 ML IV SCH (00:41)
[2018-03-22] MEDS ORDERED: EPINEPHrine HCL (1:10,000) 1 MG/10 ML SYRINGE ONE (00:59)
[2018-03-22] MEDS ORDERED: ATROPINE SULFATE 1 MG/10 ML SYRINGE ONE (00:59)
[2018-03-22] MEDS ORDERED: SODIUM BICARBONATE 8.4% SOLN 50 MEQ/50 ML VIAL IV PUSH ONE ×2 (01:30→03:30)
[2018-03-22] MEDS: CHLORHEXIDINE GLUCONATE 2 % 1 PACK (2 CLOTHS) TOP SCH (02:00)
[2018-03-22] MEDS: DOXYCYCLINE INJ 100 MG in SODIUM CHLORIDE 0.9% INJ 100 ML IV SCH ×2 (02:00→13:22)
[2018-03-22] MEDS ORDERED: SODIUM BICARBONATE 8.4% INJ 100 ML ONE (02:24)
[2018-03-22] MEDS: NOREPINEPHRINE-DEXTROSE DRIP 250 ML IV PRN ×7 (02:25→21:44)
--- NOTE | 2018-03-22 02:33 | RADRPT ---
EXAM DATE/TIME: 03/22/2018 01:10 [facility] COMPARISON: No previous studies available for comparison. INDICATIONS : Multiple organ failure; possible ischemic bowel. ORAL CONTRAST: Prescribed oral contrast ingested. RADIATION DOSE: 22.10 CTDIvol (mGy) MEDICAL HISTORY : Non-responsive. SURGICAL HISTORY : Non-responsive. ENCOUNTER: Initial ACUITY: 1 day PAIN SCALE: Non-responsive LOCATION: abdomen TECHNIQUE: Volumetric scanning of the abdomen and pelvis was performed. Using automated exposure control and ad justment of the mA and/or kV according to patient size, radiation dose was kept as low as reasonably achievable to obtain optimal diagnostic quality images. DICOM format image data is available electro nically for review and comparison. FINDINGS: Hepatic consolidation at the lung bases. NG enters stomach. Diffuse fatty liver. There is fat stranding around the pancreas may represent pancreatitis. There is also some anasarca. There is neural thickening diffusely in the colon most characteristic of a colitis. Right femoral samina ous catheter present with tip in the right common iliac vein. Reed catheter in bladder. No acute bon y abnormalities. No acute findings in the spleen, adrenals and kidneys. Residual contrast in kidneys characteristic of renal dysfunction. CONCLUSION: 1. Diffuse mild mural thickening of the colon most characteristic of a mild colitis. 2. Diffuse fatty infiltration of the liver. 3. Residual contrast in kidneys from contrast injection performed yesterday characteristic of diminis hed renal function. 4. Mild anasarca. Dense consolidation at the lung bases with trace pleural fluid. 5. NG in stomach. Reed catheter in bladder. Right femoral line present. 1. Da Kay MD on March 22, 2018 at 1:54 Board Certified Radiologist. This report was verified electronically.
[2018-03-22] MEDS ORDERED: CALCIUM CHLORIDE 10% SOLN 1 GRAM/10 ML SYR IV ONE ×2 (03:30→13:00)
[2018-03-22] MEDS ORDERED: CALCIUM CHLORIDE 10% SOLN 1 GRAM/10 ML SYR ONE ×2 (03:35→12:14)
[2018-03-22] MEDS: VASOPRESSIN INJ 40 UNITS in DEXTROSE 5% IN WATER 100ML INJ 98 ML IV SCH ×4 (03:45→18:08)
[2018-03-22] MEDS: RESP: ALBUTEROL 2.5 MG/IPRATROPIUM 0.5 MG NEB (SCH) INH ×4 (03:45→21:18)
[2018-03-22] MEDS: PHENYLEPHRINE 40 MG in D5W 500 ML IV PRN ×8 (03:50→23:19)
[2018-03-22] MEDS: AZTREONAM INJ 500 MG in SODIUM CHLORIDE 0.9% INJ 100 ML IV SCH ×4 (05:00→21:44)
[2018-03-22 05:32] LABS: INTERNATIONAL NORMALIZED RATIO 3.8 RATIO; PROTHROMBIN TIME - PATIENT 37.8 SEC (9.8-11.6)
[2018-03-22] MEDS: fentaNYL DRIP 250 ML IV PRN (05:34)
[2018-03-22] MEDS: DEXT 5%-NACL 0.9% 1000 ML INJ 1,000 ML IV SCH ×2 (05:35→16:33)
--- NOTE | 2018-03-22 05:51 | PD.PROCEDR ---
Procedure Note Procedure Dialysis catheter placement A time-out was completed verifying correct patient, procedure, site, positioning , and special equipment if applicable. The patient was placed in a dependent position appropriate for central line placement based on the vein to be cannulated. The patients right groin was prepped and draped in sterile fashion. 1% Lidocaine was used to anesthetize the surrounding skin area. A triple lumen 9-Afghan Cordis catheter was introduced into the the common femoral vein using the Seldinger technique and under ultrasound guidance. The catheter was threaded smoothly over the guide wire and appropriate blood return was obtained. Each lumen of the catheter was evacuated of air and flushed with sterile saline. The catheter was then sutured in place to the skin and a sterile dressing applied. Perfusion to the extremity distal to the point of catheter insertion was checked and found to be adequate. Estimated Blood Loss: 1ml The patient tolerated the procedure well and there were no complications. Jamin Lassiter MD March 22, 2018 5:51 am
[2018-03-22] MEDS: SODIUM BICARBONATE 8.4% INJ 75 MEQ in SODIUM CHLOR 0.45% 1000 ML INJ 1,000 ML IV SCH ×3 (05:59→21:46)
[2018-03-22] MEDS: MIDAZOLAM 50 MG/50 ML INJ 50 ML IV PRN ×2 (06:00→16:58)
[2018-03-22] MEDS: metroNIDAZOLE 500 MG INJ 100 ML IV SCH ×3 (06:00→21:44)
--- NOTE | 2018-03-22 06:01 | RADRPT ---
EXAM DATE/TIME: 03/22/2018 05:24 [facility] COMPARISON: CHEST SINGLE AP, March 21, 2018, 3:58. INDICATIONS : Respiratory failure. MEDICAL HISTORY : None. SURGICAL HISTORY : None. ENCOUNTER: Subsequent ACUITY: 2 days PAIN SCORE: Non-responsive. LOCATION: Bilateral chest FINDINGS: A single view of the chest demonstrates endotracheal tube in good position. NG enters stomach. Left c entral line in superior vena cava. Bilateral airspace disease slightly increased since March 21. Probab le small effusions. CONCLUSION: 1. Slight increase in bilateral airspace disease over the last day. Support apparatus unchanged. Da Kay MD on March 22, 2018 at 5:59 Board Certified Radiologist. This report was verified electronically.
[2018-03-22 07:05] LABS: AUTOMATED NEUTROPHIL # 25.7 TH/MM3 (1.8-7.7); BASOPHIL # 0.1 TH/MM3 (0-0.2); BASOPHIL % 0.2 % (0.0-2.0); HEMATOCRIT 39.4 % (39.0-51.0); HEMOGLOBIN 12.5 GM/DL (13.0-17.0); LYMPH % 3.7 % (9.0-44.0); MEAN CELL VOLUME 95.3 FL (80.0-100.0); MEAN CORPUSCULAR HEMOGLOBIN 30.3 PG (27.0-34.0); MEAN CORPUSCULAR HGB CONC 31.8 % (32.0-36.0); MEAN PLATELET VOLUME 8.7 FL (7.0-11.0); MONO % 1.5 % (0.0-8.0); MONOCYTE # 0.4 TH/MM3 (0-0.9); NEUT % 94.6 % (16.0-70.0); PLATELET COUNT 74 TH/MM3 (150-450); RED BLOOD COUNT 4.14 MIL/MM3 (4.50-5.90); RED CELL DISTRIBUTION WIDTH 14.9 % (11.6-17.2); WHITE BLOOD COUNT 27.1 TH/MM3 (4.0-11.0)
[2018-03-22 07:23] LABS: ALBUMIN 2.3 GM/DL (3.4-5.0); ALKALINE PHOSPHATASE 112 U/L (45-117); BICARBONATE 12.1 MEQ/L (21.0-32.0); BLOOD UREA NITROGEN 40 MG/DL (7-18); CALCIUM 6.1 MG/DL (8.5-10.1); CHLORIDE 103 MEQ/L (98-107); CREATININE 6.52 MG/DL (0.60-1.30); GLOMERULAR FILTRATION RATE 10 ML/MIN (>89); GLUCOSE,RANDOM 76 MG/DL (74-106); MAGNESIUM 1.8 MG/DL (1.5-2.5); RANDOM VANCOMYCIN 18.1 COMMENT; SODIUM (NA) 145 MEQ/L (136-145); TOTAL BILIRUBIN ADULT 2.6 MG/DL (0.2-1.0)
[2018-03-22 07:27] LABS: CALCIUM-PROTEIN CORRECTED 7.1 MG/DL (8.5-10.1)
[2018-03-22 07:28] LABS: TROPONIN I GREATER THAN 40.00 NG/ML (0.02-0.05)
[2018-03-22 07:34] LABS: AST (GOT) GREATER THAN 10000 U/L (15-37)
[2018-03-22] MEDS ORDERED: ALBUMIN 5% INJ 500 ML IV ONE (07:50)
[2018-03-22] MEDS ORDERED: SODIUM BICARBONATE 8.4% SOLN 50 MEQ/50 ML VIAL IV ONE ×2 (08:00→12:45)
[2018-03-22] MEDS: INSULIN NovoLIN REGULAR SUPPLEMENTAL SCALE SQ SCH ×4 (08:00→21:00)
[2018-03-22] MEDS ORDERED: SODIUM CHLOR 0.9% 250 ML INJ 250 ML IV ONE (08:00)
[2018-03-22] MEDS: CHLORHEXIDINE 0.12% (ORAL KIT) 15 ML CUP MT SCH ×2 (08:09→20:00)
[2018-03-22 08:12] LABS: ALT (GPT) GREATER THAN 10000 U/L (12-78)
[2018-03-22] MEDS ORDERED: DEXTROSE 10% INJ 1,000 ML IV SCH (08:15)
--- NOTE | 2018-03-22 08:15 | HHI.CCPN ---
Subjective Remarks/Hospital Course This is a 27-year-old male that was exercising at the [employer] and per reports and review of medical records, became lightheaded and had a syncopal episode. The patient was admitted to the ED, was noted to have significant respiratory distress and possibly V. tach in route to the hospital. In the ED EKG was obtained which showed a right bundle and some ST changes and a STEMI notification was activated in the ED. the patient was seen by Dr. Pompa, cardiac catheterization emergently was performed. Per telephonic report from Dr. Pompa no obstructive coronary artery disease was visualized. CT angiography was performed to rule out pulmonary embolus and ascending aortogram to rule out dissection. Critical care medicine was consulted. Echo currently being performed. Upon immediate evaluation the patient was noted to have pink frothy sputum in the ET tube, dyssynchronous with the ventilator, spontaneous eye opening was noted however patient was not following commands, patient was on a propofol infusion, sinus tach heart rate 135, normotensive with a blood pressure 134/85. Subjective: 03/21: Last evening, patient's second troponin level greater than 40, central line and arterial line placed patient was placed initially on heparin and Phenylephrine infusion. Dr. Pompa discussed case with Dr. Martell possible repeat of echo today as RV was not well visualized on initial echo yesterday. Weaning of sedation yesterday afternoon patient awake responding to commands, then placed on sedation for ventilator synchrony. During the night the patient became hypoglycemic and received an amp of D50, D5W was started. Noted liver enzymes elevated possibly secondary to shock liver, am labs pending. Dietary consult initiated for initiation of tube feeds today. The patient was pancultured yesterday and empiric antibiotics was initiated. He continues to have elevations in temperature WBC count slightly trending down, ID has been consulted. This a.m. the patient was noted to have moderate thrombocytopenia with platelet count diminished HIT panel, fibrinogen and d-dimer pending. Heparin infusion was discontinued. Early this a.m. the patient was noted to have a metabolic acidosis patient receiving 2 A of bicarb repeat ABG pending. Lactate level downtrending. Repeat troponin pending. 03/22: in extremis and refractory shock this morning. pH < 6.9. lactate 19. on multiple vasopressors. fulminant liver failure. DIC. CK continues to rise. discussed case with Dr. Diane and starting emergent IHD transitioning to CVVHD. CVP 10-13, giving additional ivf in the form of albumin and blood products. arterial line no longer functioning accurately and required emergent femoral arterial line placement. all organ systems worse. I performed bedside critical care ultrasonography which demonstrated grossly preserved LV function, no pericardial effusion. RV grossly functioning, although poorly visualized. unable to visualize IVC. compared echo to formal echo done 03/21, and no significant change noted. Objective Vital Signs Date Time Temp Pulse Resp B/P (MAP) Pulse Ox O2 Delivery O2 Flow Rate FiO2 03/22/18 06:11 105 138/53 03/22/18 04:15 100 03/22/18 04:00 98.8 26 90 03/20/18 09:30 Auto-Vent Intake and Output 03/22/18 03/22/18 03/23/18 08:00 16:00 00:00 Intake Total 7409 ml Output Total 50 ml Balance 7359 ml Result Diagram: 03/22/18 0430 03/22/18 0430 Other Results Microbiology Date/Time Source Procedure Growth Status 03/21/18 08:50 Nasal Washing Influenza Types A,B Antigen (JIHAN) - Final NEGATIVE FOR FLU A AND B ANTIGEN.... Complete 03/20/18 15:15 Urine Catheterized Urine Legionella Antigen - Final PRESUMPTIVE NEGATIVE FOR LEGIONELLA P... Complete 03/20/18 15:15 Urine Catheterized Urine Streptococcus pneumoniae Antigen (M - Final PRESUMPTIVE NEGATIVE FOR STREPTOCOCCU... Complete Laboratory Tests Test 03/21/18 08:36 03/21/18 15:52 03/21/18 22:40 03/22/18 06:05 Blood Gas Puncture Site ART LINE ART LINE ART LINE ART LINE Blood Gas Patient Temperature 98.6 98.6 98.6 98.6 Blood Gas HCO3 20 mmol/L (22-26) 17 mmol/L (22-26) 12 mmol/L (22-26) 10 mmol/L (22-26) Blood Gas Base Excess -5.9 mmol/L (-2-2) -8.3 mmol/L (-2-2) -13.9 mmol/L (-2-2) -19.6 mmol/L (-2-2) Blood Gas Oxygen Saturation 97 % (90-100) 95 % (90-100) 97 % (90-100) 87 % ( 90-100) Arterial Blood pH 7.30 (7.380-7.420) 7.26 (7.380-7.420) 7.22 (7.380-7.420) 6.95 (7.380-7.420) Arterial Blood Partial Pressure CO2 41 mmHg (38-42) 40 mmHg (38-42) 32 mmHg (38-42) 49 mmHg (38-42) Arterial Blood Partial Pressure O2 135 mmHg (61-120) 104 mmHg (61-120) 237 mmHg (61-120) 75 mmHg (61-120) Arterial Blood Oxygen Content 20.3 Vol % (12.0-20.0) 19.1 Vol % (12.0-20.0) 16.6 Vol % (12.0-20.0) 15.0 Vol % (12.0-20.0) Arterial Blood Carboxyhemoglobin 0.2 % (0-4) 0.2 % (0-4) 0.2 % (0-4) 0.0 % (0-4) Arterial Blood Methemoglobin 1.6 % (0-2) 1.6 % (0-2) 1.7 % (0-2) 1.7 % (0-2) Blood Gas Hemoglobin 14.8 G/DL (12.0-16.0) 14.3 G/DL (12.0-16.0) 11.8 G/DL (12.0-16.0) 12.3 G/DL (12.0-16.0) Oxygen Delivery Device VENTILATOR VENTILATOR VENTILATOR VENTILATOR Blood Gas Ventilator Setting 20/500/PEEP8 PRVC/AC/500/ PRVC/AC/22/500 PRVC/ AC Blood Gas Inspired Oxygen 50 % 50 % 100 % 100 % Imaging Last Impressions Chest X-Ray 03/21/18 0600 Signed Impressions: Service Date/Time: Wednesday, March 21, 2018 03:58 - CONCLUSION: 1. Cardiomegaly. Bilateral mostly basilar airspace disease similar to March 20. Support apparatus in good position. Da Kay MD Head CT 03/20/18 0000 Signed Impressions: Service Date/Time: Tuesday, March 20, 2018 10:57 - CONCLUSION: Normal examination. Per Barakat MD CT Angiography 03/20/18 0000 Signed Impressions: Service Date/Time: Tuesday, March 20, 2018 11:04 - CONCLUSION: 1. No pulmonary embolus. 2. Fairly extensive dependent areas of consolidation in both hemithoraces. 3. Innumerable ground glass nodular densities in the aerated portions of the lung most prominent in the apices. Findings are nonspecific but could represent alveolar hemorrhage or septic emboli. Dexter Benitez MD Last Impressions Head CT 03/20/18 Signed Impressions: Service Date/Time: Tuesday, March 20, 2018 10:57 - CONCLUSION: Normal examination. Per Barakat MD Chest X-Ray 03/20/18 Signed Impressions: Service Date/Time: Tuesday, March 20, 2018 09:33 - CONCLUSION: Patchy left basilar airspace disease. Endotracheal tube placement. Per Barakat MD CT Angiography 03/20/18 Signed Impressions: Service Date/Time: Tuesday, March 20, 2018 11:04 - CONCLUSION: 1. No pulmonary embolus. 2. Fairly extensive dependent areas of consolidation in both hemithoraces. 3. Innumerable ground glass nodular densities in the aerated portions of the lung most prominent in the apices. Findings are nonspecific but could represent alveolar hemorrhage or septic emboli. Dexter Benitez MD Objective Remarks GENERAL: Young male, lying in bed, intubated, critically ill, unresponsive HEENT: Normocephalic. Atraumatic. Pupils equal, round, reactive, conjugate. Mucous membranes are moist NECK: Trachea is midline. There is no JVD. Left sided central venous catheter in place, site clean dry and intact. CHEST: Equal chest rise. PRVC. PEEP of 8. FiO2 100%. Peak pressures 26. SPO2 89% CARDIOVASCULAR: Tachycardic rate, regular rhythm. Appears sinus by telemetry. On telemetry, noted ST depressions which are unchanged from prior EKGs. ABDOMEN: Obese, soft, nontender, nondistended. No guarding. MUSCULOSKELETAL: Pulses 2+. No peripheral edema. Bilateral lower extremities have grossly soft compartments in the thighs and calves bilaterally. NEUROLOGICAL: RASS -2. Sedated. Intubated. A/P Problem List: (1) Aspiration of gastric contents ICD Code: T17.910A - Gastric contents in respiratory tract, part unspecified causing asphyxiation, initial encounter Status: Acute (2) Syncope ICD Code: R55 - Syncope and collapse Status: Acute (3) Cardiac arrest ICD Code: I46.9 - Cardiac arrest, cause unspecified (4) TK (acute kidney injury) ICD Code: N17.9 - Acute kidney failure, unspecified Status: Acute (5) Metabolic acidemia ICD Code: E87.2 - Acidosis Status: Acute (6) Elevated lactic acid level ICD Code: R79.89 - Other specified abnormal findings of blood chemistry Status: Acute (7) Thrombocytopenia ICD Code: D69.6 - Thrombocytopenia, unspecified Status: Acute (8) Hypocalcemia ICD Code: E83.51 - Hypocalcemia Status: Acute (9) Bandemia without diagnosis of specific infection ICD Code: D72.825 - Bandemia Status: Acute (10) Leukocytosis ICD Code: D72.829 - Elevated white blood cell count, unspecified Status: Acute Assessment and Plan Assessment: 27yM with acute severe rhabdomyolysis and associated multiorgan system failure. in extremis. emergent IHD. unlikely to survive given degree of organ damage present, including fulminant liver failure, kidney failure, refractory shock, acidosis. very critically ill. supportive care. I have discussed the care at length with all consultants as well as the family. Plan by systems: Neurologic: Acute metabolic encephalopathy Neuro checks per ICU protocol midazolam and fentanyl infusion to maintain ventilator synchrony 03/20 urine drug screen- negative Daily sedation vacation send tylenol level (and re-send from admission) Respiratory: Acute hypoxic and hypercarbic respiratory failure Multilobar pneumonia Maintain O2 sat greater than 92% CT Angio chest- No pulmonary embolus. Fairly extensive dependent areas of consolidation in both hemithoraces. Innumerable ground glass nodular densities in the aerated portions of the lung most prominent in the apices. Findings are nonspecific but could represent alveolar hemorrhage or septic emboli. Duo nebs every 6 hours scheduled and every 2 hours as needed Ventilator bundle no SBT today change TV to 600, RR to 30, PEEP to 6. frequent abg. Cardiovascular: S/P cardiac arrest Mixed Shock: components of distributive shock, cardiogenic shock NSTEMI: likely type II secondary to demand and s/p cardiac arrest. Cardiology following- Dr. Pompa 03/20 emergent cardiac catheterization- no occlusive coronary artery disease 03/20 Echo-technically difficult study. The left ventricular systolic function is normal with an estimated ejection fraction in the range of 65-70%. Right atrium and right ventricle not well visualized. on phenylephrine, vasopressin, norepinephrine. goal map > 65 mmHg. may require epinephrine, though CI is 5.5 by pulse contour analysis. Continue Flowtrack monitoring Troponin remains > 40 Renal: TK requiring emergent renal replacement therapy Anuria Severe Acute Rhabdomyolysis Maintain Reed emergent IHD followed by CRRT frequent labs -- Strict I/Os FEN/GI: Shock liver Acute fulminant liver failure Lactic acidosis: severe Metabolic acidosis Hypocalcemia: severe Rhabdomyolysis Hyperkalemia Monitor CMP nephrology consulted- Dr Diane AST/ALT > 10,000 CK > 150,000 continue bicarb drip emergent CRRT. hold tube feeds given shock. consult GI to assist with fulminant liver failure. Heme/ID: Persistent leukocytosis thrombocytopenia DIC Coagulopathy secondary to acute liver failure Hypofibrinogenemia Febrile illness Monitor CBC Follow-up blood ,urine, sputum culture Legionella, strep pneumococcal-negative Obtain Influenza Antigen Obtain HIT Panel 4t score low probability for HIT more likely to be consumptive process. trend coags, fibrinogen ID Consulted-Dr. Pierce Endocrine: Hypoglycemia accuchecks q2h start d10w @ 42cc/hr. Msk: No evidence of compartment syndrome-continue to monitor in the setting of rhabdomyolysis PT evaluation and treat -functional maintenance Prophylaxis: GI Prophylaxis Famotidine IV DVT Prophylaxis -- SCDs Heparin on hold 2/2 coagulopathy Lines: Central line 03/20 left radial [place] 03/20 right femoral vascath 03/20 left femoral art line 03/21 Dispo: remain in ICU. very critically ill. my billing statement This patient remains critically ill with one or more organ systems which are or may become a threat to life. I have spent in excess of 107 minutes discontinuously in the care and management of this patient. This time is exclusive of procedures, and includes, but is not limited to, evaluation of the patient, review of the medical record, discussions with family, consultants, nursing staff, or respiratory therapy, and documentation in the medical record. Problem Qualifiers (1) Syncope: Qualified Codes: R55 - Syncope and collapse (2) Leukocytosis: Qualified Codes: D72.825 - Bandemia Johnnie Spivey MD March 22, 2018 08:15
[2018-03-22 08:24] LABS: PHOSPHORUS 9.7 MG/DL (2.5-4.9)
[2018-03-22 08:41] LABS: CREATININE, RANDOM URINE 70.1 MG/DL
--- NOTE | 2018-03-22 08:53 | PD.CARD.PN ---
Subjective Subjective Remarks Currently requiring more pressor support today. Has been started on hemodialysis, and planning for CRRT. (Ernie Sykes) Objective Medications Current Medications Medications (Trade) Dose Ordered Sig/Sarah Route Start Time Stop Time Status Last Admin (NS Flush) 2 ml UNSCH PRN IV FLUSH 03/20/18 11:45 (NS Flush) 2 ml BID IV FLUSH 03/20/18 21:00 03/21/18 21:00 (Tylenol) 650 mg Q6H PRN PO 03/20/18 11:45 03/21/18 00:26 (Tears Naturale Opth Soln) 1 drop TID EACH EYE 03/20/18 13:00 03/21/18 18:16 (Zofran Odt) 4 mg Q6H PRN PO 03/20/18 11:45 (Duoneb Neb) 1 ampule Q6HR NEB INH 03/20/18 16:00 03/21/18 21:52 (Duoneb Neb) 1 ampule Q2HR NEB PRN INH 03/20/18 11:45 ([facility] Nursing Information) 1 Q361D XX 03/20/18 11:45 (Chlorhexidine 2% Cloth) 3 pack Taper DAILY@04 TOP 03/21/18 04:00 03/17/19 03:59 03/22/18 02:00 (Chlorhexidine 2% Cloth) 3 pack UNSCH PRN TOP 03/20/18 11:45 (Ludy-Colace) 1 tab BID PO 03/20/18 21:00 03/21/18 09:58 (Milk Of Magnesia Liq) 30 ml Q12H PRN PO 03/20/18 11:45 (Senokot) 17.2 mg Q12H PRN PO 03/20/18 11:45 (Dulcolax Supp) 10 mg DAILY PRN RECTAL 03/20/18 11:45 (Lactulose Liq) 30 ml DAILY PRN PO 03/20/18 11:45 (Peridex 0.12% Liq) 15 ml BID@08,20 MT 03/20/18 20:00 03/22/18 08:09 (D50w (Vial) Inj) 50 ml UNSCH PRN IV PUSH 03/20/18 12:00 03/21/18 23:07 (Glucagon Inj) 1 mg UNSCH PRN OTHER 03/20/18 12:00 (NovoLIN R SUPPLEMENTAL SCALE) 1 ACHS SLIDING SCALE SQ 03/20/18 12:00 Fentanyl Citrate 250 ml @ 5 mls/hr TITRATE PRN IV 03/20/18 15:00 03/22/18 05:34 Azithromycin 500 mg/Sodium Chloride 250 ml @ 250 mls/hr Q24H IV 03/20/18 16:00 03/21/18 16:39 Pharmacy Profile Note 0 ml @ 0 mls/hr UNSCH OTHER 03/20/18 15:15 Midazolam HCl 50 ml @ 2 mls/hr TITRATE PRN IV 03/20/18 15:45 03/22/18 06:00 Phenylephrine HCl 40 mg/Dextrose 500 ml @ 30 mls/hr TITRATE PRN IV 03/20/18 20:00 03/22/18 06:11 (Aspirin Chew) 81 mg DAILY CHEW 03/20/18 20:45 Future Hold 03/20/18 22:52 Heparin Sodium/ Dextrose 250 ml @ 10 mls/hr TITRATE PRN IV 03/20/18 20:45 Future Hold 03/20/18 22:56 Dextrose/Sodium Chloride 1,000 ml @ 84 mls/hr [id number] IV 03/21/18 05:45 03/21/18 06:13 Sodium Bicarbonate 75 meq/Sodium Chloride 1,075 ml @ 150 mls/hr Q7H10M IV 03/21/18 08:00 03/22/18 05:59 Doxycycline Hyclate 100 mg/ Sodium Chloride 100 ml @ 100 mls/hr Q12H IV 03/21/18 14:00 03/22/18 02:00 (Pepcid Inj) 10 mg Q12HR IV PUSH 03/21/18 21:00 03/21/18 21:00 Norepinephrine Bitartrate 250 ml @ 7.5 mls/hr TITRATE PRN IV 03/21/18 18:15 03/22/18 05:59 (Brethine Inj) 1 mg UNSCH PRN SQ 03/21/18 18:15 Aztreonam 500 mg/ Sodium Chloride 100 ml @ 200 mls/hr Q6H IV 03/21/18 23:00 03/22/18 05:00 Metronidazole 100 ml @ 100 mls/hr Q8H IV 03/21/18 22:00 03/22/18 06:00 Micafungin Sodium 150 mg/Sodium Chloride 100 ml @ 100 mls/hr Q24H IV 03/22/18 00:00 03/21/18 23:49 Vasopressin 40 units/Dextrose 100 ml @ 1.5 mls/hr Q24H IV 03/22/18 03:34 03/22/18 03:45 Epinephrine HCl 2 mg/Dextrose 252 ml @ 22.68 mls/ hr TITRATE PRN IV 03/22/18 03:45 Acetylcysteine 21842 mg/Dextrose 275 ml @ 200 mls/hr STAT ONCE IV 03/22/18 09:00 03/22/18 10:22 Acetylcysteine 5000 mg/Dextrose 525 ml @ 125 mls/hr ONCE ONCE IV 03/22/18 10:30 03/22/18 14:41 Acetylcysteine 02579 mg/Dextrose 1,050 ml @ 62.5 mls/hr ONCE ONCE IV 03/22/18 14:30 03/23/18 07:17 Sodium Chloride 250 ml @ 15 mls/hr ONCE ONCE IV 03/22/18 08:00 03/23/18 00:39 Dextrose 1,000 ml @ 42 mls/hr [id number] IV 03/22/18 08:15 Vital Signs / I&O Vital Signs Date Time Temp Pulse Resp B/P (MAP) Pulse Ox O2 Delivery O2 Flow Rate FiO2 03/22/18 08:26 100 03/22/18 08:24 108 03/22/18 08:21 99.0 113 25 112/47 (68) 98 03/22/18 07:30 93 100 03/22/18 06:11 105 138/53 03/22/18 05:59 107 137/52 03/22/18 04:15 100 03/22/18 04:00 105 03/22/18 04:00 98.8 107 26 139/54 (82) 90 03/22/18 03:50 76 88/41 03/22/18 03:45 88 100 03/22/18 03:45 80 65/28 03/22/18 02:25 112 107/38 03/22/18 01:00 100 100 03/22/18 00:00 99.1 116 38 106/47 (66) 92 03/22/18 00:00 116 03/21/18 23:30 96 70 18 23:00 80 18 22:00 100 03/21/18 21:30 90 03/21/18 21:15 90 100 03/21/18 21:00 70 18 21:00 121 117/46 03/21/18 20:00 50 03/21/18 20:00 99.9 108 23 105/64 (78) 95 102/45 (64) 03/21/18 20:00 108 03/21/18 17:36 99.6 108 20 88/42 98 03/21/18 17:19 107 20 90/41 97 18 17:18 99.0 18 16:35 99.0 104 20 89/39 95 18 16:35 97 50 18 16:28 99.0 106 20 87/38 98 18 16:03 50 18 15:07 106 03/21/18 15:06 99.0 104 20 85/42 (56) 98 03/21/18 13:04 98 50 03/21/18 12:03 50 03/21/18 11:18 98.6 96 20 126/58 (80) 98 03/21/18 11:16 96 I/O 03/21/18 03/21/18 03/21/18 03/22/18 03/22/18 03/22/18 07:00 15:00 23:00 07:00 15:00 23:00 Intake Total 1219.3 ml 1572 ml 4285 ml 9250 ml 359 ml Output Total 1450 ml 190 ml 50 ml Balance -230.7 ml 1572 ml 4095 ml 9200 ml 359 ml Intake Oral 0 ml IV Total 1219.3 ml 1572 ml 4021 ml 7900 ml Packed Cells 800 ml FFP 349 ml Platelets 200 ml Cryoprecipitate 234 ml Blood Product IV Normal Saline Flush 30 ml 350 ml 10 ml Output Urine Total 1400 ml 190 ml 0 ml Gastric Drainage Total 50 ml 0 ml 50 ml # Bowel Movements 0 0 0 Physical Exam GENERAL: Intubated, sedated, mechanically ventilated. NECK: No carotid bruits. No JVD. CARDIOVASCULAR: Regular rate and rhythm. No murmur appreciated. RESPIRATORY: Coarse breath sounds especially in the bases. MUSCULOSKELETAL: Extremities warm.. No edema. Laboratory Laboratory Tests Test 03/21/18 09:40 03/21/18 12:00 03/21/18 15:23 03/21/18 15:52 D-Dimer Quantitative (PE/DVT) GREATER THAN 35.20 MG/L FEU Urine Color GIOVANNY Urine Turbidity HAZY Urine pH 6.0 Urine Specific [place] 1.019 Urine Protein 100 mg/dL Urine Glucose (UA) 70 mg/dL Urine Ketones NEG mg/dL Urine Occult Blood LARGE Urine Nitrite NEG Urine Bilirubin NEGATIVE Urine Urobilinogen LESS THAN 2.0 MG/DL Urine Leukocyte Esterase NEGATIVE Urine RBC 5 /hpf Urine WBC 8 /hpf Urine Bacteria RARE /hpf Microscopic Urinalysis Comment CATH-CULTURE IND Urine Eosinophils NONE SEEN /HPF Urine Random Creatinine 70.1 MG/DL Urine Random Sodium 87 MEQ/L Lactic Acid Level 5.0 mmol/L Procalcitonin 3.10 ng/mL Blood Gas Puncture Site ART LINE Blood Gas Patient Temperature 98.6 Blood Gas HCO3 17 mmol/L Blood Gas Base Excess -8.3 mmol/L Blood Gas Oxygen Saturation 95 % Arterial Blood pH 7.26 Arterial Blood Partial Pressure CO2 40 mmHg Arterial Blood Partial Pressure O2 104 mmHg Arterial Blood Oxygen Content 19.1 Vol % Arterial Blood Carboxyhemoglobin 0.2 % Arterial Blood Methemoglobin 1.6 % Blood Gas Hemoglobin 14.3 G/DL Oxygen Delivery Device VENTILATOR Blood Gas Ventilator Setting PRVC/AC/500/ Blood Gas Inspired Oxygen 50 % Test 03/21/18 20:10 03/21/18 22:40 03/22/18 04:30 03/22/18 06:05 White Blood Count 21.8 TH/MM3 27.1 TH/MM3 Red Blood Count 4.15 MIL/MM3 4.14 MIL/MM3 Hemoglobin 12.6 GM/DL 12.5 GM/DL Hematocrit 37.5 % 39.4 % Mean Corpuscular Volume 90.5 FL 95.3 FL Mean Corpuscular Hemoglobin 30.5 PG 30.3 PG Mean Corpuscular Hemoglobin Concent 33.7 % 31.8 % Red Cell Distribution Width 14.3 % 14.9 % Platelet Count 28 TH/MM3 74 TH/MM3 Mean Platelet Volume 9.3 FL 8.7 FL Neutrophils (%) (Auto) 96.4 % 94.6 % Lymphocytes (%) (Auto) 1.9 % 3.7 % Monocytes (%) (Auto) 1.4 % 1.5 % Eosinophils (%) (Auto) 0.1 % 0.0 % Basophils (%) (Auto) 0.2 % 0.2 % Neutrophils # (Auto) 21.1 TH/MM3 25.7 TH/MM3 Lymphocytes # (Auto) 0.4 TH/MM3 1.0 TH/MM3 Monocytes # (Auto) 0.3 TH/MM3 0.4 TH/MM3 Eosinophils # (Auto) 0.0 TH/MM3 0.0 TH/MM3 Basophils # (Auto) 0.0 TH/MM3 0.1 TH/MM3 CBC Comment AUTO DIFF AUTO DIFF Differential Total Cells Counted 100 Neutrophils % (Manual) 79 % Band Neutrophils % 16 % Lymphocytes % 2 % Monocytes % 2 % Basophils % 1 % Neutrophils # (Manual) 20.7 TH/MM3 Nucleated Red Blood Cells 1 /100 WBC Differential Comment FINAL DIFF MANUAL Platelet Estimate LOW Platelet Morphology Comment NORMAL Ovalocytes 1+ Prothrombin Time 33.7 SEC 37.8 SEC Prothromb Time International Ratio 3.3 RATIO 3.8 RATIO Nasal Screen MRSA (PCR) MRSA NOT DETECTED Blood Urea Nitrogen 44 MG/DL 40 MG/DL Creatinine 6.37 MG/DL 6.52 MG/DL Random Glucose 67 MG/DL 76 MG/DL Total Protein 5.2 GM/DL 5.0 GM/DL Albumin 2.6 GM/DL 2.3 GM/DL Calcium Level 6.1 MG/DL 6.1 MG/DL Alkaline Phosphatase 99 U/L 112 U/L Aspartate Amino Transf (AST/SGOT) 8028 U/L GREATER THAN 89581 U/L Alanine Aminotransferase (ALT/SGPT) 4813 U/L GREATER THAN 39189 U/L Total Bilirubin 2.5 MG/DL 2.6 MG/DL Sodium Level 142 MEQ/L 145 MEQ/L Potassium Level 5.7 MEQ/L 6.0 MEQ/L Chloride Level 107 MEQ/L 103 MEQ/L Carbon Dioxide Level 17.8 MEQ/L 12.1 MEQ/L Anion Gap 17 MEQ/L 30 MEQ/L Estimat Glomerular Filtration Rate 11 ML/MIN 10 ML/MIN Lactic Acid Level 8.1 mmol/L 19.7 mmol/L Protein Corrected Calcium 7.0 MG/DL 7.1 MG/DL Total Creatine Kinase 381810 U/L Creatine Kinase MB 738.3 NG/ML Creatine Kinase MB % 0.5 % Blood Gas Puncture Site ART LINE ART LINE Blood Gas Patient Temperature 98.6 98.6 Blood Gas HCO3 12 mmol/L 10 mmol/L Blood Gas Base Excess -13.9 mmol/L -19.6 mmol/L Blood Gas Oxygen Saturation 97 % 87 % Arterial Blood pH 7.22 6.95 Arterial Blood Partial Pressure CO2 32 mmHg 49 mmHg Arterial Blood Partial Pressure O2 237 mmHg 75 mmHg Arterial Blood Oxygen Content 16.6 Vol % 15.0 Vol % Arterial Blood Carboxyhemoglobin 0.2 % 0.0 % Arterial Blood Methemoglobin 1.7 % 1.7 % Blood Gas Hemoglobin 11.8 G/DL 12.3 G/DL Oxygen Delivery Device VENTILATOR VENTILATOR Blood Gas Ventilator Setting PRVC/AC/22/500 PRVC/AC Blood Gas Inspired Oxygen 100 % 100 % Activated Partial Thromboplast Time 44.2 SEC Fibrinogen 114 mg/dL Phosphorus Level 9.7 MG/DL Magnesium Level 1.8 MG/DL Troponin I GREATER THAN 40.00 NG/ML Random Vancomycin Level 18.1 COMMENT Test 03/22/18 07:50 Imaging Last 24 hours Impressions Chest X-Ray 03/22/18 0600 Signed Impressions: Service Date/Time: Thursday, March 22, 2018 05:24 - CONCLUSION: 1. Slight increase in bilateral airspace disease over the last day. Support apparatus unchanged. Da Kay MD Abdomen/Pelvis CT 03/21/18 1639 Signed Impressions: Service Date/Time: Thursday, March 22, 2018 01:10 - CONCLUSION: 1. Diffuse mild mural thickening of the colon most characteristic of a mild colitis. 2. Diffuse fatty infiltration of the liver. 3. Residual contrast in kidneys from contrast injection performed yesterday characteristic of diminished renal function. 4. Mild anasarca. Dense consolidation at the lung bases with trace pleural fluid. 5. NG in stomach. Reed catheter in bladder. Right femoral line present. 1. Da Kay MD (Ernie Sykes) Assessment and Plan Assessment and Plan cardiac arrest - unclear exactly what happened at the time of his event. Suspect arrhythmia induced. Will need electrophysiologic study and probable ICD. will get EP involved once he recovers clinically. Will need to rule out channelopathies, hypertrophic cardiomyopathy, ARVD, [place] [address]. trop > 40. no obstructive CAD. Aorta no dissection. CTA - no PE. acute liver and kidney injury - suspect shock liver and kidney. possible anoxic encephalopathy all due to hypoperfusion and cardiac arrest. TTE - limited but no regional wall motion abnormalities and EF appears preserved. Ideally, would like to proceed with WANDA for better visualization, but INR 3.0 and platelets 70 (receiving FFP). continue supportive care Discussed Condition With RN, Dr. Pompa (Ernie Sykes) Assessment and Plan multiorgan failure cardiac arrest now on CVVHD hypotensive on pressor support. SVR low. CI 5-6. cont epi gtt prognosis guarded discussed with family at length continue supportive care FU limited 2d echo for EF (Orion Pompa MD) Ernie Sykes March 22, 2018 08:53 Orion Pompa MD March 22, 2018 13:13
[2018-03-22] MEDS: DOCUSATE SODIUM 50 MG/SENNA 8.6 MG TAB PO SCH ×2 (09:00→21:45)
[2018-03-22] MEDS: SODIUM CHLORIDE 0.9% FLUSH 10 ML FLUSH IV FLUSH SCH ×2 (09:00→21:45)
[2018-03-22] MEDS: FAMOTIDINE 20 MG/2 ML VIAL IV PUSH SCH ×2 (09:00→21:45)
[2018-03-22] MEDS ORDERED: ACETYLCYSTEINE INJ 15,000 MG in DEXTROSE 5% IN WATER INJ 200 ML IV ONE ×2 (09:00)
[2018-03-22] MEDS: ARTIFICIAL TEARS OPTH SOLN 15 ML BTL EACH EYE SCH ×4 (09:00→18:04)
--- NOTE | 2018-03-22 09:10 | HHI.NPPN ---
Subjective Additional Remarks Patient intubated, sedated. Seen on HD, remains on pressors. Objective Data Data 03/22/18 03/23/18 19:00 07:00 Intake Total 359 ml Balance 359 ml FFP 349 ml Blood Product IV Normal Saline Flush 10 ml Vital Signs Date Time Temp Pulse Resp B/P (MAP) Pulse Ox O2 Delivery O2 Flow Rate FiO2 03/22/18 08:26 100 03/22/18 08:24 108 03/22/18 08:21 99.0 113 25 112/47 (68) 98 03/22/18 07:30 93 100 03/22/18 06:11 105 138/53 03/22/18 05:59 107 137/52 03/22/18 04:15 100 03/22/18 04:00 105 03/22/18 04:00 98.8 107 26 139/54 (82) 90 03/22/18 03:50 76 88/41 03/22/18 03:45 88 100 03/22/18 03:45 80 65/28 03/22/18 02:25 112 107/38 03/22/18 01:00 100 100 03/22/18 00:00 99.1 116 38 106/47 (66) 92 03/22/18 00:00 116 03/21/18 23:30 96 70 03/21/18 23:00 80 03/21/18 22:00 100 03/21/18 21:30 90 03/21/18 21:15 90 100 03/21/18 21:00 70 03/21/18 21:00 121 117/46 03/21/18 20:00 50 03/21/18 20:00 99.9 108 23 105/64 (78) 95 102/45 (64) 03/21/18 20:00 108 03/21/18 17:36 99.6 108 20 88/42 98 03/21/18 17:19 107 20 90/41 97 03/21/18 17:18 99.0 03/21/18 16:35 99.0 104 20 89/39 95 03/21/18 16:35 97 50 03/21/18 16:28 99.0 106 20 87/38 98 03/21/18 16:03 50 03/21/18 15:07 106 03/21/18 15:06 99.0 104 20 85/42 (56) 98 03/21/18 13:04 98 50 03/21/18 12:03 50 03/21/18 11:18 98.6 96 20 126/58 (80) 98 03/21/18 11:16 96 -: 03/22/18 0430 03/22/18 0430 Microbiology 03/21/18 Urine Culture, Received Pending Physical Exam General Appearance: No Acute Distress Neck Neck Exam: Neck Supple Pulmonary Resp Exam: Diminished Breath Sounds Cardiology CV Exam: Regular Gastrointestinal/Abdomen GI Exam: Soft Musculoskeletal MS Exam: Joints Intact Integumentary Skin Exam: Dry, Intact Extremeties Extremities Exam: Trace Edema Neurologic Neuro Exam: Sedated Assessment/Plan Problem List: (1) TK (acute kidney injury) ICD Codes: N17.9 - Acute kidney failure, unspecified Status: Acute Plan: 27 yo with no significant past medical history - [employer] TK secondary to rhabdomyolysis. Post cardiac arrest, code, contrast exposure with cardiac arrest and CT angiogram 03/20 Poor prognosis at this time, apparent ATN, shock liver, coagulopathy, and lactic acid 19.7 CT abdomen last night negative for any ischemic bowel. Continues on multiple pressor support. Initially treated with aggressive IVFs K+ 6, Anuric now with ATN: HD started earlier this morning, seen on HD and tolerating 1K bath no fluid removal. Will change house attendant to CRRT today with 3K bath, net UF 50cc/hour. Adjust K as needed with CRRT, UF as tolerated. Dialysis may help with myoglobin clearance; however ongoing aggressive underlying rhabdomyolysis. CK levels are still trending higher post admission yesterday. Will continue supportive care with CRRT, monitor for any improvement. (2) Metabolic acidemia ICD Codes: E87.2 - Acidosis Status: Acute Plan: Acidosis secondary to TK, shock. Initially treated with aggressive IVFs with HCO3. Anuric now, on dialysis - continue to monitor. Lactic acid level 19 now, CT abdomen negative for ischemic bowel. (3) Cardiac arrest ICD Codes: I46.9 - Cardiac arrest, cause unspecified Plan: The patient had a negative cardiac catheterization with apparent 65-75% ejection fraction. The patient was seen with cardiology. It is unclear if there is an electrophysiological etiology for his cardiac arrest. Continue to closely monitor him with cardiology. (4) Respiratory distress ICD Codes: R06.03 - Acute respiratory distress Status: Acute Plan: Respiratory failure. The patient is intubated at this time. Of note, a CT angiogram of the chest revealed findings of possible alveolar hemorrhage versus septic emboli. Continue to closely monitor. ID following. UF as tolerated with CRRT, will start at 50cc/hour net UF (5) Thrombocytopenia ICD Codes: D69.6 - Thrombocytopenia, unspecified Status: Acute Plan: Secondary to shock, shock liver. No anticoagulation with HD or CRRT later today. Continue to monitor. Parish Diane MD March 22, 2018 09:10
[2018-03-22] MEDS ORDERED: KCL/AQUEOUS SOLN Dialysate additive PRN (09:45)
[2018-03-22 10:20] LABS: BANDS 15 % (0-6); CORRECTED NUCLEATED RBC 4 /100 WBC (0-0); LYMPHOCYTES 4 % (9-44); MONOCYTES 1 % (0-8); MYELOCYTES 1 % (0-0); NEUTROPHIL # MANUAL DIFF 25.7 TH/MM3 (1.8-7.7); NUCLEATED RED BLOOD CELL 4 (0-0); POLYS (SEG NEUTROPHILS) 79 % (16-70); TOXIC VACUOLATION PRESENT (NONE SEEN)
[2018-03-22 10:21] LABS: BURR CELLS 1+ (NORMAL)
[2018-03-22] MEDS ORDERED: ACETYLCYSTEINE INJ 5,000 MG in DEXTROSE 5% IN WATE 500 ML INJ 500 ML IV ONE ×2 (10:30)
[2018-03-22] MEDS ORDERED: CALCIUM CHLORIDE IV ONE (11:00)
[2018-03-22] MEDS ORDERED: SODIUM CHLOR 0.9% IV ONE (11:00)
[2018-03-22] MEDS ORDERED: SODIUM CHLOR 0.9% 1000 ML INJ 1,000 ML OTHER PRN ×2 (11:56)
[2018-03-22] MEDS ORDERED: ALBUMIN 25% INJ 100 ML IV PRN (12:00)
[2018-03-22] MEDS ORDERED: cloNIDine HCL 0.1 MG TAB PO PRN (12:00)
[2018-03-22] MEDS ORDERED: diphenhydrAMINE HCL 25 MG CAP PO PRN (12:00)
[2018-03-22] MEDS ORDERED: GELATIN 12 MM/7 MM FOAM TOP PRN (12:00)
[2018-03-22] MEDS ORDERED: ACETAMINOPHEN 325 MG TAB PO PRN (12:00)
[2018-03-22] MEDS ORDERED: HEPARIN SODIUM - IV 10,000 UNITS/10 ML VIAL PRN (12:00)
[2018-03-22] MEDS ORDERED: ONDANSETRON ODT 4 MG TAB PO PRN (12:00)
[2018-03-22] MEDS ORDERED: GENTAMICIN SULFATE 20 MG/2 ML VIAL OTHER PRN (12:00)
[2018-03-22] MEDS ORDERED: MANNITOL 12.5 GM/50 ML VIAL IV PRN (12:00)
[2018-03-22] MEDS ORDERED: NITROGLYCERIN 0.4 MG SL 25 TABS/BTL SL PRN (12:00)
[2018-03-22] MEDS ORDERED: HEPARIN SODIUM - IV 10,000 UNITS/10 ML VIAL IV FLUSH PRN (12:00)
[2018-03-22] MEDS ORDERED: SODIUM CHLORIDE 0.9% FLUSH 10 ML FLUSH IV FLUSH PRN (12:00)
[2018-03-22] MEDS ORDERED: SODIUM BICARBONATE 8.4% INJ 50 MEQ/50 ML SYR ONE (12:14)
--- NOTE | 2018-03-22 12:22 | PD.CONS ---
HPI History of Present Illness This is a 27 year old with hx of obesity who was exercising at the [employer] and per reports became lightheaded and had a syncopal episode who developed STEMI and cardiac catheterization emergently was performed. no obstructive coronary artery disease was visualized. CT angiography was performed, no PE but raised possibility for alveolar hemorrhage or septic emboli. CT of A/P diffused mild mural thickening of the colon suggesting mild colitis. fatty liver, mild anasarca, pleural fluid, NG in stomach. CT of head negative. Pt subsequently developed AKF, and liver failure. Currently receiving HD. GI consulted for fulminant liver failure. Labs showed lactic acidemia, metabolic acidosis, rhabdomyolysis. Pt by the door, denies significant past medical hx for pt, he drinks on occasions. (Ceci Herrera) PFSH Past Medical History None Past Surgical History None (Ceci Herrera) Coded Allergies: Penicillins (Verified Allergy, Severe, Anaphylaxis, 03/21/18) No Known Allergies (Verified Allergy, Unknown, 03/20/18) Medications Current Medications Medications (Trade) Dose Ordered Sig/Sarah Route Start Time Stop Time Status Last Admin (NS Flush) 2 ml UNSCH PRN IV FLUSH 03/20/18 11:45 (NS Flush) 2 ml BID IV FLUSH 03/20/18 21:00 03/22/18 09:00 (Tears Naturale Opth Soln) 1 drop TID EACH EYE 03/20/18 13:00 03/22/18 09:00 (Zofran Odt) 4 mg Q6H PRN PO 03/20/18 11:45 (Duoneb Neb) 1 ampule Q6HR NEB INH 03/20/18 16:00 03/22/18 09:51 (Duoneb Neb) 1 ampule Q2HR NEB PRN INH 03/20/18 11:45 ([facility] 1 Q361D XX 03/20/18 11:45 (Chlorhexidine 2% Cloth) 3 pack Taper DAILY@04 TOP 03/21/18 04:00 03/17/19 03:59 03/22/18 02:00 (Chlorhexidine 2% Cloth) 3 pack UNSCH PRN TOP 03/20/18 11:45 (Ludy-Colace) 1 tab BID PO 03/20/18 21:00 03/22/18 09:00 (Milk Of Magnesia Liq) 30 ml Q12H PRN PO 03/20/18 11:45 (Senokot) 17.2 mg Q12H PRN PO 03/20/18 11:45 (Dulcolax Supp) 10 mg DAILY PRN RECTAL 03/20/18 11:45 (Lactulose Liq) 30 ml DAILY PRN PO 03/20/18 11:45 (Peridex 0.12% Liq) 15 ml BID@08,20 MT 03/20/18 20:00 03/22/18 08:09 (D50w (Vial) Inj) 50 ml UNSCH PRN IV PUSH 03/20/18 12:00 03/21/18 23:07 (Glucagon Inj) 1 mg UNSCH PRN OTHER 03/20/18 12:00 (NovoLIN R SUPPLEMENTAL SCALE) 1 ACHS SLIDING SCALE SQ 03/20/18 12:00 Fentanyl Citrate 250 ml @ 5 mls/hr TITRATE PRN IV 03/20/18 15:00 03/22/18 05:34 Pharmacy Profile Note 0 ml @ 0 mls/hr UNSCH OTHER 03/20/18 15:15 Midazolam HCl 50 ml @ 2 mls/hr TITRATE PRN IV 03/20/18 15:45 03/22/18 06:00 Phenylephrine HCl 40 mg/Dextrose 500 ml @ 30 mls/hr TITRATE PRN IV 03/20/18 20:00 03/22/18 11:01 (Aspirin Chew) 81 mg DAILY CHEW 03/20/18 20:45 Future Hold 03/20/18 22:52 Heparin Sodium/ Dextrose 250 ml @ 10 mls/hr TITRATE PRN IV 03/20/18 20:45 Future Hold 03/20/18 22:56 Dextrose/Sodium Chloride 1,000 ml @ 84 mls/hr [id number] IV 03/21/18 05:45 03/21/18 06:13 Sodium Bicarbonate 75 meq/Sodium Chloride 1,075 ml @ 150 mls/hr Q7H10M IV 03/21/18 08:00 03/22/18 05:59 Doxycycline Hyclate 100 mg/ Sodium Chloride 100 ml @ 100 mls/hr Q12H IV 03/21/18 14:00 03/22/18 02:00 (Pepcid Inj) 10 mg Q12HR IV PUSH 03/21/18 21:00 03/22/18 09:00 Norepinephrine Bitartrate 250 ml @ 7.5 mls/hr TITRATE PRN IV 03/21/18 18:15 03/22/18 09:18 (Brethine Inj) 1 mg UNSCH PRN SQ 03/21/18 18:15 Aztreonam 500 mg/ Sodium Chloride 100 ml @ 200 mls/hr Q6H IV 03/21/18 23:00 03/22/18 11:13 Metronidazole 100 ml @ 100 mls/hr Q8H IV 03/21/18 22:00 03/22/18 06:00 Micafungin Sodium 150 mg/Sodium Chloride 100 ml @ 100 mls/hr Q24H IV 03/22/18 00:00 03/21/18 23:49 Vasopressin 40 units/Dextrose 100 ml @ 1.5 mls/hr Q24H IV 03/22/18 03:34 03/22/18 03:45 Epinephrine HCl 2 mg/Dextrose 252 ml @ 22.68 mls/ hr TITRATE PRN IV 03/22/18 03:45 Acetylcysteine 5000 mg/Dextrose 525 ml @ 125 mls/hr ONCE ONCE IV 03/22/18 10:30 03/22/18 14:41 03/22/18 10:03 Acetylcysteine 31124 mg/Dextrose 1,050 ml @ 62.5 mls/hr ONCE ONCE IV 03/22/18 14:30 03/23/18 07:17 Sodium Chloride 250 ml @ 15 mls/hr ONCE ONCE IV 03/22/18 08:00 03/23/18 00:39 03/22/18 08:59 Dextrose 1,000 ml @ 42 mls/hr [id number] IV 03/22/18 08:15 03/22/18 08:15 Sodium Chloride 1,000 ml @ 0 mls/hr UNSCH PRN OTHER 03/22/18 09:45 (KCl 40 Meq Premix Inj) Add 1 mEq/ Liter of Dialysate WITH DIALYSIS PRN .XX 03/22/18 09:45 Calcium Chloride 4 gm/Sodium Chloride 290 ml @ 17.5 mls/hr ONCE ONCE IV 03/22/18 11:00 03/23/18 03:34 03/22/18 11:14 Sodium Chloride 1,000 ml @ 0 mls/hr Q0M PRN OTHER 03/22/18 11:56 UNV (Heparin Inj) 8,000 units UNSCH PRN IV FLUSH 03/22/18 12:00 UNV Sodium Chloride 1,000 ml @ 200 mls/hr Q5H PRN IV 03/22/18 11:56 UNV Sodium Chloride 1,000 ml @ 0 mls/hr Q0M PRN OTHER 03/22/18 11:56 UNV (Mannitol Inj) 12.5 gm UNSCH PRN IV 03/22/18 12:00 UNV Albumin Human 100 ml @ 60 mls/hr UNSCH PRN IV 03/22/18 12:00 UNV (NS Flush) 5 ml UNSCH PRN IV FLUSH 03/22/18 12:00 UNV (Heparin Inj) UNSCH PRN .XX 03/22/18 12:00 UNV (Gentamicin Inj) 20 mg UNSCH PRN OTHER 03/22/18 12:00 UNV (Zofran Inj) 4 mg UNSCH PRN IV PUSH 03/22/18 12:00 UNV (Tylenol) 650 mg UNSCH PRN PO 03/22/18 12:00 UNV (Benadryl) 25 mg UNSCH PRN PO 03/22/18 12:00 UNV (Nitrostat Sl) 0.4 mg UNSCH PRN SL 03/22/18 12:00 UNV (Catapres) 0.1 mg UNSCH PRN PO 03/22/18 12:00 UNV (Gelfoam 12 Mm/7 Mm Top) 1 foam UNSCH PRN TOP 03/22/18 12:00 UNV Family History Non contributory Social History No alcohol No illicit drug use (Ceci Herrera) Review of Systems Unable to obtain, pt is intubated, some epistaxis noted by nurse (Ceci Herrera) GI Exam Vitals I&O Vital Signs Date Time Temp Pulse Resp B/P (MAP) Pulse Ox O2 Delivery O2 Flow Rate FiO2 03/22/18 11:05 98.0 103 28 107/43 (64) 90 03/22/18 11:04 103 03/22/18 10:08 98.9 03/22/18 09:52 95 90 5/20/18 09:37 98.9 03/22/18 09:26 98.9 106 30 114/48 95 20/18 09:13 98.9 106 30 100/35 95 18 08:26 100 03/22/18 08:24 108 2018 08:21 99.0 113 25 112/47 (68) 98 18 07:30 93 100 03/22/18 06:11 105 138/53 18 05:59 107 137/52 18 04:15 100 18 04:00 105 03/22/18 04:00 98.8 107 26 139/54 (82) 90 03/22/18 03:50 76 88/41 03/22/18 03:45 88 100 03/22/18 03:45 80 65/28 03/22/18 02:25 112 107/38 03/22/18 01:00 100 100 03/22/18 00:00 99.1 116 38 106/47 (66) 92 03/22/18 00:00 116 18 23:30 96 70 03/21/18 23:00 80 19/18 22:00 100 18 21:30 90 18 21:15 90 100 18 21:00 70 18 21:00 121 117/46 03/21/18 20:00 50 18 20:00 99.9 108 23 105/64 (78) 95 102/45 (64) 03/21/18 20:00 108 18 17:36 99.6 108 20 88/42 98 19/18 17:19 107 20 90/41 97 19/18 17:18 99.0 03/21/18 16:35 99.0 104 20 89/39 95 03/21/18 16:35 97 50 03/21/18 16:28 99.0 106 20 87/38 98 03/21/18 16:03 50 18 15:07 106 18 15:06 99.0 104 20 85/42 (56) 98 18 13:04 98 50 18 12:03 50 I/O 03/21/18 03/21/18 03/21/18 03/22/18 03/22/18 03/22/18 07:00 15:00 23:00 07:00 15:00 23:00 Intake Total 1219.3 ml 1572 ml 4285 ml 9250 ml 2626 ml Output Total 1450 ml 190 ml 50 ml 5 ml Balance -230.7 ml 1572 ml 4095 ml 9200 ml 2621 ml Intake Oral 0 ml IV Total 1219.3 ml 1572 ml 4021 ml 7900 ml 1550 ml Packed Cells 800 ml FFP 1026 ml Platelets 200 ml Cryoprecipitate 234 ml Blood Product IV Normal Saline Flush 30 ml 350 ml 50 ml Output Urine Total 1400 ml 190 ml 0 ml Gastric Drainage Total 50 ml 0 ml 50 ml Hemodialysis 5 ml # Bowel Movements 0 0 0 Imaging Last Impressions Chest X-Ray 03/22/18 0600 Signed Impressions: Service Date/Time: Thursday, March 22, 2018 05:24 - CONCLUSION: 1. Slight increase in bilateral airspace disease over the last day. Support apparatus unchanged. Da Kay MD Abdomen/Pelvis CT 03/21/18 1639 Signed Impressions: Service Date/Time: Thursday, March 22, 2018 01:10 - CONCLUSION: 1. Diffuse mild mural thickening of the colon most characteristic of a mild colitis. 2. Diffuse fatty infiltration of the liver. 3. Residual contrast in kidneys from contrast injection performed yesterday characteristic of diminished renal function. 4. Mild anasarca. Dense consolidation at the lung bases with trace pleural fluid. 5. NG in stomach. Reed catheter in bladder. Right femoral line present. 1. Da Kay MD Renal Ultrasound 03/21/18 0000 Signed Impressions: Service Date/Time: Wednesday, March 21, 2018 20:41 - CONCLUSION: 1. Kidneys are borderline echogenic which can be seen with medical renal disease. 2. No hydronephrosis. Piero Garzon MD Abdomen X-Ray 03/21/18 0000 Signed Impressions: Service Date/Time: Wednesday, March 21, 2018 19:33 - CONCLUSION: Unremarkable abdomen. Piero Garzon MD Head CT 03/20/18 0000 Signed Impressions: Service Date/Time: Tuesday, March 20, 2018 10:57 - CONCLUSION: Normal examination. Per Barakat MD CT Angiography 03/20/18 0000 Signed Impressions: Service Date/Time: Tuesday, March 20, 2018 11:04 - CONCLUSION: 1. No pulmonary embolus. 2. Fairly extensive dependent areas of consolidation in both hemithoraces. 3. Innumerable ground glass nodular densities in the aerated portions of the lung most prominent in the apices. Findings are nonspecific but could represent alveolar hemorrhage or septic emboli. Dexter Benitez MD Laboratory Test 03/21/18 15:23 03/21/18 15:52 03/21/18 20:10 03/21/18 22:40 Lactic Acid Level 5.0 mmol/L 8.1 mmol/L Procalcitonin 3.10 ng/mL Blood Gas Puncture Site ART LINE ART LINE Blood Gas Patient Temperature 98.6 98.6 Blood Gas HCO3 17 mmol/L 12 mmol/L Blood Gas Base Excess -8.3 mmol/L -13.9 mmol/L Blood Gas Oxygen Saturation 95 % 97 % Arterial Blood pH 7.26 7.22 Arterial Blood Partial Pressure CO2 40 mmHg 32 mmHg Arterial Blood Partial Pressure O2 104 mmHg 237 mmHg Arterial Blood Oxygen Content 19.1 Vol % 16.6 Vol % Arterial Blood Carboxyhemoglobin 0.2 % 0.2 % Arterial Blood Methemoglobin 1.6 % 1.7 % Blood Gas Hemoglobin 14.3 G/DL 11.8 G/DL Oxygen Delivery Device VENTILATOR VENTILATOR Blood Gas Ventilator Setting [facility]/AC/500/ [facility]/AC/22/500 Blood Gas Inspired Oxygen 50 % 100 % White Blood Count 21.8 TH/MM3 Red Blood Count 4.15 MIL/MM3 Hemoglobin 12.6 GM/DL Hematocrit 37.5 % Mean Corpuscular Volume 90.5 FL Mean Corpuscular Hemoglobin 30.5 PG Mean Corpuscular Hemoglobin Concent 33.7 % Red Cell Distribution Width 14.3 % Platelet Count 28 TH/MM3 Mean Platelet Volume 9.3 FL Neutrophils (%) (Auto) 96.4 % Lymphocytes (%) (Auto) 1.9 % Monocytes (%) (Auto) 1.4 % Eosinophils (%) (Auto) 0.1 % Basophils (%) (Auto) 0.2 % Neutrophils # (Auto) 21.1 TH/MM3 Lymphocytes # (Auto) 0.4 TH/MM3 Monocytes # (Auto) 0.3 TH/MM3 Eosinophils # (Auto) 0.0 TH/MM3 Basophils # (Auto) 0.0 TH/MM3 CBC Comment AUTO DIFF Differential Total Cells Counted 100 Neutrophils % (Manual) 79 % Band Neutrophils % 16 % Lymphocytes % 2 % Monocytes % 2 % Basophils % 1 % Neutrophils # (Manual) 20.7 TH/MM3 Nucleated Red Blood Cells 1 /100 WBC Differential Comment FINAL DIFF MANUAL Platelet Estimate LOW Platelet Morphology Comment NORMAL Ovalocytes 1+ Prothrombin Time 33.7 SEC Prothromb Time International Ratio 3.3 RATIO Nasal Screen MRSA (PCR) MRSA NOT DETECTED Blood Urea Nitrogen 44 MG/DL Creatinine 6.37 MG/DL Random Glucose 67 MG/DL Total Protein 5.2 GM/DL Albumin 2.6 GM/DL Calcium Level 6.1 MG/DL Alkaline Phosphatase 99 U/L Aspartate Amino Transf (AST/SGOT) 8028 U/L Alanine Aminotransferase (ALT/SGPT) 4813 U/L Total Bilirubin 2.5 MG/DL Sodium Level 142 MEQ/L Potassium Level 5.7 MEQ/L Chloride Level 107 MEQ/L Carbon Dioxide Level 17.8 MEQ/L Anion Gap 17 MEQ/L Estimat Glomerular Filtration Rate 11 ML/MIN Protein Corrected Calcium 7.0 MG/DL Total Creatine Kinase 164228 U/L Creatine Kinase MB 738.3 NG/ML Creatine Kinase MB % 0.5 % Test 03/22/18 04:30 03/22/18 06:05 03/22/18 07:50 White Blood Count 27.1 TH/MM3 Red Blood Count 4.14 MIL/MM3 Hemoglobin 12.5 GM/DL Hematocrit 39.4 % Mean Corpuscular Volume 95.3 FL Mean Corpuscular Hemoglobin 30.3 PG Mean Corpuscular Hemoglobin Concent 31.8 % Red Cell Distribution Width 14.9 % Platelet Count 74 TH/MM3 Mean Platelet Volume 8.7 FL Neutrophils (%) (Auto) 94.6 % Lymphocytes (%) (Auto) 3.7 % Monocytes (%) (Auto) 1.5 % Eosinophils (%) (Auto) 0.0 % Basophils (%) (Auto) 0.2 % Neutrophils # (Auto) 25.7 TH/MM3 Lymphocytes # (Auto) 1.0 TH/MM3 Monocytes # (Auto) 0.4 TH/MM3 Eosinophils # (Auto) 0.0 TH/MM3 Basophils # (Auto) 0.1 TH/MM3 CBC Comment AUTO DIFF Differential Total Cells Counted 100 Neutrophils % (Manual) 79 % Band Neutrophils % 15 % Lymphocytes % 4 % Monocytes % 1 % Neutrophils # (Manual) 25.7 TH/MM3 Myelocytes 1 % Nucleated Red Blood Cells 4 /100 WBC Differential Comment FINAL DIFF MANUAL Toxic Vacuolation PRESENT Platelet Estimate LOW Platelet Morphology Comment NORMAL Yuval Cells 1+ Prothrombin Time 37.8 SEC Prothromb Time International Ratio 3.8 RATIO Activated Partial Thromboplast Time 44.2 SEC Fibrinogen 114 mg/dL Blood Urea Nitrogen 40 MG/DL Creatinine 6.52 MG/DL Random Glucose 76 MG/DL Total Protein 5.0 GM/DL Albumin 2.3 GM/DL Calcium Level 6.1 MG/DL Phosphorus Level 9.7 MG/DL Magnesium Level 1.8 MG/DL Alkaline Phosphatase 112 U/L Aspartate Amino Transf (AST/SGOT) GREATER THAN 41563 U/L Alanine Aminotransferase (ALT/SGPT) GREATER THAN 92275 U/L Total Bilirubin 2.6 MG/DL Sodium Level 145 MEQ/L Potassium Level 6.0 MEQ/L Chloride Level 103 MEQ/L Carbon Dioxide Level 12.1 MEQ/L Anion Gap 30 MEQ/L Estimat Glomerular Filtration Rate 10 ML/MIN Lactic Acid Level 19.7 mmol/L Protein Corrected Calcium 7.1 MG/DL Total Creatine Kinase 708881 U/L Creatine Kinase MB 578.6 NG/ML Creatine Kinase MB % 0.5 % Troponin I GREATER THAN 40.00 NG/ML Random Vancomycin Level 18.1 COMMENT Blood Gas Puncture Site ART LINE Blood Gas Patient Temperature 98.6 Blood Gas HCO3 10 mmol/L Blood Gas Base Excess -19.6 mmol/L Blood Gas Oxygen Saturation 87 % Arterial Blood pH 6.95 Arterial Blood Partial Pressure CO2 49 mmHg Arterial Blood Partial Pressure O2 75 mmHg Arterial Blood Oxygen Content 15.0 Vol % Arterial Blood Carboxyhemoglobin 0.0 % Arterial Blood Methemoglobin 1.7 % Blood Gas Hemoglobin 12.3 G/DL Oxygen Delivery Device VENTILATOR Blood Gas Ventilator Setting PRVC/AC Blood Gas Inspired Oxygen 100 % Salicylates Level LESS THAN 1.7 MG/DL Acetaminophen Level 5.0 MCG/ML Date/Time Source Procedure Growth Status 03/20/18 16:01 Blood Peripheral Aerobic Blood Culture - Preliminary NO GROWTH IN 2 DAYS Resulted 03/20/18 16:01 Blood Peripheral Anaerobic Blood Culture - Preliminary NO GROWTH IN 2 DAYS Resulted 03/21/18 08:50 Nasal Washing Influenza Types A,B Antigen (JIHAN) - Final NEGATIVE FOR FLU A AND B ANTIGEN.... Complete 03/21/18 12:00 Urine Catheterized Urine Urine Culture Pending Received Physical Examination HEENT: normocephalic; atraumatic; no jaundice. CHEST: Chest is clear to auscultation and percussion. CARDIAC: Regular rate and rhythm with no murmur gallop or rubs. ABDOMEN: Soft, nondistended, obese, nontender; bowel sounds are present in all four quadrants. EXTREMITIES: No clubbing, cyanosis, or edema. SKIN: Normal; no rash; no jaundice. [employer]: Sedated on a vent (Ceci Herrera) Assessment and Plan Plan - Fulminant liver failure- likely shocked liver, no previous hx of this, pt not daily or heavy drinker, he is s/p cardiac arrest. CT of A/P diffused mild mural thickening of the colon suggesting mild colitis. fatty liver, mild anasarca, pleural fluid, NG in stomach. CT of head negative. Labs showed lactic acidemia, metabolic acidosis, rhabdomyolysis. pt with low plt, coagulopathy, leucocytosis, T bili 2.6, AST >70680, ALT >56726, high CK Negative toxicology except Benzo - AKF- Nephrology on the case HHD - Rhabdomyolysis- Nephrology on the case HHD - Leucocytosis- ID on the case - Cardiac arrest- Unknown etiology , likely due to erythremia, cardiac catheterization emergently was performed. no obstructive coronary artery disease was visualized. CT angiography was performed, no PE but raised possibility for alveolar hemorrhage or septic emboli. - Respiratory failure- intubated by [facility] Plan: - NPO - LFTs, cbc, PT/INR every 4 hrs - liver work up, immunology and serology - guarded prognosis - Cont. current measures - Pt seen and examined by Dr. Reese and myself and this note is written on her behalf. (Ceci Herrera) Physician Comments elevated lfts-most likely secondary to massive rhabdomyolyses, shock liver liver work-up ordered multiorgan failure colitis-suspect ischemic colitis no history of drug use or supplements other than HerbaLife -recommended dosage , no history of snake or insect bites or exposure to toxic substances supportive care overall poor prognosis monitor pt/inr, lfts , ammonia, cbc supportive care (Pam Resee MD) Ceci Herrera [facility] March 22, 2018 12:22 Pam Reese MD March 22, 2018 18:38
--- NOTE | 2018-03-22 13:06 | HHI.IDPN ---
Subjective Subjective Remarks pt is doing very poorly Critical and unstable On vent up to 90% FIO2 On 3 pressors, high dosess and BP still low On CVVHD Lactic acid 19.7 CKs peaked @ 144K AST/ALT > 10 K Antibiotics azithro - stopped azactam vanco flagyl doxy Allergies: Coded Allergies: Penicillins (Verified Allergy, Severe, Anaphylaxis, 03/21/18) No Known Allergies (Verified Allergy, Unknown, 03/20/18) Objective . Vital Signs Date Time Temp Pulse Resp B/P (MAP) Pulse Ox O2 Delivery O2 Flow Rate FiO2 03/22/18 12:08 80 03/22/18 11:05 98.0 103 28 107/43 (64) 90 03/22/18 11:04 103 03/22/18 10:08 98.9 03/22/18 09:52 95 90 03/22/18 09:37 98.9 03/22/18 09:26 98.9 106 30 114/48 95 03/22/18 09:13 98.9 106 30 100/35 95 03/22/18 08:26 100 03/22/18 08:24 108 03/22/18 08:21 99.0 113 25 112/47 (68) 98 03/22/18 07:30 93 100 03/22/18 06:11 105 138/53 03/22/18 05:59 107 137/52 03/22/18 04:15 100 03/22/18 04:00 105 03/22/18 04:00 98.8 107 26 139/54 (82) 90 03/22/18 03:50 76 88/41 03/22/18 03:45 88 100 03/22/18 03:45 80 65/28 03/22/18 02:25 112 107/38 03/22/18 01:00 100 100 03/22/18 00:00 99.1 116 38 106/47 (66) 92 03/22/18 00:00 116 03/21/18 23:30 96 70 03/21/18 23:00 80 03/21/18 22:00 100 03/21/18 21:30 90 03/21/18 21:15 90 100 03/21/18 21:00 70 03/21/18 21:00 121 117/46 03/21/18 20:00 50 03/21/18 20:00 99.9 108 23 105/64 (78) 95 102/45 (64) 03/21/18 20:00 108 03/21/18 17:36 99.6 108 20 88/42 98 03/21/18 17:19 107 20 90/41 97 03/21/18 17:18 99.0 03/21/18 16:35 99.0 104 20 89/39 95 03/21/18 16:35 97 50 03/21/18 16:28 99.0 106 20 87/38 98 03/21/18 16:03 50 03/21/18 15:07 106 03/21/18 15:06 99.0 104 20 85/42 (56) 98 03/21/18 13:04 98 50 03/22/18 03/22/18 03/23/18 15:00 23:00 07:00 Intake Total 3876 ml Output Total 5 ml Balance 3871 ml IV Total 2800 ml FFP 1026 ml Blood Product IV Normal Saline Flush 50 ml Hemodialysis 5 ml . Laboratory Tests Test 03/20/18 20:54 03/21/18 04:40 03/21/18 20:10 03/22/18 04:30 White Blood Count 26.9 TH/MM3 22.0 TH/MM3 21.8 TH/MM3 27.1 TH/MM3 Red Blood Count 4.94 MIL/MM3 4.77 MIL/MM3 4.15 MIL/MM3 4.14 MIL/MM3 Hemoglobin 14.9 GM/DL 14.5 GM/DL 12.6 GM/DL 12.5 GM/DL Hematocrit 44.3 % 42.8 % 37.5 % 39.4 % Mean Corpuscular Volume 89.7 FL 89.8 FL 90.5 FL 95.3 FL Mean Corpuscular Hemoglobin 30.2 PG 30.3 PG 30.5 PG 30.3 PG Mean Corpuscular Hemoglobin Concent 33.7 % 33.8 % 33.7 % 31.8 % Red Cell Distribution Width 13.9 % 14.2 % 14.3 % 14.9 % Platelet Count 112 TH/MM3 50 TH/MM3 28 TH/MM3 74 TH/MM3 Mean Platelet Volume 7.9 FL 8.4 FL 9.3 FL 8.7 FL Neutrophils (%) (Auto) 90.3 % 96.4 % 94.6 % Lymphocytes (%) (Auto) 6.6 % 1.9 % 3.7 % Monocytes (%) (Auto) 2.8 % 1.4 % 1.5 % Eosinophils (%) (Auto) 0.0 % 0.1 % 0.0 % Basophils (%) (Auto) 0.3 % 0.2 % 0.2 % Neutrophils # (Auto) 19.9 TH/MM3 21.1 TH/MM3 25.7 TH/MM3 Lymphocytes # (Auto) 1.5 TH/MM3 0.4 TH/MM3 1.0 TH/MM3 Monocytes # (Auto) 0.6 TH/MM3 0.3 TH/MM3 0.4 TH/MM3 Eosinophils # (Auto) 0.0 TH/MM3 0.0 TH/MM3 0.0 TH/MM3 Basophils # (Auto) 0.1 TH/MM3 0.0 TH/MM3 0.1 TH/MM3 CBC Comment AUTO DIFF AUTO DIFF AUTO DIFF Differential Total Cells Counted 100 100 100 Neutrophils % (Manual) 85 % 79 % 79 % Band Neutrophils % 8 % 16 % 15 % Lymphocytes % 6 % 2 % 4 % Monocytes % 1 % 2 % 1 % Neutrophils # (Manual) 20.5 TH/MM3 20.7 TH/MM3 25.7 TH/MM3 Nucleated Red Blood Cells 1 /100 WBC 1 /100 WBC 4 /100 WBC Differential Comment FINAL DIFF MANUAL FINAL DIFF MANUAL FINAL DIFF MANUAL Platelet Estimate LOW LOW LOW Platelet Morphology Comment NORMAL NORMAL NORMAL Blood Smear Pathologist Review Erythrocyte Sedimentation Rate 1 mm/hr Basophils % 1 % Ovalocytes 1+ Myelocytes 1 % Toxic Vacuolation PRESENT [place] Cells 1+ Laboratory Tests Test 03/20/18 14:30 03/20/18 16:01 03/20/18 17:38 03/20/18 20:54 Lactic Acid Level 5.7 mmol/L 5.7 mmol/L Blood Urea Nitrogen 24 MG/DL 26 MG/DL Creatinine 3.09 MG/DL 3.50 MG/DL Random Glucose 150 MG/DL 90 MG/DL Calcium Level 7.6 MG/DL 7.1 MG/DL Phosphorus Level 2.0 MG/DL Magnesium Level 2.6 MG/DL Sodium Level 143 MEQ/L 145 MEQ/L Potassium Level 4.1 MEQ/L 3.9 MEQ/L Chloride Level 110 MEQ/L 114 MEQ/L Carbon Dioxide Level 18.8 MEQ/L 17.0 MEQ/L Anion Gap 14 MEQ/L 14 MEQ/L Estimat Glomerular Filtration Rate 25 ML/MIN 21 ML/MIN Troponin I GREATER THAN 40.00 NG/ML Total Protein 6.0 GM/DL Albumin 3.2 GM/DL Alkaline Phosphatase 92 U/L Aspartate Amino Transf (AST/SGOT) 2236 U/L Alanine Aminotransferase (ALT/SGPT) 640 U/L Total Bilirubin 0.9 MG/DL Protein Corrected Calcium 7.7 MG/DL Test 03/21/18 04:40 03/21/18 15:23 03/21/18 20:10 03/22/18 04:30 Blood Urea Nitrogen 34 MG/DL 44 MG/DL 40 MG/DL Creatinine 4.58 MG/DL 6.37 MG/DL 6.52 MG/DL Random Glucose 112 MG/DL 67 MG/DL 76 MG/DL Total Protein 5.5 GM/DL 5.2 GM/DL 5.0 GM/DL Albumin 2.9 GM/DL 2.6 GM/DL 2.3 GM/DL Calcium Level 6.7 MG/DL 6.1 MG/DL 6.1 MG/DL Phosphorus Level 5.0 MG/DL 9.7 MG/DL Magnesium Level 2.1 MG/DL 1.8 MG/DL Alkaline Phosphatase 103 U/L 99 U/L 112 U/L Aspartate Amino Transf (AST/SGOT) 3194 U/L 8028 U/L GREATER THAN 70592 U/L Alanine Aminotransferase (ALT/SGPT) 1105 U/L 4813 U/L GREATER THAN 61288 U/L Total Bilirubin 1.3 MG/DL 2.5 MG/DL 2.6 MG/DL Sodium Level 143 MEQ/L 142 MEQ/L 145 MEQ/L Potassium Level 3.7 MEQ/L 5.7 MEQ/L 6.0 MEQ/L Chloride Level 110 MEQ/L 107 MEQ/L 103 MEQ/L Carbon Dioxide Level 17.8 MEQ/L 17.8 MEQ/L 12.1 MEQ/L Anion Gap 15 MEQ/L 17 MEQ/L 30 MEQ/L Estimat Glomerular Filtration Rate 16 ML/MIN 11 ML/MIN 10 ML/MIN Lactic Acid Level 4.4 mmol/L 5.0 mmol/L 8.1 mmol/L 19.7 mmol/L Protein Corrected Calcium 7.5 MG/DL 7.0 MG/DL 7.1 MG/DL Total Creatine Kinase 21968 U/L 935377 U/L 892393 U/L Creatine Kinase MB 843.8 NG/ML 738.3 NG/ML 578.6 NG/ML Creatine Kinase MB % 1.0 % 0.5 % 0.5 % Troponin I GREATER THAN 40.00 NG/ML GREATER THAN 40.00 NG/ML C-Reactive Protein LESS THAN 0.29 MG/DL Procalcitonin 3.10 ng/mL Microbiology Date/Time Source Procedure Growth Status 03/20/18 16:01 Blood Peripheral Aerobic Blood Culture - Preliminary NO GROWTH IN 2 DAYS Resulted 03/20/18 16:01 Blood Peripheral Anaerobic Blood Culture - Preliminary NO GROWTH IN 2 DAYS Resulted 03/20/18 15:50 Blood Peripheral Aerobic Blood Culture - Preliminary NO GROWTH IN 2 DAYS Resulted 03/20/18 15:50 Blood Peripheral Anaerobic Blood Culture - Preliminary NO GROWTH IN 2 DAYS Resulted 03/21/18 08:50 Nasal Washing Influenza Types A,B Antigen (JIHAN) - Final NEGATIVE FOR FLU A AND B ANTIGEN.... Complete 03/20/18 15:00 Sputum Endotracheal Gram Stain - Final Complete 03/20/18 15:00 Sputum Endotracheal Sputum Culture - Final HEAVY GROWTH NORMAL RESPIRATORY EBONY Complete 03/21/18 12:00 Urine Catheterized Urine Urine Culture Pending Received 03/20/18 15:15 Urine Catheterized Urine Legionella Antigen - Final PRESUMPTIVE NEGATIVE FOR LEGIONELLA P... Complete 03/20/18 15:15 Urine Catheterized Urine Streptococcus pneumoniae Antigen (M - Final PRESUMPTIVE NEGATIVE FOR STREPTOCOCCU... Complete 03/20/18 15:15 Urine Catheterized Urine Urine Culture - Final NO GROWTH IN 48 HOURS. Complete Imaging Last Impressions Chest X-Ray 03/22/18 0600 Signed Impressions: Service Date/Time: Thursday, March 22, 2018 05:24 - CONCLUSION: 1. Slight increase in bilateral airspace disease over the last day. Support apparatus unchanged. Da Kay MD Abdomen/Pelvis CT 03/21/18 1639 Signed Impressions: Service Date/Time: Thursday, March 22, 2018 01:10 - CONCLUSION: 1. Diffuse mild mural thickening of the colon most characteristic of a mild colitis. 2. Diffuse fatty infiltration of the liver. 3. Residual contrast in kidneys from contrast injection performed yesterday characteristic of diminished renal function. 4. Mild anasarca. Dense consolidation at the lung bases with trace pleural fluid. 5. NG in stomach. Reed catheter in bladder. Right femoral line present. 1. Da Kay MD Renal Ultrasound 03/21/18 0000 Signed Impressions: Service Date/Time: Wednesday, March 21, 2018 20:41 - CONCLUSION: 1. Kidneys are borderline echogenic which can be seen with medical renal disease. 2. No hydronephrosis. Piero Garzon MD Abdomen X-Ray 03/21/18 Signed Impressions: Service Date/Time: Wednesday, March 21, 2018 19:33 - CONCLUSION: Unremarkable abdomen. Piero Garzon MD Head CT 03/20/18 0000 Signed Impressions: Service Date/Time: Tuesday, March 20, 2018 10:57 - CONCLUSION: Normal examination. Per Barakat MD CT Angiography 03/20/18 0000 Signed Impressions: Service Date/Time: Tuesday, March 20, 2018 11:04 - CONCLUSION: 1. No pulmonary embolus. 2. Fairly extensive dependent areas of consolidation in both hemithoraces. 3. Innumerable ground glass nodular densities in the aerated portions of the lung most prominent in the apices. Findings are nonspecific but could represent alveolar hemorrhage or septic emboli. Dexter Benitez MD Physical Exam CONSTITUTIONAL/GENERAL: This is a moderately ovverweigth young male patient, sedated, int'd on mech vent 'n TUBES/LINES/DRAINS: SKIN: No jaundice, rashes, or lesions.B/l knee abrasions, no s/o infx . Skin temperature appropriate. Not diaphoretic. HEAD: Atraumatic. Normocephalic. EYES: Pupils equal and round and reactive. Extraocular motions intact. + mild scleral icterus. + injection and conjuctival edema. Fundi not examined. ENT: Hearing not tested . Nose without bleeding or purulent drainage. Throat without visible erythema, exudates, masses, or lesions. NECK: Trachea midline. Supple, nontender. CARDIOVASCULAR: Regular rate and rhythm without gallops, or rubs + 2/6 systolic murmur on LUSB No JVD. Peripheral pulses symmetric. RESPIRATORY/CHEST: Symmetric, unlabored respirations. Clear to auscultation. Breath sounds equal bilaterally. No wheezes, rales, or rhonchi. GASTROINTESTINAL: Abdomen soft, no reaction to plaption + distended. No hepato- splenomegaly, or palpable masses. No guarding. Bowel sounds not audible GENITOURINARY: Without palpable bladder distension. Reed catheter in place with no urine MUSCULOSKELETAL: Extremities without clubbing, + b/l feet cyanosis, + firmis edema present in b/l calds . No joint tenderness or effusion noted. + mottling or clubbing. Pedal pulses not palpable, but dopplerable NEUROLOGICAL: sedated; unresponsive PSYCHIATRIC: unable to assess Assessment & Plan Remarks Systemic illness Multi- organ failure: ARF, acute VDRF, shock liver, refractory hypotenstion Rhabdomyolisis Sepsis (WBC 26 K, fever 102, lactic acidosis) Suspected ischemic colitis Pulmonary infiltrates favouring ARDS, less liekly atypical PNA DIC Pt is critically ill and unstable His prognosis is very poor cont zosyn, vanco (per levels), doxycyline dc azithro fu clx fu lactic acid Discussed Condition With family (mother- in-law, ) dw Peña Winter Bratu dw RN Crossman, Alexandra A. MD March 22, 2018 13:05
[2018-03-22] MEDS ORDERED: VANCOMYCIN INJ 1,500 MG in SODIUM CHLORID 0.9% 500 ML INJ 500 ML IV ONE (14:00)
[2018-03-22] MEDS ORDERED: ACETYLCYSTEINE INJ 10,000 MG in DEXTROSE 5% IN WATE 1000ML INJ 1,000 ML IV ONE ×2 (14:30)
[2018-03-22] MEDS ORDERED: HYDROCORTISONE SOD SUCCINATE 100 MG VIAL IV PUSH STA (14:35)
--- NOTE | 2018-03-22 15:41 | MB ---
cc: Riaz Valentin MD DATE: 03/22/2018 REFERRING PHYSICIAN: Dr. Josue Spivey, medical critical care/anesthesia. REASON FOR CONSULTATION: Acute rhabdomyolysis, multiorgan failure. HISTORY OF PRESENT ILLNESS: This 27-year-old male is admitted through the Emergency Room. Apparently, he was in [place] and after a run became lightheaded and syncopal. Patient was worked up, admitted and then transferred to ICU. I was called considering his current status and possible rhabdomyolysis that would need fasciotomy for compartment syndrome. This patient was in excellent health apparently until now. He is right now admitted since yesterday and opinion is sought on the above noted. PAST MEDICAL HISTORY: Negative, apparently. PAST SURGICAL HISTORY: Negative. MEDICATIONS: The patient does not take any. PHYSICAL EXAMINATION: GENERAL: Reveals a 27-year-old male ventilatory dependent in the ICU. HEENT: Normocephalic. Significant swelling of the head and neck area due to the systemic inflammatory response and third space fluid loss. Pupils are equal and nonreactive. Extraocular muscles cannot be tested. CHEST: Bilateral breath sounds. The patient is fully ventilatory supported. HEART: Irregular rhythm. Hemodynamically, the patient is heavily supported with vasopressors. ABDOMEN: Soft. No rebound, no guarding. No masses, no signs of even questionable abdominal compartment syndrome. EXTREMITIES: The patient has actually palpable proximal pulses and dopplerable distal pulses. No vascular acute deficit. It should be noted the patient is on high dose of vasopressors and despite that has a flow. Muscle compartments appear to be nice and soft and there is not a question that the patient might have a compartment syndrome in these. There is absolutely no compartment syndrome at this time. NEUROLOGIC: Exam of course cannot be performed. CRITICAL CARE VASCULAR EVALUATION: Neurologically the patient is currently a [place] coma scale of 3. He is on the respirator. Hemodynamic stability is maintained with a massive dose of vasopressors including Levophed and Martell-Synephrine. While CPK is elevated 125,000. The CK-MB bands were elevated as well as troponin, so the patient underwent uneventful catheterization. In patients with massive elevation of the CK, MB bands will be elevated consequently without any myocardial injury. Metabolically, the patient is currently massively acidotic with metabolic acidosis and lactic acid level of about 19.7. This has been going up over the last 24 hours. In addition, the patient has a massive liver failure with elevation of bilirubin, AST, ALT and alkaline phosphatase. CONCLUSION: After reviewing the above noted, several conclusions can be made. 1. Patient does not have compartment syndrome in either upper or lower extremities. He is on massive amounts of vasopressors and despite that still has flow to the distal extremities. Metabolic acidosis is clearly caused by continuous-release of lactic acid, systemic hypoxia and ongoing rhabdomyolysis, accompanied by liver and renal failure. The causes of such rhabdomyolysis are massive amount of exercise, which this patient apparently did not do, according to his friends, this was a simple jog. 2. Compression syndrome due to the lack of blood flow to major part of the body, either by occlusion of the vessel or crush syndrome which in this case does not exist. There is a whole slew of metabolic myopathies and mitochondrial enzymatic deficiencies which can cause in certain situation massive rhabdomyolysis other than the one associated with acetylcholinesterase deficit, which is most common one. The metabolic myopathies either include purine deficiency or lipid metabolism disorders manifested by deficits of enzymes and carnitine cycle defects or deficits in lipid beta oxidation fatty acid cycles, as well as diseases associated with glycogen storage diseases. Any of this is somewhat academic because treatment at this point is symptomatic and supportive. I am sorry I do not have anything more to add. I will continue to follow the patient with you and help as much as I can, but right now the patient does not have any indication for either a surgical fasciotomy or any type of other surgical intervention. I thank you very much for the referral. Critical care: 38 minutes. MD MARTINE Marroquin/DEEPIKA , 02:38 PM , 03:40 PM NAZ
--- NOTE | 2018-03-22 15:47 | PD.PROCEDR ---
Procedure Note Procedure Procedure: Arterial Line Placement Left femoral arterial line Diagnosis: Distributive shock Indications: Need for highly potent vasoactive substances Consent: Consent is emergent. Description of the Procedure: The left groin was prepped and draped sterilely. Using ultrasound guidance, the left femoral artery was identified. The anatomy of the left groin was normal. Under direct real-time ultrasound guidance, the left femoral artery was located and a needle was advanced into the artery. A 18 gauge, 16 cm catheter was advanced into the artery using a modified Seldinger technique. The catheter was sutured to the skin and a sterile dressing was applied. The catheter was connected to a pressure transducer and an arterial waveform was noted. There were no immediate complications noted. There was minimal EBL. I personally performed the procedure. Johnnie Spivey MD March 22, 2018 15:47
[2018-03-22 16:13] LABS: HEPARIN INDUCED PLATELET AB NEGATIVE (NEGATIVE)
[2018-03-22] MEDS ORDERED: SODIUM BICARBONATE 8.4% INJ 50 MEQ/50 ML SYR IV PUSH ONE ×2 (16:45)
[2018-03-22 18:35] LABS: IRON (FE) 223 MCG/DL (65-175); TOTAL IRON BINDING CAPACITY 176 MCG/DL (250-450)
--- NOTE | 2018-03-22 18:44 | ECHRPT ---
Indication: CHF CONCLUSIONS Technically difficult study. Normal left ventricular size. Wall thickness is measured at the upper limits of normal. The left ventricular systolic function is normal with an estimated ejection fraction in the range of 60-65%. A left sided pleural effusion is present. The right ventricle is mildly dilated. The right ventricular systoilc function is normal. The tricuspid valve is not well visualized. There is trace tricuspid valve regurgitation. There is estimated mild pulmonary hypertension present (range 40-50 mmHg). BP: / HR: Rhythm: MEASUREMENTS (Male / Female) Normal Values Technical Quality:Technically difficult study DOPPLER TR Peak Velocity 282.0 cm/s TR Peak Gradient 31.8 mmHg Right Atrial Pressure 10.0 mmHg Pulmonary Artery Systolic Pressu 41.8 mmHg Right Ventricular Systolic Press 41.8 mmHg FINDINGS LEFT VENTRICLE Normal left ventricular size. Wall thickness is measured at the upper limits of normal. The left ventricular systolic function is normal with an estimated ejection fraction in the range of 60-65%. RIGHT VENTRICLE The right ventricle is mildly dilated. The right ventricular systoilc function is normal. LEFT ATRIUM The left atrial size is normal. RIGHT ATRIUM The right atrial size is normal. TRICUSPID VALVE The tricuspid valve is not well visualized. There is trace tricuspid valve regurgitation. There is estimated mild pulmonary hypertension present (range 40-50 mmHg). PERICARDIUM A left sided pleural effusion is present. Orion Pompa MD, FACC (Electronically Signed) Final Date:22 Mar 2018 18:43
[2018-03-22 18:56] LABS: FERRITIN GREATER THAN 2000 NG/ML (26-388)
[2018-03-22] MEDS: SODIUM CHLOR 0.9% 1000 ML INJ 1,000 ML IV PRN ×2 (20:00→22:00)
[2018-03-22] MEDS ORDERED: MAGNESIUM SULFATE 1 GM PREMIX 100 ML ONE (21:08)
[2018-03-22] MEDS: MAGNESIUM SULFATE 1 GM PREMIX 100 ML IV SCH ×2 (21:30→22:30)
[2018-03-22] MEDS: EPINEPHrine (1:1000) INJ 2 MG in DEXTROSE 5% IN WATER INJ 250 ML IV PRN ×2 (21:34)
[2018-03-22] MEDS ORDERED: HYDROCORTISONE SOD SUCCINATE 100 MG VIAL IV PUSH SCH (22:00)
[2018-03-22] MEDS: SODIUM BICARBONATE 8.4% INJ 50 MEQ/50 ML SYR IV SCH (23:00)
[2018-03-23] VITALS: BP_SYST 103; BP_SYST 98; BP_DIAS 22; BP_DIAS 37; PULSE 85; PULSE 86; RESP 27; O2SAT 90
[2018-03-23] MEDS: MICAFUNGIN INJ 150 MG in SODIUM CHLORIDE 0.9% INJ 100 ML IV SCH (00:39)
[2018-03-23] MEDS: SODIUM BICARBONATE 8.4% INJ 50 MEQ/50 ML SYR IV SCH ×2 (00:41→02:30)
[2018-03-23] MEDS: NOREPINEPHRINE-DEXTROSE DRIP 250 ML IV PRN ×3 (00:42→03:27)
[2018-03-23] MEDS ORDERED: GLUCAGON 1 MG/ML VIAL OTHER PRN (01:15)
[2018-03-23] MEDS ORDERED: DEXTROSE 50% IN WATER 50 ML VIAL(D50) IV PUSH PRN (01:15)
[2018-03-23] MEDS: PHENYLEPHRINE 40 MG in D5W 500 ML IV PRN (01:27)
[2018-03-23] MEDS: DOXYCYCLINE INJ 100 MG in SODIUM CHLORIDE 0.9% INJ 100 ML IV SCH (02:29)
[2018-03-23] MEDS ORDERED: LIDOCAINE HCL 2% 100 MG/5 ML SYRINGE ONE (02:36)
[2018-03-23 02:40] LABS: MAGNESIUM 1.8 MG/DL (1.5-2.5)
[2018-03-23] MEDS ORDERED: DOBUTamine PREMIX DRIP 250 ML IV PRN (02:54)
[2018-03-23] MEDS: CHLORHEXIDINE GLUCONATE 2 % 1 PACK (2 CLOTHS) TOP SCH (03:20)
[2018-03-23] MEDS ORDERED: LIDOCAINE HCL 2% 100 MG/5 ML SYRINGE IV PUSH ONE (03:30)
[2018-03-23] MEDS: ARTIFICIAL TEARS OPTH SOLN 15 ML BTL EACH EYE SCH (03:41)
[2018-03-23] MEDS: RESP: ALBUTEROL 2.5 MG/IPRATROPIUM 0.5 MG NEB (SCH) INH (03:47)
[2018-03-23 03:50] VITALS: O2SAT 88
[2018-03-23 04:00] VITALS: BP 51/22; PULSE 56; RESP 27; O2SAT 90
[2018-03-23 04:18] LABS: HEMATOCRIT 30.8 % (39.0-51.0); HEMOGLOBIN 9.7 GM/DL (13.0-17.0); MEAN CELL VOLUME 98.2 FL (80.0-100.0); MEAN CORPUSCULAR HEMOGLOBIN 30.8 PG (27.0-34.0); MEAN CORPUSCULAR HGB CONC 31.3 % (32.0-36.0); MEAN PLATELET VOLUME 9.8 FL (7.0-11.0); PLATELET COUNT 59 TH/MM3 (150-450); RED BLOOD COUNT 3.14 MIL/MM3 (4.50-5.90); RED CELL DISTRIBUTION WIDTH 16.6 % (11.6-17.2); WHITE BLOOD COUNT 21.8 TH/MM3 (4.0-11.0)
[2018-03-23 04:29] LABS: INTERNATIONAL NORMALIZED RATIO 4.4 RATIO; PROTHROMBIN TIME - PATIENT 43.7 SEC (9.8-11.6)
[2018-03-23 04:31] VITALS: PULSE 0
[2018-03-23 04:44] VITALS: BP 51/22; PULSE 56
[2018-03-23] MEDS: EPINEPHrine (1:1000) INJ 2 MG in DEXTROSE 5% IN WATER INJ 250 ML IV PRN ×2 (04:44)
[2018-03-23 05:16] LABS: ALBUMIN 2.3 GM/DL (3.4-5.0); ALKALINE PHOSPHATASE 124 U/L (45-117); BICARBONATE 10.1 MEQ/L (21.0-32.0); BLOOD UREA NITROGEN 22 MG/DL (7-18); CALCIUM 7.3 MG/DL (8.5-10.1); CALCIUM-PROTEIN CORRECTED 8.7 MG/DL (8.5-10.1); CHLORIDE 93 MEQ/L (98-107); CREATININE 4.72 MG/DL (0.60-1.30); GLOMERULAR FILTRATION RATE 15 ML/MIN (>89); GLUCOSE,RANDOM 358 MG/DL (74-106); RANDOM VANCOMYCIN 19.4 COMMENT; SODIUM (NA) 138 MEQ/L (136-145); TOTAL BILIRUBIN ADULT 4.8 MG/DL (0.2-1.0); TOTAL PROTEIN 4.7 GM/DL (6.4-8.2)
[2018-03-23 05:21] LABS: TROPONIN I GREATER THAN 40.00 NG/ML (0.02-0.05)
[2018-03-23 05:52] LABS: ALT (GPT) 10545 U/L (12-78); AST (GOT) 17431 U/L (15-37)
--- NOTE | 2018-03-23 06:33 | HHI.DS ---
Summary Note Date of : March 23, 2018 Time Of : 04:31 Admission Date March 20, 2018 at 10:30 Admitting Diagnosis Syncopal Episode/ Cardiac Arrest Diagnosis at Time of : Brief History This is a 27-year-old male that was exercising at the [employer] and per reports and review of medical records, became lightheaded and had a syncopal episode. The patient was admitted to the ED, was noted to have significant respiratory distress and possibly V. tach in route to the hospital. In the ED EKG was obtained which showed a right bundle and some ST changes and a STEMI notification was activated in the ED. the patient was seen by Dr. Pompa, cardiac catheterization emergently was performed. Per telephonic report from Dr. Pompa no obstructive coronary artery disease was visualized. CT angiography was performed to rule out pulmonary embolus and ascending aortogram to rule out dissection. Critical care medicine was consulted. Echo currently being performed. Upon immediate evaluation the patient was noted to have pink frothy sputum in the ET tube, dyssynchronous with the ventilator, spontaneous eye opening was noted however patient was not following commands, patient was on a propofol infusion, sinus tach heart rate 135, normotensive with a blood pressure 134/85. CBC/BMP: 03/23/18 0400 03/23/18 0400 Significant Findings Laboratory Tests Test 03/20/18 11:42 03/20/18 12:50 03/20/18 14:30 03/20/18 15:15 Bedside Potassium 5.4 MMOL/L (3.6-5.0) Bedside Creatinine 1.9 MG/DL (0.6-1.3) Bedside Glucose 163 MG/DL (68-110) Phosphorus Level 7.6 MG/DL (2.5-4.9) Troponin I 1.18 NG/ML (0.02-0.05) Acetaminophen Level LESS THAN 2.0 MCG/ML Blood Gas HCO3 18 mmol/L (22-26) Blood Gas Base Excess -7.1 mmol/L (-2-2) Arterial Blood pH 7.31 (7.380-7.420) Arterial Blood Partial Pressure CO2 37 mmHg (38-42) Arterial Blood Oxygen Content 22.5 Vol % (12.0-20.0) Blood Gas Hemoglobin 16.7 G/DL (12.0-16.0) Lactic Acid Level 5.7 mmol/L (0.4-2.0) Urine Benzodiazepines Screen POS (NEG) Test 03/20/18 16:01 03/20/18 17:38 03/20/18 20:54 03/21/18 04:40 Lactic Acid Level 5.7 mmol/L (0.4-2.0) 4.4 mmol/L (0.4-2.0) Blood Urea Nitrogen 24 MG/DL (7-18) 26 MG/DL (7-18) 34 MG/DL (7-18) Creatinine 3.09 MG/DL (0.60-1.30) 3.50 MG/DL (0.60-1.30) 4.58 MG/DL (0.60-1.30) Random Glucose 150 MG/DL (74-106) 112 MG/DL (74-106) Calcium Level 7.6 MG/DL (8.5-10.1) 7.1 MG/DL (8.5-10.1) 6.7 MG/DL (8.5-10.1) Phosphorus Level 2.0 MG/DL (2.5-4.9) 5.0 MG/DL (2.5-4.9) Magnesium Level 2.6 MG/DL (1.5-2.5) Chloride Level 110 MEQ/L (98-107) 114 MEQ/L (98-107) 110 MEQ/L (98-107) Carbon Dioxide Level 18.8 MEQ/L (21.0-32.0) 17.0 MEQ/L (21.0-32.0) 17.8 MEQ/L (21.0-32.0) Estimat Glomerular Filtration Rate 25 ML/MIN (>89) 21 ML/MIN (>89) 16 ML/MIN (>89) Troponin I GREATER THAN 40.00 NG/ML GREATER THAN 40.00 NG/ML White Blood Count 26.9 TH/MM3 (4.0-11.0) 22.0 TH/MM3 (4.0-11.0) Platelet Count 112 TH/MM3 (150-450) 50 TH/MM3 (150-450) Prothrombin Time 23.7 SEC (9.8-11.6) 31.0 SEC (9.8-11.6) Activated Partial Thromboplast Time 34.6 SEC (24.3-30.1) 74.5 SEC (24.3-30.1) Total Protein 6.0 GM/DL (6.4-8.2) 5.5 GM/DL (6.4-8.2) Albumin 3.2 GM/DL (3.4-5.0) 2.9 GM/DL (3.4-5.0) Aspartate Amino Transf (AST/SGOT) 2236 U/L (15-37) 3194 U/L (15-37) Alanine Aminotransferase (ALT/SGPT) 640 U/L (12-78) 1105 U/L (12-78) Protein Corrected Calcium 7.7 MG/DL (8.5-10.1) 7.5 MG/DL (8.5-10.1) Neutrophils (%) (Auto) 90.3 % (16.0-70.0) Lymphocytes (%) (Auto) 6.6 % (9.0-44.0) Neutrophils # (Auto) 19.9 TH/MM3 (1.8-7.7) Neutrophils % (Manual) 85 % (16-70) Band Neutrophils % 8 % (0-6) Lymphocytes % 6 % (9-44) Neutrophils # (Manual) 20.5 TH/MM3 (1.8-7.7) Nucleated Red Blood Cells 1 /100 WBC (0-0) Platelet Estimate LOW (NORMAL) Fibrinogen 119 mg/dL (227-377) Total Bilirubin 1.3 MG/DL (0.2-1.0) Total Creatine Kinase 68959 U/L (39-308) Creatine Kinase MB 843.8 NG/ML (0.5-3.6) Test 03/21/18 05:57 03/21/18 08:36 03/21/18 09:40 03/21/18 12:00 Blood Gas HCO3 17 mmol/L (22-26) 20 mmol/L (22-26) Blood Gas Base Excess -9.1 mmol/L (-2-2) -5.9 mmol/L (-2-2) Arterial Blood pH 7.27 (7.380-7.420) 7.30 (7.380-7.420) Arterial Blood Partial Pressure CO2 37 mmHg (38-42) Arterial Blood Partial Pressure O2 127 mmHg (61-120) 135 mmHg (61-120) Arterial Blood Oxygen Content 20.3 Vol % (12.0-20.0) D-Dimer Quantitative (PE/DVT) GREATER THAN 35.20 MG/L FEU Urine Color GIOVANNY (YELLW/STRAW) Urine Turbidity HAZY (CLEAR) Urine Protein 100 mg/dL (NEG-TRACE) Urine Glucose (UA) 70 mg/dL (NEG) Urine Occult Blood LARGE (NEG) Urine RBC 5 /hpf (0-3) Urine WBC 8 /hpf (0-5) Urine Bacteria RARE /hpf (NONE) Test 03/21/18 15:23 03/21/18 15:52 03/21/18 20:10 03/21/18 22:40 Lactic Acid Level 5.0 mmol/L (0.4-2.0) 8.1 mmol/L (0.4-2.0) Procalcitonin 3.10 ng/mL (0.00-0.08) Blood Gas HCO3 17 mmol/L (22-26) 12 mmol/L (22-26) Blood Gas Base Excess -8.3 mmol/L (-2-2) -13.9 mmol/L (-2-2) Arterial Blood pH 7.26 (7.380-7.420) 7.22 (7.380-7.420) White Blood Count 21.8 TH/MM3 (4.0-11.0) Red Blood Count 4.15 MIL/MM3 (4.50-5.90) Hemoglobin 12.6 GM/DL (13.0-17.0) Hematocrit 37.5 % (39.0-51.0) Platelet Count 28 TH/MM3 (150-450) Neutrophils (%) (Auto) 96.4 % (16.0-70.0) Lymphocytes (%) (Auto) 1.9 % (9.0-44.0) Neutrophils # (Auto) 21.1 TH/MM3 (1.8-7.7) Lymphocytes # (Auto) 0.4 TH/MM3 (1.0-4.8) Neutrophils % (Manual) 79 % (16-70) Band Neutrophils % 16 % (0-6) Lymphocytes % 2 % (9-44) Neutrophils # (Manual) 20.7 TH/MM3 (1.8-7.7) Nucleated Red Blood Cells 1 /100 WBC (0-0) Platelet Estimate LOW (NORMAL) Ovalocytes 1+ (NORMAL) Prothrombin Time 33.7 SEC (9.8-11.6) Blood Urea Nitrogen 44 MG/DL (7-18) Creatinine 6.37 MG/DL (0.60-1.30) Random Glucose 67 MG/DL (74-106) Total Protein 5.2 GM/DL (6.4-8.2) Albumin 2.6 GM/DL (3.4-5.0) Calcium Level 6.1 MG/DL (8.5-10.1) Aspartate Amino Transf (AST/SGOT) 8028 U/L (15-37) Alanine Aminotransferase (ALT/SGPT) 4813 U/L (12-78) Total Bilirubin 2.5 MG/DL (0.2-1.0) Potassium Level 5.7 MEQ/L (3.5-5.1) Carbon Dioxide Level 17.8 MEQ/L (21.0-32.0) Anion Gap 17 MEQ/L (5-15) Estimat Glomerular Filtration Rate 11 ML/MIN (>89) Protein Corrected Calcium 7.0 MG/DL (8.5-10.1) Total Creatine Kinase 988827 U/L (39-308) Creatine Kinase MB 738.3 NG/ML (0.5-3.6) Arterial Blood Partial Pressure CO2 32 mmHg (38-42) Arterial Blood Partial Pressure O2 237 mmHg (61-120) Blood Gas Hemoglobin 11.8 G/DL (12.0-16.0) Test 03/22/18 04:30 03/22/18 06:05 03/22/18 07:50 03/22/18 14:15 White Blood Count 27.1 TH/MM3 (4.0-11.0) Red Blood Count 4.14 MIL/MM3 (4.50-5.90) Hemoglobin 12.5 GM/DL (13.0-17.0) Mean Corpuscular Hemoglobin Concent 31.8 % (32.0-36.0) Platelet Count 74 TH/MM3 (150-450) Neutrophils (%) (Auto) 94.6 % (16.0-70.0) Lymphocytes (%) (Auto) 3.7 % (9.0-44.0) Neutrophils # (Auto) 25.7 TH/MM3 (1.8-7.7) Neutrophils % (Manual) 79 % (16-70) Band Neutrophils % 15 % (0-6) Lymphocytes % 4 % (9-44) Neutrophils # (Manual) 25.7 TH/MM3 (1.8-7.7) Myelocytes 1 % (0-0) Nucleated Red Blood Cells 4 /100 WBC (0-0) Toxic Vacuolation PRESENT (NONE SEEN) Platelet Estimate LOW (NORMAL) [place] Cells 1+ (NORMAL) Prothrombin Time 37.8 SEC (9.8-11.6) Activated Partial Thromboplast Time 44.2 SEC (24.3-30.1) Fibrinogen 114 mg/dL (227-377) Blood Urea Nitrogen 40 MG/DL (7-18) Creatinine 6.52 MG/DL (0.60-1.30) Total Protein 5.0 GM/DL (6.4-8.2) Albumin 2.3 GM/DL (3.4-5.0) Calcium Level 6.1 MG/DL (8.5-10.1) Phosphorus Level 9.7 MG/DL (2.5-4.9) Aspartate Amino Transf (AST/SGOT) GREATER THAN 74495 U/L Alanine Aminotransferase (ALT/SGPT) GREATER THAN 67108 U/L Total Bilirubin 2.6 MG/DL (0.2-1.0) Potassium Level 6.0 MEQ/L (3.5-5.1) Carbon Dioxide Level 12.1 MEQ/L (21.0-32.0) Anion Gap 30 MEQ/L (5-15) Estimat Glomerular Filtration Rate 10 ML/MIN (>89) Lactic Acid Level 19.7 mmol/L (0.4-2.0) Protein Corrected Calcium 7.1 MG/DL (8.5-10.1) Iron Level 223 MCG/DL (65-175) Total Iron Binding Capacity 176 MCG/DL (250-450) Percent Iron Saturation 100.0 % (20-50) Ferritin GREATER THAN 2000 NG/ML Total Creatine Kinase 110053 U/L (39-308) Creatine Kinase MB 578.6 NG/ML (0.5-3.6) Troponin I GREATER THAN 40.00 NG/ML Blood Gas HCO3 10 mmol/L (22-26) Blood Gas Base Excess -19.6 mmol/L (-2-2) Blood Gas Oxygen Saturation 87 % (90-100) Arterial Blood pH 6.95 (7.380-7.420) Arterial Blood Partial Pressure CO2 49 mmHg (38-42) Salicylates Level LESS THAN 1.7 MG/DL Acetaminophen Level 5.0 MCG/ML (10.0-30.0) Test 03/22/18 18:30 03/23/18 00:10 03/23/18 04:00 Lactic Acid Level 20.8 mmol/L (0.4-2.0) 21.0 mmol/L (0.4-2.0) 21.9 mmol/L (0.4-2.0) Total Creatine Kinase 167947 U/L (39-308) 839412 U/L (39-308) 348951 U/L (39-308) Creatine Kinase MB 700.5 NG/ML (0.5-3.6) 720.2 NG/ML (0.5-3.6) 752.6 NG/ML (0.5-3.6) White Blood Count 21.8 TH/MM3 (4.0-11.0) Red Blood Count 3.14 MIL/MM3 (4.50-5.90) Hemoglobin 9.7 GM/DL (13.0-17.0) Hematocrit 30.8 % (39.0-51.0) Mean Corpuscular Hemoglobin Concent 31.3 % (32.0-36.0) Platelet Count 59 TH/MM3 (150-450) Prothrombin Time 43.7 SEC (9.8-11.6) Activated Partial Thromboplast Time 52.3 SEC (24.3-30.1) Fibrinogen 85 mg/dL (227-377) Blood Urea Nitrogen 22 MG/DL (7-18) Creatinine 4.72 MG/DL (0.60-1.30) Random Glucose 358 MG/DL (74-106) Total Protein 4.7 GM/DL (6.4-8.2) Albumin 2.3 GM/DL (3.4-5.0) Calcium Level 7.3 MG/DL (8.5-10.1) Phosphorus Level 9.0 MG/DL (2.5-4.9) Alkaline Phosphatase 124 U/L (45-117) Aspartate Amino Transf (AST/SGOT) 14442 U/L (15-37) Alanine Aminotransferase (ALT/SGPT) 27479 U/L (12-78) Total Bilirubin 4.8 MG/DL (0.2-1.0) Chloride Level 93 MEQ/L (98-107) Carbon Dioxide Level 10.1 MEQ/L (21.0-32.0) Anion Gap 35 MEQ/L (5-15) Estimat Glomerular Filtration Rate 15 ML/MIN (>89) Troponin I GREATER THAN 40.00 NG/ML Imaging Last Impressions Chest X-Ray 03/21/18 0600 Signed Impressions: Service Date/Time: Wednesday, March 21, 2018 03:58 - CONCLUSION: 1. Cardiomegaly. Bilateral mostly basilar airspace disease similar to March 20. Support apparatus in good position. Da Kay MD Head CT 03/20/18 0000 Signed Impressions: Service Date/Time: Tuesday, March 20, 2018 10:57 - CONCLUSION: Normal examination. Per Barakat MD CT Angiography 03/20/18 0000 Signed Impressions: Service Date/Time: Tuesday, March 20, 2018 11:04 - CONCLUSION: 1. No pulmonary embolus. 2. Fairly extensive dependent areas of consolidation in both hemithoraces. 3. Innumerable ground glass nodular densities in the aerated portions of the lung most prominent in the apices. Findings are nonspecific but could represent alveolar hemorrhage or septic emboli. Dexter Benitez MD Last Impressions Head CT 03/20/18 0000 Signed Impressions: Service Date/Time: Tuesday, March 20, 2018 10:57 - CONCLUSION: Normal examination. Per Barakat MD Chest X-Ray 03/20/18 0000 Signed Impressions: Service Date/Time: Tuesday, March 20, 2018 09:33 - CONCLUSION: Patchy left basilar airspace disease. Endotracheal tube placement. Per Barakat MD CT Angiography 03/20/18 0000 Signed Impressions: Service Date/Time: Tuesday, March 20, 2018 11:04 - CONCLUSION: 1. No pulmonary embolus. 2. Fairly extensive dependent areas of consolidation in both hemithoraces. 3. Innumerable ground glass nodular densities in the aerated portions of the lung most prominent in the apices. Findings are nonspecific but could represent alveolar hemorrhage or septic emboli. Dexter Benitez MD Hospital Course This is a 27-year-old male that [place] [employer] and per reports and review of medical records, became lightheaded and had a syncopal episode. The patient was admitted to the ED, was noted to have significant respiratory distress and possibly V. tach in route to the hospital. In the ED EKG was obtained which showed a right bundle and some ST changes and a STEMI notification was activated in the ED. the patient was seen by Dr. Pompa, cardiac catheterization emergently was performed. Per telephonic report from Dr. Pompa no obstructive coronary artery disease was visualized. CT angiography was performed to rule out pulmonary embolus and ascending aortogram to rule out dissection. Critical care medicine was consulted. Echo currently being performed. Upon immediate evaluation the patient was noted to have pink frothy sputum in the ET tube, dyssynchronous with the ventilator, spontaneous eye opening was noted however patient was not following commands, patient was on a propofol infusion, sinus tach heart rate 135, normotensive with a blood pressure 134/85. 03/21: Last evening, patient's second troponin level greater than 40, central line and arterial line placed patient was placed initially on heparin and Phenylephrine infusion. Dr. Pompa discussed case with Dr. Martell possible repeat of echo today as RV was not well visualized on initial echo yesterday. Weaning of sedation yesterday afternoon patient awake responding to commands, then placed on sedation for ventilator synchrony. During the night the patient became hypoglycemic and received an amp of D50, D5W was started. Noted liver enzymes elevated possibly secondary to shock liver, am labs pending. Dietary consult initiated for initiation of tube feeds today. The patient was pancultured yesterday and empiric antibiotics was initiated. He continues to have elevations in temperature WBC count slightly trending down, ID has been consulted. This a.m. the patient was noted to have moderate thrombocytopenia with platelet count diminished HIT panel, fibrinogen and d-dimer pending. Heparin infusion was discontinued. Early this a.m. the patient was noted to have a metabolic acidosis patient receiving 2 A of bicarb repeat ABG pending. Lactate level downtrending. Repeat troponin pending. 03/22: in extremis and refractory shock this morning. pH < 6.9. lactate 19. on multiple vasopressors. fulminant liver failure. DIC. CK continues to rise. discussed case with Dr. Diane and starting emergent IHD transitioning to CVVHD. CVP 10-13, giving additional ivf in the form of albumin and blood products. arterial line no longer functioning accurately and required emergent femoral arterial line placement. all organ systems worse. I performed bedside critical care ultrasonography which demonstrated grossly preserved LV function, no pericardial effusion. RV grossly functioning, although poorly visualized. unable to visualize IVC. compared echo to formal echo done 03/21, and no significant change noted. 03/23: despite maximal efforts, refractory shock never resolved and the patient at 04:31am. Johnnie Spivey MD March 23, 2018 06:33
[2018-03-23] MEDS ORDERED: INSULIN ASPART SUPPLEMENTAL SCALE SQ SCH (08:00)
[2018-03-23] MEDS ORDERED: DOBUTamine INJ 250 MG in DEXTROSE 5% IN WATER INJ 230 ML IV PRN ×2 (16:00)
[2018-03-23] MEDS ORDERED: VANCOMYCIN 1,500 MG/NS 500 ML IV ONE ×2 (16:00)
[2018-03-24 13:55] LABS: SMOOTH MUSCLE TOTAL AUTOABS Negative (Negative); TRANSGLUTAMINASE IGA AB <1.2 U/mL; TRANSGLUTAMINASE IGG AB <1.2 U/mL
[2018-03-24 15:08] LABS: MYCOPLASMA PNEUMONIAE IGG Positive (Negative); MYCOPLASMA PNEUMONIAE IGM Negative (Negative)
[2018-03-24 18:11] LABS: ALPHA-1-ANTITRYPSIN 78 mg/dL (100 - 190); TESTOSTERONE,TOTAL 33 ng/dL (240-950)
[2018-03-25 03:51] LABS: ENDOMYSIAL AB SCREEN ND (NEGATIVE); ENDOMYSIAL AB TITER ND (<1:5)
== END 2018-03-23 04:31 | disposition expired ==
LOC: NEPE 09:20 → NEDA 10:30 → HCVI 11:17
PROVIDERS: ADMIT Internal Medicine Critical Care Medicine; ATTEND Internal Medicine Critical Care Medicine
PROC: 4A023N7 Measurement of Cardiac Sampling and Pressure, Left Heart, Percutaneous Approach (ICD-10-PCS; 2018-03-20)
PROC: B2151ZZ Fluoroscopy of Left Heart using Low Osmolar Contrast (ICD-10-PCS; 2018-03-20)
PROC: B2111ZZ Fluoroscopy of Multiple Coronary Arteries using Low Osmolar Contrast (ICD-10-PCS; 2018-03-20)
PROC: B3101ZZ Fluoroscopy of Thoracic Aorta using Low Osmolar Contrast (ICD-10-PCS; 2018-03-20)
PROC: 5A1945Z Respiratory Ventilation, 24-96 Consecutive Hours (ICD-10-PCS; 2018-03-20)
PROC: 03HY32Z Insertion of Monitoring Device into Upper Artery, Percutaneous Approach (ICD-10-PCS; 2018-03-20)
PROC: 02HV33Z Insertion of Infusion Device into Superior Vena Cava, Percutaneous Approach (ICD-10-PCS; 2018-03-20)
PROC: 30233K1 Transfusion of Nonautologous Frozen Plasma into Peripheral Vein, Percutaneous Approach (ICD-10-PCS; principal; 2018-03-21)
PROC: 30233R1 Transfusion of Nonautologous Platelets into Peripheral Vein, Percutaneous Approach (ICD-10-PCS; 2018-03-21)
PROC: 30233M1 Transfusion of Nonautologous Plasma Cryoprecipitate into Peripheral Vein, Percutaneous Approach (ICD-10-PCS; 2018-03-21)
PROC: 04HY32Z Insertion of Monitoring Device into Lower Artery, Percutaneous Approach (ICD-10-PCS; 2018-03-22)
PROC: 30233N1 Transfusion of Nonautologous Red Blood Cells into Peripheral Vein, Percutaneous Approach (ICD-10-PCS; 2018-03-22)
PROC: 02H633Z Insertion of Infusion Device into Right Atrium, Percutaneous Approach (ICD-10-PCS; 2018-03-22)
PROC: 5A1D90Z Performance of Urinary Filtration, Continuous, Greater than 18 hours Per Day (ICD-10-PCS; 2018-03-22)
DX: R57.0 Cardiogenic shock (principal); K72.00 Acute and subacute hepatic failure without coma; I21.A1 Myocardial infarction type 2; D65 Disseminated intravascular coagulation [defibrination syndrome]; J96.01 Acute respiratory failure with hypoxia; J96.02 Acute respiratory failure with hypercapnia; G93.41 Metabolic encephalopathy; A41.9 Sepsis, unspecified organism; J18.9 Pneumonia, unspecified organism; D68.4 Acquired coagulation factor deficiency; N17.0 Acute kidney failure with tubular necrosis; D68.8 Other specified coagulation defects; E87.2 Acidosis; M62.82 Rhabdomyolysis; I47.2 Ventricular tachycardia; E16.2 Hypoglycemia, unspecified; E66.3 Overweight; E83.51 Hypocalcemia; E87.5 Hyperkalemia; Z68.38 Body mass index [BMI] 38.0-38.9, adult; I45.10 Unspecified right bundle-branch block; T17.918A Gastric contents in respiratory tract, part unspecified causing other injury, initial encounter; R40.2431 Glasgow coma scale score 3-8, in the field [EMT or ambulance]; R00.1 Bradycardia, unspecified
CPT/HCPCS: 36430; 36600; 70450; 71045; 71275; 74018; 74176; 76775; 80048; 80053; 80074; 80202; 80307; 81001; 82103; 82390; 82533; 82550; 82552; 82570; 82728; 82784; 82805; 82948; 83516; 83520; 83540; 83550; 83605; 83735; 84100; 84145; 84300; 84403; 84484; 85007; 85027; 85379; 85384; 85610; 85652; 85730; 86022; 86038; 86140; 86255; 86738; 86753; 86850; 86900; 86901; 86920; 86927; 86965; 87040; 87070; 87086; 87205; 87449; 87641; 87804; 90935; 93005; 93306; 93308; 93458; 94002; 94003; 94640; 94664; 96374; 96375; C1769; C1893; J0132; J0153; J0171; J0456; J0461; J0610; J1250; J1644; J1720; J1940; J2248; J2250; J2370; J2543; J3010; J3370; J3475; J3480; J7030; J7040; J7042; J7050; J7060; J7070; J7120; P9016; P9017; P9035; P9045; Q9967